=== PATIENT | male | born 1985 | race Caucasian/White ===

== ENCOUNTER 2021-07-14 23:42 | Emergency (ER) | payer SELFPAY ==
[2021-07-14 23:53] VITALS: BP 145/90; PULSE 81; RESP 18; TEMP 36.9; O2SAT 97; BMI 39.3
--- NOTE | 2021-07-15 00:16 | PC.NURSE ---
ultrasound at bedside
--- NOTE | 2021-07-15 00:27 | W.ED.GENADLT ---
HPI - General Adult General: Chief complaint: General Medical Stated complaint: Knot on Testicals Time Seen by Provider: 07/14/21 23:45 Source: patient Mode of arrival: ambulatory Limitations: no limitations History of Present Illness: HPI narrative: 36-year-old male states he been having right testicle pain over the last 2 to 3 days. He states he has a spot that he can feel in his right testicle it feels like a knot. Denies any worsening improving factors. Denies any fevers. States he does have some pain he rates a 4 out of 10. Denies any vomiting or diarrhea. Associated symptoms: Deny chest pain, dyspnea, headache(s), nausea, rash or vomiting Review of Systems Const: Denies: fever(s), chills, body aches or change in appetite Eyes: Denies: blurry vision or eye discomfort ENMT: Denies: throat pain or dental pain Card: Denies: chest pain Resp: Denies: dyspnea GI: Denies: abdominal pain, nausea, vomiting or diarrhea : Reports: testicular pain Musc: Denies: neck pain or back pain Skin/Breast: Denies: rash Neuro: Denies: headache(s) Psych: Denies: depression Maxwell/Lymph: Denies: easy bruising All/Imm: Denies: urticaria Physical Exam Const: COMMON NORMALS: no acute distress, patient oriented x3 and healthy appearing HENMT: COMMON NORMALS: normocephalic and atraumatic HEAD & SCALP: normocephalic and atraumatic Eye: COMMON NORMALS: Equal, round and reactive pupils present and EOMs intact bilaterally PUPIL: Yes Equal, round and reactive pupils present Neck/C-Spine: COMMON NORMALS: full ROM and supple Chest: COMMONS NORMALS: normal inspection of the chest and normal palpation of entire chest wall Resp: COMMON NORMALS: normal respiratory effort, No retractions, No use of accessory muscles and clear to auscultation bilaterally AUSCULTATION: clear to auscultation bilaterally Cardio: COMMON NORMALS: regular rate, regular rhythm and No murmurs present (Cardio) RATE: regular rate RHYTHM: regular rhythm GI: COMMON NORMALS: Normal to inspection, nondistended, normoactive bowel sounds present, Soft to palpation, non-tender and no masses PALPATION: Yes Soft to palpation : OTHER: Slight tenderness to right testicle with some thickened skin no obvious abscess. Extremity: COMMON NORMALS: normal to inspection and full ROM Neuro: COMMON NORMALS: patient oriented x3, moves all extremities and no focal motor deficits Psych: COMMON NORMALS: mental status grossly normal, Normal thought process present and cooperative THOUGHT PROCESS: Normal thought process present Skin: COMMON NORMALS: no rashes or lesions noted and no wounds GENERAL SKIN EXAM: no rashes or lesions noted Course Vital Signs: Vital signs: Vital Signs Temperature 98.5 F 07/14/21 23:53 Pulse Rate 81 07/14/21 23:53 Respiratory Rate 18 07/14/21 23:53 Blood Pressure 145/90 07/14/21 23:53 Pulse Oximetry 97 07/14/21 23:53 MDM - General Adult MDM Narrative: Medical decision making narrative: Patient presents here with likely some erythema cellulitis to his testicle. On exam its mild he has no signs of Junior's gangrene. He is afebrile here and nontoxic-appearing. We'll start him on Bactrim and Keflex and he is to follow-up with his PCP and return if worsening. He understands and agrees to plan. Imaging Data^: US: Radiologist's impression: [address] 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 Real-time duplex ultrasound scan of the arterial or venous flow with marte scale, color Doppler flow and spectral waveform analysis with image documentation. Limited Duplex exam focused of the scrotum. Duplex images required to evaluate for torsion and other vascular conditions. COMPARISON: No relevant prior studies available. FINDINGS: Right testicle: Unremarkable. Normal right testicular blood flow and waveform. Left testicle: Unremarkable. Normal left testicular blood flow and waveform. Epididymides: Normal. Scrotum: Thickened scrotal wall with increased vascularity, suggestive of cellulitis. No fluid collection. Physiologic-range peritesticular fluid bilaterally. / scrotum [id number] IMPRESSION: 1. Thickened scrotal wall with increased vascularity, suggestive of cellulitis. No fluid collection. 2. No testicular torsion. Dictated By: Javier Dahl MD Signed By: Javier Dahl MD Signed Date/Time: 07/15/2137 DD/ Discharge Plan Discharge Patient Disposition: Home Clinical Impression: Pain in right testicle, Cellulitis Condition: Stable Prescriptions: New Bactrim DS 800-160 mg tablet 1 tab PO BID 10 Days Qty: 20 RF: 0 cephalexin 500 mg capsule 500 mg PO TID 7 Days Qty: 21 RF: 0 Discharge Orders: Discharge ED (Routine); Ordered 07/15/21 Ordered By: Wilfrido Orozco Discharge Diet: Advance as tolerated Discharge Activity: Resume usual activity Patient Instructions: Testicle Pain (ED) Coding Level of Care Code ED Marble Machine Tender for Chg Fwd Exam Comprehensive
[2021-07-15] MEDS: sulfamethoxazole-trimeth DS 160-800 mg Tablet 1 TAB PO (00:51)
[2021-07-15 01:07] VITALS: PULSE 91; RESP 18
--- NOTE | 2021-07-15 09:35 | DCPLANNER ---
senior engineering manager had message to schedule a follow up appointment for patient with Dr. Alvarado. senior engineering manager called the office of Dr. Alvarado, spoke with Tanya, gave clinic patients information. senior engineering manager was told that patients information would be printed and reviewed. Clinic will call patient with appointment information.
--- NOTE | 2021-07-15 23:45 | USR_ITS ---
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 Real-time duplex ultrasound scan of the arterial or venous flow with marte scale, color Doppler flow and spectral waveform analysis with image documentation. Limited Duplex exam focused of the scrotum. Duplex images required to evaluate for torsion and other vascular conditions. COMPARISON: No relevant prior studies available. FINDINGS: Right testicle: Unremarkable. Normal right testicular blood flow and waveform. Left testicle: Unremarkable. Normal left testicular blood flow and waveform. Epididymides: Normal. Scrotum: Thickened scrotal wall with increased vascularity, suggestive of cellulitis. No fluid collection. Physiologic-range peritesticular fluid bilaterally. US/US scrotum [id number] IMPRESSION: 1. Thickened scrotal wall with increased vascularity, suggestive of cellulitis. No fluid collection. 2. No testicular torsion.
--- NOTE | 2021-07-16 10:06 | DCPLANNER ---
Patient has a follow up appointment scheduled for , July 16, 2021 at 10:[address] Alvarado. Clinic will call patient with appointment information.
--- NOTE | 2021-07-17 15:05 | DCPLANNER ---
A follow up appointment was scheduled for patient the appointment was cancelled due to clinic not being able to reach patient.
== END 2021-07-15 01:27 | disposition home or self-care (01) ==
PROVIDERS: Emergency Provider Emergency Medicine
DX: N50.811 Right testicular pain (principal); N49.2 Inflammatory disorders of scrotum
CPT/HCPCS: 76870; 99283

== ENCOUNTER 2021-09-24 18:38 | Emergency (ER) | payer SELFPAY ==
[2021-09-24 19:25] VITALS: BP 147/96; PULSE 100; RESP 18; TEMP 36.7; O2SAT 98; BMI 39.3
[2021-09-24 20:55] VITALS: PULSE 88; RESP 18; TEMP 36.2; O2SAT 99
--- NOTE | 2021-09-24 21:02 | ED_ITS ---
HPI - Skin/Abscess/Foreign Bdy General: Chief complaint: Skin/Abscess/Foreign Body Stated complaint: INFLAMMATION/SWELLING OF L LEG WOUND Time Seen by Provider: 09/24/21 20:51 History of Present Illness: HPI narrative: Patient is a 36-year-old male comes to the ED with left lower leg wound and swelling. Patient says yesterday he had a small superficial circular wound around the left lower leg. He says it was only the size of like a pinhead. He was not sure if he got it from a spider bite potentially or from something else. Today the wound got a little larger and has swelling and erythema surrounding it. Some purulent drainage noted. Describes the pain as throbbing and its an 8 out of 10. Associated symptoms: Deny chills, fever(s), nausea or vomiting Review of Systems Const: Denies: fever(s), chills or fatigue Eyes: Denies: change in vision or eye discomfort ENMT: Denies: throat pain, odynophagia, nasal discharge or nasal congestion Card: Denies: chest pain, palpitations, edema, swelling of feet/ankles, dyspnea on exertion or orthopnea Resp: Denies: dyspnea, productive cough or non-productive cough GI: Denies: abdominal pain, nausea, vomiting, diarrhea, constipation or hematochezia : Denies: flank pain, difficulty urinating, dysuria or hematuria Musc: Denies: neck pain, back pain or extremity swelling Skin/Breast: Reports: new lesions (Small wound on left lower leg with erythema and warmth.); Denies: rash Neuro: Denies: headache(s), numbness in extremities or weakness in extremities Physical Exam Const: COMMON NORMALS: no acute distress, patient oriented x3 and alert GENERAL APPEARANCE: cooperative and comfortable HENMT: COMMON NORMALS: normocephalic HEAD & SCALP: normocephalic MOUTH: Normal oral and palatal mucosa present THROAT: posterior oropharynx normal and uvula midline Neck/C-Spine: COMMON NORMALS: supple GENERAL: Yes normal visual inspection Resp: COMMON NORMALS: normal respiratory effort, No retractions, No use of accessory muscles and clear to auscultation bilaterally AUSCULTATION: clear to auscultation bilaterally Cardio: COMMON NORMALS: regular rate, regular rhythm, S1 normal heart sound present, S2 normal heart sound present, No gallops present (Cardio), No clicks present (Cardio), No murmurs present (Cardio) and Peripheral pulses 2+ throughout RATE: regular rate RHYTHM: regular rhythm HEART SOUNDS: S1 normal heart sound present and S2 normal heart sound present PERIPHERAL PULSES: Peripheral pulses 2+ throughout GI: COMMON NORMALS: Normal to inspection, nondistended, normoactive bowel sounds present, Soft to palpation, non-tender and no masses PALPATION: Yes Soft to palpation : COMMON NORMALS: Yes no CVA tenderness BLADDER/KIDNEY EXAM: Yes no CVA tenderness Back/Pelvis: COMMON NORMALS: no CVA tenderness Extremity: NARRATIVE EXTREMITY EXAM: Left lower leg?patient has small ulceration with surrounding erythema, warmth and tenderness. Some small purulent drainage noted. Findings suggestive of cellulitis GENERAL: Yes normal exam except as noted Neuro: COMMON NORMALS: patient oriented x3 and moves all extremities SENSORIUM/ORIENTATION: Yes alert Skin: GENERAL SKIN EXAM: dry skin Course Vital Signs: Vital signs: Vital Signs Temperature 97.1 F L 09/24/21 20:55 Pulse Rate 72 09/24/21 21:42 Respiratory Rate 18 09/24/21 21:42 Blood Pressure 147/96 09/24/21 19:25 Pulse Oximetry 98 09/24/21 21:42 MDM - Skin/Abscess/Foreign Bdy MDM Narrative: Medical decision making narrative: Patient is a 36-year-old male comes to the ED with left lower extremity lesion. Exam shows cellulitis on left lower extremity with some purulent drainage noted. Vitals are stable patient appears nontoxic and in no acute distress. Patient was given an IM dose of Rocephin to help with infection. Patient diagnosed with cellulitis and discharged home with a prescription for Bactrim and ibuprofen 800 mg for pain. Return to ED precautions given. Follow-up with PCP in 7 to 10 days for reevaluation. Patient understood and agreed with plan. Discharge Plan Discharge Patient Disposition: Home Clinical Impression: Cellulitis Qualifiers: Site of cellulitis: extremity Site of cellulitis of extremity: lower extremity Laterality: left Qualified Code(s): L03.116 - Cellulitis of left lower limb Condition: Stable Prescriptions: New Bactrim DS 800-160 mg tablet 1 tab PO BID 10 Days Qty: 20 RF: 0 ibuprofen 800 mg tablet 800 mg PO Q8H PRN (Reason: pain) Qty: 20 RF: 0 Discharge Orders: Discharge ED (Routine); Ordered 09/24/21 Ordered By: Chan Arango Discharge Diet: Regular Discharge Activity: Resume usual activity Patient Instructions: Cellulitis (ED) Activity Restrictions/Additional Instructions: Follow-up with medical provider as directed in 5 to 7 days for reevaluation. Take medications as prescribed. You should start noticing an improvement in symptoms after being on antibiotic for over 48 hours. You can ice and elevate left leg to help with some of the swelling. Return to the ER or your medical provider if condition worsens. Please read and understand discharge instructions. Thank you for choosing [facility] for your healthcare needs today. Please realize this is an emergency room and that we are providing you with a medical screening exam and this may not be complete and all inclusive of all the testing and or work up that you may need to determine your ailment or severity of your illness. It is very important that you follow up as instructed or that you return to the Emergency Department should you have concerns or if your con dition changes or worsens in any way. Coding Level of Care Code ED Customer Service Operator for Fabian Colón
[2021-09-24] MEDS: HYDROcodone-acetaminophen 7.5-325 mg Tablet 1 TAB PO (21:25)
[2021-09-24] MEDS: cefTRIAXone 1,000 MG in lidocaine 1% 2.1 ML 2 MG IM (21:25)
[2021-09-24 21:42] VITALS: PULSE 72; RESP 18; O2SAT 98
== END 2021-09-24 21:43 | disposition home or self-care (01) ==
PROVIDERS: Emergency Provider Physician Assistant
DX: L03.116 Cellulitis of left lower limb (principal)
CPT/HCPCS: 96372; 99283; J0696

== ENCOUNTER 2021-11-29 10:00 | Emergency (ER) | payer OTHER, SELFPAY ==
[2021-11-29 10:09] VITALS: BP 174/100; PULSE 95; RESP 15; TEMP 36.9; O2SAT 95; BMI 38.0
--- NOTE | 2021-11-29 10:19 | W.ED.SKABFB ---
HPI - Skin/Abscess/Foreign Bdy General: Chief complaint: Skin/Abscess/Foreign Body Stated complaint: KNOT ON RIGHT SHOULDER Time Seen by Provider: 11/29/21 10:18 Source: patient Mode of arrival: ambulatory Limitations: no limitations History of Present Illness: HPI narrative: Patient is a 36-year-old male who presents to ED today with a complaint of a possible abscess to his right upper back that he has noticed over the past 2 to 3 days. Patient states he does have a history of previous abscesses. He is not sure if culture had ever been obtained. Denies known history of MRSA. He states he did have a similar lesion to his left lower extremity a while back that was treated successfully with Bactrim. Patient states lesion to his back has not been draining. No fevers, chills, body aches. MD complaint: abscess/boil Onset (ago): day(s) Tetanus up to date: yes Location: back Pain Consistency: constant Relieving factors: none Exacerbating factors: none Context: none Associated symptoms: Reports no associated symptoms; Deny chills, fever(s), nausea or vomiting Treatments prior to arrival: none Review of Systems Const: Denies: fever(s), chills, body aches, fatigue or malaise GI: Denies: nausea, vomiting or diarrhea Skin/Breast: Reports: new lesions Neuro: Denies: numbness in extremities, weakness in extremities or sensory changes Physical Exam Const: COMMON NORMALS: no acute distress, patient oriented x3, no limitations and alert GENERAL APPEARANCE: cooperative NUTRITIONAL APPEARANCE: obese ORIENTATION/CONSCIOUSNESS: Yes awake, Yes oriented to person, Yes oriented to place and Yes oriented to time Back/Pelvis: COMMON NORMALS: thoracic and lumbar spine normal to inspection, no thoracic nor lumbar tenderness and thoraco-lumbar ROM normal BACK IMAGE (MALE): 1. 1.5 in mildly indurated erythematous developing abscess; no cyst; no drainage or fluctuance at this time Extremity: COMMON NORMALS: normal to inspection and full ROM GENERAL: Yes normal exam except as noted Neuro: COMMON NORMALS: patient oriented x3 SENSORIUM/ORIENTATION: Yes alert, Yes oriented to person, Yes oriented to place and Yes oriented to time Course Vital Signs: Vital signs: Vital Signs Temperature 98.5 F 11/29/21 10:09 Pulse Rate 95 11/29/21 10:09 Respiratory Rate 15 11/29/21 10:09 Blood Pressure 174/100 11/29/21 10:09 Pulse Oximetry 95 11/29/21 10:09 MDM - Skin/Abscess/Foreign Bdy MDM Narrative: Medical decision making narrative: Patient is not amendable to I&D at this time. Patient will be placed on Bactrim. Return to ED/follow up with PCP precautions given. Discharge Plan Discharge Patient Disposition: Home Clinical Impression: Abscess of skin or subcutaneous tissue Qualifiers: Site of cutaneous abscess: trunk Site of cutaneous abscess of trunk: back Qualified Code(s): L02.212 - Cutaneous abscess of back [any part, except buttock] Condition: Stable Prescriptions: New Bactrim DS 800-160 mg tablet 1 tab PO BID 7 Days Qty: 14 RF: 0 No Action ibuprofen 800 mg tablet 800 mg PO Q8H PRN (Reason: pain) Qty: 20 RF: 0 Discharge Orders: Discharge ED (Routine); Ordered 11/29/21 Ordered By: Radhika Jose Referrals: Rob Tyler, [facility] PROGRAM COORDINATOR-C [Primary Care Provider] - Patient Instructions: Sulfamethoxazole/Trimethoprim (By mouth) (Bactrim, Bactrim DS,..., Abscess (ED) Activity Restrictions/Additional Instructions: Please monitor your abscess for worsening symptoms such as worsening redness, swelling, increased drainage, red streaking, or fevers. If you have been on antibiotics for over 48 hours and continue to worsen you need to immediately return to the emergency department for re-evaluation. If your abscess was incised and drained and packing was placed, you should have received instructions on when to return to the emergency department for re-packing. Coding Level of Care Code ED Generator Operator for Fabian Colón
== END 2021-11-29 10:51 | disposition home or self-care (01) ==
PROVIDERS: Emergency Provider Physician Assistant; PCP Nurse Practitioner
DX: L02.12 Furuncle of neck (principal)
CPT/HCPCS: 99282

== ENCOUNTER 2021-12-02 10:17 | Emergency (ER) | payer OTHER, SELFPAY ==
[2021-12-02 11:06] VITALS: BP 157/83; PULSE 75; RESP 19; TEMP 37.1; O2SAT 99; BMI 39.3
--- NOTE | 2021-12-02 11:24 | W.ED.SKABFB ---
HPI - Skin/Abscess/Foreign Bdy General: Chief complaint: Extremity Problem,Nontraumatic Stated complaint: RIGHT SHOULDER PAIN Time Seen by Provider: 12/02/21 11:16 Source: patient Mode of arrival: ambulatory Limitations: no limitations History of Present Illness: HPI narrative: Patient is a 36-year-old male who presents to ED today for reevaluation of a right -sided back abscess. Patient was seen by myself 3 days ago and placed on Bactrim. Abscess was not amendable to I&D at that time. Patient states abscess is not seemed to improve much. He is complaining of pain around the abscess (shoulder/neck). Full ROM to these areas. Patient denies fevers, chills, body aches. He has not noticed any drainage from the abscess. MD complaint: abscess/boil Onset (ago): day(s) Tetanus up to date: yes Location: back Relieving factors: none Exacerbating factors: none Associated symptoms: Deny chills, fever(s), nausea or vomiting Treatments prior to arrival: antibiotic Review of Systems Const: Denies: fever(s), chills, body aches, fatigue or malaise Card: Denies: chest pain Resp: Denies: dyspnea GI: Denies: abdominal pain, nausea or vomiting Musc: Reports: neck pain and extremity pain; Denies: back pain, extremity swelling, joint pain, joint swelling, joint stiffness or limited range of motion Skin/Breast: Reports: other (abscess) Neuro: Denies: numbness in extremities, weakness in extremities or sensory changes Physical Exam Const: COMMON NORMALS: no acute distress, patient oriented x3, no limitations and alert GENERAL APPEARANCE: cooperative NUTRITIONAL APPEARANCE: obese ORIENTATION/CONSCIOUSNESS: Yes awake, Yes oriented to person, Yes oriented to place and Yes oriented to time Neck/C-Spine: COMMON NORMALS: full ROM CERVICAL SPINE: Yes cervical ROM normal and No Cervical spine tenderness Resp: COMMON NORMALS: normal respiratory effort and clear to auscultation bilaterally AUSCULTATION: clear to auscultation bilaterally Cardio: COMMON NORMALS: regular rate and regular rhythm RATE: regular rate RHYTHM: regular rhythm Extremity: COMMON NORMALS: normal to inspection and full ROM GENERAL: Yes normal exam except as noted Neuro: COMMON NORMALS: patient oriented x3 SENSORIUM/ORIENTATION: Yes alert, Yes oriented to person, Yes oriented to place and Yes oriented to time Skin: NARRATIVE SKIN EXAM: abscess to R posterior upper back/shoulder; abscess hasn't changed in size much since I last saw it (about 1.5 inches of erythema/induration)-very mild fluctuance noted today that wasn't there on previous visit Procedures Abscess I/D Site: back Side (if applicable): left Local Anesthetic: lidocaine 1% and with epi Amount of anesthesia used (mL): 3.0 Technique: incised with #11 blade Amount of fluid expressed (mL): 7 Irrigation: Yes Packing used?: plain Course Vital Signs: Vital signs: Vital Signs Temperature 98.7 F 12/02/21 11:06 Pulse Rate 75 12/02/21 11:06 Respiratory Rate 19 H 12/02/21 11:06 Blood Pressure 157/83 12/02/21 11:06 Pulse Oximetry 99 12/02/21 11:06 MDM - Skin/Abscess/Foreign Bdy MDM Narrative: Medical decision making narrative: Abscess was evaluated using bedside US and did show a small fluid collection therefore I&D was performed. Quite a bit of purulent drainage expressed-culture obtained. Wound was packed. He has PCP appointment in 2 days for follow up. Will have patient start taking 2 tabs Bactrim BID and plan for re-evaluation/possible re-pack on Tuesday. Return to ED precautions verbally given to patient. Discharge Plan Discharge Patient Disposition: Home Clinical Impression: Abscess of skin or subcutaneous tissue Qualifiers: Site of cutaneous abscess: trunk Site of cutaneous abscess of trunk: back Qualified Code(s): L02.212 - Cutaneous abscess of back [any part, except buttock] Condition: Stable Prescriptions: New acetaminophen-codeine 300-30 mg tablet 1 tab PO Q6H PRN (Reason: pain) Qty: 14 RF: 0 Bactrim DS 800-160 mg tablet 2 tab PO BID 5 Days Qty: 20 RF: 0 No Action ibuprofen 800 mg tablet 800 mg PO Q8H PRN (Reason: pain) Qty: 20 RF: 0 Bactrim DS 800-160 mg tablet 1 tab PO BID 7 Days Qty: 14 RF: 0 Discharge Orders: Discharge ED (Routine); Ordered 12/02/21 Ordered By: Radhika Jose Referrals: Rob Tyler, PUBLIC HOUSING MANAGER-C [Primary Care Provider] - Patient Instructions: Abscess (ED), Abscess Incision and Drainage (DC) Activity Restrictions/Additional Instructions: As we discussed I'm going to increase your Bactrim and I want you to take 2 tablets twice daily (a total of 4 tablets/day). You can use your current prescription until empty and then I have written you a new prescription for the remainder of the course Please monitor your abscess for worsening symptoms such as worsening redness, swelling, increased drainage, red streaking, or fevers. If you have been on antibiotics for over 48 hours and continue to worsen you need to immediately return to the emergency department for re-evaluation. If your abscess was incised and drained and packing was placed, you should have received instructions on when to return to the emergency department for re-packing. YOU HAVE AN APPOINTMENT WITH PRIMARY CARE ON TUESDAY-THEY CAN FOLLOW UP ON ABSCESS AND REPACK IF NEEDED. Coding Level of Care Code ED Loader Helper Sorting Yard for Fabian Fwmiladis Exam Detailed
[2021-12-02 12:24] VITALS: BP 150/80; PULSE 75; RESP 17; TEMP 37.1; O2SAT 99
== END 2021-12-02 12:26 | disposition home or self-care (01) ==
PROVIDERS: Emergency Provider Physician Assistant; PCP Nurse Practitioner
DX: L02.212 Cutaneous abscess of back [any part, except buttock and flank] (principal)
CPT/HCPCS: 10060; 87070; 87075; 87077; 87186; 87205; 99282

== ENCOUNTER → 2022-01-08 10:57 | Outpatient (BNVA) | payer OTHER, SELFPAY | PROVIDERS: PCP Nurse Practitioner; Visit Provider Nurse Practitioner Family | DX: I10 Essential (primary) hypertension (principal); R73.9 Hyperglycemia, unspecified | CPT/HCPCS: 80053; 80061; 83036; 84443; 85025 ==

== ENCOUNTER → 2022-03-26 11:31 | Outpatient (BNVA) | payer OTHER, SELFPAY | PROVIDERS: PCP Nurse Practitioner; Visit Provider Nurse Practitioner Family | DX: L02.11 Cutaneous abscess of neck (principal) | CPT/HCPCS: 87070; 87077; 87184 ==

== ENCOUNTER 2022-06-22 18:52 | Emergency (ER) | payer OTHER, SELFPAY ==
[2022-06-22 19:11] VITALS: BP 156/90; PULSE 71; RESP 18; TEMP 36.7; O2SAT 99; BMI 33.9
--- NOTE | 2022-06-22 19:11 | W.ED.UPPEXIN ---
HPI - Extremity Injury (Upper) General: Chief Complaint: General Medical Stated Complaint: RT finger swollen Time Seen by Provider: 06/22/22 19:10 History of Present Illness: 37-year-old male patient comes in with an infection to his right index finger. Patient reports having a splinter get into his finger in which his boss had dug out about a week ago. He does not think that his boss was able to get the splinter completely removed and since then has had increasing redness and soreness to the finger. 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 Review of Systems General: Reports: 10 or more systems reviewed and unremarkable except in HPI and below Skin/Breast: Reports: new lesions [facility] ED PFS: Medical History (Updated 06/22/22 @ 19:18 by RADHA Segal) Psychiatric care Type 2 diabetes mellitus Social History Smoking and tobacco status: current every day smoker Second hand smoke exposure: No Smoking risk assessment/counseling performed?: Yes Alcohol intake: never Desire information about alcohol rehabilitation?: No Counseling given: No Desire information about substance/drug rehabilitation?: No Counseling given: No Adopted: No Caregiver/support person: No Lives independently: Yes Household members: family Housing: House Marital status: Single Number of children: 1 Highest education level completed: GED or Equivalent service: No Current occupational status: employed History of recent travel: No Physical Exam Const: COMMON NORMALS: alert HENMT: HEAD & SCALP: normal to inspection Neck/C-Spine: COMMON NORMALS: full ROM Resp: COMMON NORMALS: normal respiratory effort Cardio: COMMON NORMALS: regular rate RATE: regular rate Extremity: RIGHT UPPER EXTREMITY: Yes hand & digits (Volar aspect PIP joint redness and swelling) Right hand and digits: Yes inspection, Yes palpation and Yes ROM exam (Decreased range of motion due to swelling and pain) Neuro: SENSORIUM/ORIENTATION: Yes alert Procedures Abscess I/D Site: hand Side (if applicable): right Local Anesthetic: lidocaine 2% Amount of anesthesia used (mL): 2 Technique: incised with #11 blade Amount of fluid expressed (mL): 1 Irrigation: Yes Packing used?: none Complications: bleeding (Mild) Course Vital Signs: Vital signs: Vital Signs Temperature 98.0 F 06/22/22 19:11 Pulse Rate 71 06/22/22 19:11 Respiratory Rate 18 06/22/22 19:11 Blood Pressure 156/90 06/22/22 19:11 Pulse Oximetry 99 06/22/22 19:11 MDM - Extremity Injury (Upper) Medical Decision Making Patient comes in with infected wound to the right index finger. On exam he noted redness and swelling at the PIP joint area. Distal pulses and cap refill is intact. Patient has tenderness to palpation. Differential diagnosis includes retained foreign body, abscess, tenosynovitis. No signs of tenosynovitis is noted. Abscess was lanced with debridement of callused material from the wound site. Patient tolerated well. Patient will be placed on Augmentin and Bactrim for strep and MRSA coverage. Patient reported understanding of care plan and need for follow-up or return to the ER. Discharge Plan Discharge Patient Disposition: Home Clinical Impression: Infected puncture wound of finger Qualifiers: Encounter type: initial encounter Qualified Code(s): S61.239A - Puncture wound without foreign body of unspecified finger without damage to nail, initial encounter Condition: Stable Prescriptions: New amoxicillin-pot clavulanate 875-125 mg tablet 1 tab PO BID Qty: 14 0RF sulfamethoxazole-trimethoprim 800-160 mg tablet 1 tab PO DAILY 7 Days Qty: 14 0RF hydrocodone-acetaminophen 5-325 mg tablet 1 tab PO Q8H PRN (Reason: pain (scale score 7-10)) Qty: 6 0RF Discontinued clindamycin HCl 300 mg capsule 300 mg PO TID Qty: 30 0RF No Action lisinopril 20 mg tablet 20 mg PO DAILY Qty: 30 5RF glipizide 5 mg tablet 5 mg PO DAILY Qty: 30 2RF (DME) blood-glucose meter Misc See Rx Instructions .Route Qty: 1 0RF Rx Instructions: As directed (DME) Blood Glucose Test Strip See Rx Instructions .Route Qty: 100 3RF Rx Instructions: once daily (DME) lancets 31 gauge misc See Rx Instructions .Route Qty: 100 3RF Rx Instructions: once daily ibuprofen 800 mg tablet 800 mg PO Q8H PRN (Reason: pain) Qty: 20 0RF Discharge Orders: Discharge ED (Routine); Ordered 06/22/22 Ordered By: Antonio Noel Referrals: Rob Tyler, [employer] [facility] [Primary Care Provider] - Discharge Diet: Usual diet Discharge Activity: Increase activity as tolerated Patient Instructions: Puncture Wound (ED) Activity Restrictions/Additional Instructions: Keep wound clean and dry. Change dressing when it becomes soiled or wet. Drink plenty of water with antibiotics. Use acetaminophen and ibuprofen for pain. Follow-up with primary care for further instruction. Return to ER for new concerns. Coding Level of Care Code ED Loss Prevention And Safety Manager for Fabian Colón
[2022-06-22] MEDS: sulfamethoxazole-trimeth DS 160-800 mg Tablet 1 TAB PO (19:26)
[2022-06-22] MEDS: amoxicillin-clav 875-125 mg Tablet 1 TAB PO (19:26)
[2022-06-22] MEDS: lidocaine 2% INJ 20 mL INJECTION (19:26)
[2022-06-22] MEDS: HYDROcodone-acetaminophen 5-325 mg Tablet 1 TAB PO (19:40)
== END 2022-06-22 20:08 | disposition home or self-care (01) ==
PROVIDERS: Emergency Provider Nurse Practitioner Family; PCP Nurse Practitioner
DX: S61.230A Puncture wound without foreign body of right index finger without damage to nail, initial encounter (principal); X58.XXXA Exposure to other specified factors, initial encounter; E11.9 Type 2 diabetes mellitus without complications; Z79.84 Long term (current) use of oral hypoglycemic drugs; F17.210 Nicotine dependence, cigarettes, uncomplicated
CPT/HCPCS: 99283

== ENCOUNTER → 2022-11-26 09:26 | Outpatient (BNVA) | payer OTHER, SELFPAY | PROVIDERS: PCP Nurse Practitioner; Visit Provider Nurse Practitioner Family | DX: E11.9 Type 2 diabetes mellitus without complications (principal) | CPT/HCPCS: 80053; 80061; 83036; 84443; 85025 ==

== ENCOUNTER 2022-11-30 09:00 | Emergency (ER) | payer OTHER, SELFPAY ==
[2022-11-30 09:16] VITALS: BP 165/92; PULSE 76; RESP 16; TEMP 36.6; O2SAT 99
[2022-11-30 10:12] LABS: Basophils # 0.1 10^3/uL (0.0-0.1); Basophils % 1.5 %; Eosinophils # 0.4 10^3/uL (0.0-0.8); Eosinophils % 5.2 %; Hematocrit 39.5 % (42.0-52.0); Hemoglobin 13.5 g/dL (11.7-16.6); Lymphocytes # 2.1 10^3/uL (0.8-4.8); Lymphocytes % 31.6 %; Mean Corpuscular HGB Conc 34.2 g/dL (30.0-36.0); Mean Corpuscular Hemoglobin 30.5 pg (28.0-34.0); Mean Corpuscular Volume 89.2 fl (80-94); Mean Platelet Volume 9.3 fL (7.4-10.4); Monocytes # 0.4 10^3/uL (0.2-0.9); Monocytes % 6.1 %; Neutrophils # 3.69 10^3/uL (1.8-7.7); Neutrophils % 55.5 %; Nucleated Red Blood Cells % 0 %; Platelet Count 266 10^3/cmm (130-400); Red Blood Count 4.43 10^6/uL (4.1-5.3); Red Cell Distribution Width 12.1 % (12.1-15.1); White Blood Count 6.7 10^3/uL (4.0-10.0)
--- NOTE | 2022-11-30 10:32 | W.ED.MALEGU ---
HPI - Male Genitourinary General: Chief complaint: Urogenital-Male Stated complaint: urinating blood Time Seen by Provider: 11/30/22 09:05 Source: patient Mode of arrival: ambulatory Limitations: no limitations History of Present Illness: Patient is a 37-year-old male who presents to ED today with a complaint of hematuria that he began noticing today. Patient states he has a history of a right nephrectomy secondary to renal cell cancer. 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 He does complain of some mild left flank pain. He tells me he has no previous history of kidney or ureter stones. Patient is not complaining of any difficulty with urination or dysuria. He has not had any fevers. MD Complaint: other (hematuria) Onset (ago): hour(s) Relieving factors: none Exacerbating factors: none Associated symptoms: Reports no associated symptoms and hematuria; Deny dysuria, nausea or vomiting Review of Systems Const: Denies: fever(s), chills, body aches, fatigue or malaise Card: Denies: chest pain Resp: Denies: dyspnea GI: Denies: abdominal pain, nausea, vomiting or diarrhea : Reports: flank pain and hematuria; Denies: difficulty urinating, dysuria, urinary frequency, urinary urgency, urinary hesitancy, genital pain or testicular pain Musc: Reports: back pain; Denies: neck pain, extremity pain or joint pain Skin/Breast: Denies: rash Neuro: Denies: headache(s), numbness in extremities, weakness in extremities or sensory changes PFS ED PFSH: Medical History Psychiatric care Type 2 diabetes mellitus Social History Smoking and tobacco status: former smoker Quit status (tobacco): has quit using tobacco Year quit tobacco: 2021 Second hand smoke exposure: Yes (At work.) Smoking risk assessment/counseling performed?: No Alcohol intake: former Desire information about alcohol rehabilitation?: No Counseling given: No Desire information about substance/drug rehabilitation?: No Counseling given: No Adopted: No Caregiver/support person: No Lives independently: Yes Household members: family Housing: House Marital status: Single Number of children: 1 Highest education level completed: GED or Equivalent service: No Current occupational status: employed History of recent travel: No Physical Exam Const: COMMON NORMALS: no acute distress, patient oriented x3, no limitations and alert GENERAL APPEARANCE: cooperative NUTRITIONAL APPEARANCE: obese ORIENTATION/CONSCIOUSNESS: Yes awake, Yes oriented to person, Yes oriented to place and Yes oriented to time Resp: COMMON NORMALS: normal respiratory effort and clear to auscultation bilaterally AUSCULTATION: clear to auscultation bilaterally Cardio: COMMON NORMALS: regular rate and regular rhythm RATE: regular rate RHYTHM: regular rhythm GI: COMMON NORMALS: Normal to inspection, nondistended, normoactive bowel sounds present, Soft to palpation, non-tender, No hepatosplenomegaly present and no masses PALPATION: Yes Soft to palpation and Yes No hepatosplenomegaly present : BLADDER/KIDNEY EXAM: Yes CVA tenderness (just below L CVA) Back/Pelvis: COMMON NORMALS: thoracic and lumbar spine normal to inspection, no thoracic nor lumbar tenderness and thoraco-lumbar ROM normal GENERAL BACK: Yes CVA tenderness (just below L CVA) Extremity: GENERAL: Yes normal exam except as noted Neuro: COMMON NORMALS: patient oriented x3 SENSORIUM/ORIENTATION: Yes alert, Yes oriented to person, Yes oriented to place and Yes oriented to time Skin: COMMON NORMALS: no rashes or lesions noted GENERAL SKIN EXAM: no rashes or lesions noted Course Vital Signs: Vital signs: Vital Signs Temperature 97.8 F 11/30/22 09:16 Pulse Rate 69 11/30/22 12:08 Respiratory Rate 17 11/30/22 12:08 Blood Pressure 139/79 11/30/22 12:08 Pulse Oximetry 98 11/30/22 12:08 Oxygen Delivery Ok thod 11/30/22 12:08 MDM - Male Medical Decision Making Patient's vital signs are stable. Blood work is non-concerning. He has a large amount of hematuria noted on his UA. After reviewing his CT scan it is actually opposite of what patient told me on his history. He has had a left nephrectomy. He has a 6 mm right ureteropelvic junction stone is most likely the cause for his hematuria. I am not sure why patient would be having left flank pain at this time. Patient still needs urology follow-up for the stone. He will still be given pain/nausea medications in case he requires them over the next few days once the stone starts moving. Return to ED precautions given. Lab Data 11/30/22 09:53 11/30/22 09:53 Radiology Impressions Abdomen/Pelvis CT 11/30/22 10:48 IMPRESSION: 1. 6 mm calculus right ureteropelvic junction resulting in minimal right-sided hydronephrosis. 2. Prior left nephrectomy. 3. Additional nonemergent findings as above. Laboratory Results WBC 6.7 10^3/uL (4.0-10.0) 11/30/22 09:53 RBC 4.43 10^6/uL (4.1-5.3) 11/30/22 09:53 Hgb 13.5 g/dL (11.7-16.6) 11/30/22 09:53 Hct 39.5 % (42.0-52.0) L 11/30/22 09:53 MCV 89.2 fl (80-94) 11/30/22 09:53 MCH 30.5 pg (28.0-34.0) 11/30/22 09:53 MCHC 34.2 g/dL (30.0-36.0) 11/30/22 09:53 RDW 12.1 % (12.1-15.1) 11/30/22 09:53 Plt Count 266 10^3/cmm (130-400) 11/30/22 09:53 MPV 9.3 fL (7.4-10.4) 11/30/22 09:53 Neut % (Auto) 55.5 % 11/30/22 09:53 Lymph % (Auto) 31.6 % 11/30/22 09:53 [place] % (Auto) 6.1 % 11/30/22 09:53 Eos % (Auto) 5.2 % 11/30/22 09:53 Baso % (Auto) 1.5 % 11/30/22 09:53 Neut # (Auto) 3.69 10^3/uL (1.8-7.7) 11/30/22 09:53 Lymph # (Auto) 2.1 10^3/uL (0.8-4.8) 11/30/22 09:53 [place] # (Auto) 0.4 10^3/uL (0.2-0.9) 11/30/22 09:53 Eos # (Auto) 0.4 10^3/uL (0.0-0.8) 11/30/22 09:53 Baso # (Auto) 0.1 10^3/uL (0.0-0.1) 11/30/22 09:53 Nucleated RBC % (auto) 0 % 11/30/22 09:53 Nucleated RBCs # 0.0 /100WBC 11/30/22 09:53 Sodium 137 mmol/L (136-145) 11/30/22 09:53 Potassium 3.8 mmol/L (3.5-5.1) 11/30/22 09:53 Chloride 102 mmol/L (98-107) 11/30/22 09:53 Carbon Dioxide 25 mmol/L (22-29) 11/30/22 09:53 Anion Gap 13.8 (5-19) 11/30/22 09:53 BUN 12 mg/dL (6-20) 11/30/22 09:53 Creatinine 0.9 mg/dL (0.7-1.2) 11/30/22 09:53 GFR Calculation 95.0 mL/min (90-130) 11/30/22 09:53 Glucose 102 mg/dL (65-115) 11/30/22 09:53 Calculated Osmolality 284 mOsm/kg (285-295) L 11/30/22 09:53 Calcium 9.1 mg/dL (8.5-10.5) 11/30/22 09:53 Total Bilirubin 0.2 mg/dL (0.15-1.2) 11/30/22 09:53 AST 22 U/L (0-40) 11/30/22 09:53 ALT 23 U/L (0-41) 11/30/22 09:53 Alkaline Phosphatase 93 U/L (40-130) 11/30/22 09:53 Total Protein 7.3 g/dL (6.6-8.7) 11/30/22 09:53 Albumin 4.4 g/dL (3.5-5.2) 11/30/22 09:53 Globulin 2.9 g/dL (1.3-4.6) 11/30/22 09:53 Urine Color Red (Yellow) 11/30/22 09:17 Urine Appearance Bloody (CLEAR) A 11/30/22 09:17 Urine pH 7 (5-7) 11/30/22 09:17 Ur Specific [place] 1.010 (1.005-1.030) 11/30/22 09:17 Urine Protein 2+ (Negative) H 11/30/22 09:17 Urine Glucose (UA) Norm (Normal) 11/30/22 09:17 Urine Ketones Negative (Negative) 11/30/22 09:17 Urine Blood 3+ (Negative) H 11/30/22 09:17 Urine Nitrate Negative (Negative) 11/30/22 09:17 Urine Bilirubin Neg (Negative) 11/30/22 09:17 Urine Urobilinogen Norm mg/dL (Negative) 11/30/22 09:17 Ur Leukocyte Esterase Negative (Negative) 11/30/22 09:17 Urine RBC Too numerous to cnt /hpf (0-2) H 11/30/22 09:17 Urine WBC 0-4 /hpf (0-5) H 11/30/22 09:17 Ur Squamous Epith Cells None /hpf (0-5) 11/30/22 09:17 Amorphous Sediment Not Reportable 11/30/22 09:17 Urine Bacteria 3+ /hpf (NONE) H 11/30/22 09:17 Discharge Plan Discharge Patient Disposition: Home Clinical Impression: Calculus of right ureter Condition: Stable Prescriptions: New hydrocodone-acetaminophen 5-325 mg tablet 1 tab PO Q6H PRN (Reason: pain) Qty: 14 0RF Flomax 0.4 mg capsule 0.4 mg PO DAILY Qty: 10 0RF ondansetron 4 mg tablet,disintegrating 4 mg PO Q8H PRN (Reason: nausea and vomiting) Qty: 14 0RF No Action (DME) blood-glucose meter Misc See Rx Instructions .Route Qty: 1 0RF Rx Instructions: As directed (DME) Blood Glucose Test Strip See Rx Instructions .Route Qty: 100 3RF Rx Instructions: once daily (DME) lancets 31 gauge misc See Rx Instructions .Route Qty: 100 3RF Rx Instructions: once daily lisinopril 20 mg tablet 20 mg PO DAILY Qty: 30 2RF glipizide 10 mg tablet 10 mg PO DAILY Qty: 30 2RF risperidone [Risperdal] 1 mg tablet 1 mg PO BID Qty: 60 2RF metformin 500 mg tablet extended release 24 hr 500 mg PO BID Depakote ER 500 mg tablet extended release 24 hr 500 mg PO BEDTIME Depakote ER 250 mg tablet extended release 24 hr 250 mg PO QAM Discharge Orders: Discharge ED (Routine); Ordered 11/30/22 Ordered By: Radhika Jose Referrals: Rob Tyler, [employer] [Primary Care Provider] - Jose Alejandro Alvarado MD [Physician] - Patient Instructions: Opioid Safety, Pain Management Coding Level of Care Code ED [facility] Sawyer for Chg Fwd Exam Comprehensive
[2022-11-30 10:37] LABS: Alanine Aminotransferase 23 U/L (0-41); Albumin Level 4.4 g/dL (3.5-5.2); Alkaline Phosphatase 93 U/L (40-130); Anion Gap 13.8 (5-19); Aspartate Amino Transferase 22 U/L (0-40); Blood Urea Nitrogen 12 mg/dL (6-20); Calcium 9.1 mg/dL (8.5-10.5); Carbon Dioxide 25 mmol/L (22-29); Chloride 102 mmol/L (98-107); Globulin 2.9 g/dL (1.3-4.6); Glucose 102 mg/dL (65-115); Osmolality Calculated 284 mOsm/kg (285-295); Potassium 3.8 mmol/L (3.5-5.1); Sodium 137 mmol/L (136-145); Total Bilirubin 0.2 mg/dL (0.15-1.2); Total Protein 7.3 g/dL (6.6-8.7)
[2022-11-30 10:44] LABS: Urine Appearance Bloody (CLEAR); Urine Color Red (Yellow)
[2022-11-30 10:45] LABS: Add Urine Microscopic? YES; Bilirubin Urine Neg (Negative); Blood Urine 3+ (Negative); Glucose Urine UA Norm (Normal); Ketones Urine Negative (Negative); Leukocyte Esterase Urine Negative (Negative); Nitrate Urine Negative (Negative); Protein Urine 2+ (Negative); RBC Urine TOO NUMEROUS TO CNT /hpf (0-2); Urobilinogen Urine Norm (Negative); WBC Urine 0-4 /hpf (0-5); pH Urine 7 (5-7)
[2022-11-30 10:46] LABS: Add Urine Culture? Yes; Bacteria Urine 3+ /hpf
--- NOTE | 2022-11-30 10:48 | CTR_ITS ---
PROCEDURE INFORMATION: Exam: CT Abdomen And Pelvis Without Contrast Exam date and time: 11/30/2022 10:57 AM Age: 37 years old Clinical indication: Abdominal pain; Flank; Left; Prior surgery; Surgery type: RT nephrectomy; Additional info: Hematuria, L flank pain, HX R nephrectomy for renal CA TECHNIQUE: Imaging protocol: Computed tomography of the abdomen and pelvis without contrast. Radiation optimization: All CT scans at this facility use at least one of these dose optimization techniques: automated exposure control; mA and/or kV adjustment per patient size (includes targeted exams where dose is matched to clinical indication); or iterative reconstruction. COMPARISON: US scrotum [id number] 07/15/2021 12:08 AM RADIATION DOSE METRICS: Total DLP (mGy-cm): 1270.77 FINDINGS: Lungs: Minor atelectatic changes posteriorly right lung base otherwise lung bases are clear. Liver: Normal. No mass. Gallbladder and bile ducts: Gallbladder has been removed. Bile ducts are not appreciably dilated. Pancreas: Unremarkable. Main pancreatic duct is not significantly dilated. Spleen: Normal. No splenomegaly. Adrenal glands: Normal. No mass. Kidneys and ureters: Left kidney is been removed. 6 mm the calculus right ureteral pelvic junction resulting in minimal right-sided hydronephrosis. Stomach and bowel: Scattered diverticula large bowel without evidence of diverticulitis. Appendix: Appendix has been removed. Intraperitoneal space: See Kidneys and ureters finding. Vasculature: Unremarkable. No abdominal aortic aneurysm. Lymph nodes: Unremarkable. No enlarged lymph nodes. Urinary bladder: Unremarkable as visualized. Reproductive: Unremarkable as visualized. Bones/joints: Scattered degenerative changes of the lower thoracic and lumbar spine. No acute bony abnormalities. Soft tissues: Unremarkable. CT/CT kidney stone [id number] IMPRESSION: 1. 6 mm calculus right ureteropelvic junction resulting in minimal right-sided hydronephrosis. 2. Prior left nephrectomy. 3. Additional nonemergent findings as above.
[2022-11-30 12:08] VITALS: BP 139/79; PULSE 69; RESP 17; O2SAT 98
--- NOTE | 2022-11-30 14:39 | DCPLANNER ---
Addendum entered by Tahmina Beatty 12/07/22 14:42: Patient had a follow up appointment scheduled with urology - patient did attend appointment. Addendum entered by Tahmina Beatty 12/01/22 14:14: Patient has a follow up appointment scheduled for Saturday, December 03, 2022 at 8:[address] borden at urology. Clinic will call patient with appointment. Original Note: rfid manager had message to schedule a follow up appointment for patient with urology. rfid manager sent patients information to the front office staff urology. Patients information will be printed and reviewed. Clinic will call patient with appointment information.
== END 2022-11-30 12:10 | disposition home or self-care (01) ==
PROVIDERS: Emergency Provider Physician Assistant; PCP Nurse Practitioner
DX: N13.2 Hydronephrosis with renal and ureteral calculous obstruction (principal); Z90.5 Acquired absence of kidney; Z79.84 Long term (current) use of oral hypoglycemic drugs; E11.9 Type 2 diabetes mellitus without complications; Z87.891 Personal history of nicotine dependence
CPT/HCPCS: 36415; 74176; 80053; 81001; 85025; 87086; 99284

== ENCOUNTER 2022-12-03 07:02 | Outpatient (CLI) | payer OTHER, SELFPAY ==
--- NOTE | 2022-12-03 07:19 | XR_ITS ---
WS: [id number] KUB, AP view, 12/03/2022 Clinical Data: STONES Comparison: Acute abdomen series, 02/09/2012. Findings: No abnormal intraabdominal masses or calcifications are seen. There is no dilatated small bowel or ev idence of obstruction. There is fecal material throughout the colon. There are clips to the left of the L3-L4 disc interspac e from surgery. There are clips from a cholecystectomy in the right upper quadrant. XR/XR KUB [id number] Impression: Moderate fecal material in the colon.
== END 2022-12-03 07:03 | disposition home or self-care (01) ==
LOC: RAD 07:03
PROVIDERS: PCP Nurse Practitioner; Visit Provider Urology
DX: N20.1 Calculus of ureter (principal)
CPT/HCPCS: 74018; 81003

== ENCOUNTER → 2022-12-23 10:04 | Outpatient (BNVA) | payer OTHER, SELFPAY | PROVIDERS: PCP Nurse Practitioner; Visit Provider Nurse Practitioner Family | DX: R07.9 Chest pain, unspecified (principal) | CPT/HCPCS: 80053; 84484; 85025 ==

== ENCOUNTER → 2022-12-30 16:33 | Outpatient (BNVA) | payer OTHER, SELFPAY | PROVIDERS: PCP Nurse Practitioner; Visit Provider Nurse Practitioner Family | DX: L02.212 Cutaneous abscess of back [any part, except buttock and flank] (principal); Z86.14 Personal history of Methicillin resistant Staphylococcus aureus infection | CPT/HCPCS: 87070; 87077; 87184 ==

== ENCOUNTER 2023-01-26 12:19 | Outpatient (CLI) | payer OTHER, SELFPAY ==
--- NOTE | 2023-01-26 12:32 | XR_ITS ---
WS: [id number] XR KUB [id number] REASON FOR EXAM: Renal Stone FINDINGS: Solitary right kidney. Calculus (7 mm) overlying the central right kidney unchanged compared to CT scan 11/30/2022 and KUB 12/03. No other urinary tract calculi. XR/XR KUB [id number] IMPRESSION: Solitary kidney with calculus as above.
== END 2023-01-26 12:20 | disposition home or self-care (01) ==
LOC: RAD 12:23
PROVIDERS: PCP Nurse Practitioner; Visit Provider Urology
DX: N20.0 Calculus of kidney (principal)
CPT/HCPCS: 74018; 81003

== ENCOUNTER 2023-02-22 07:52 | Emergency (ER) | payer OTHER, SELFPAY ==
[2023-02-22 07:59] VITALS: BP 159/96; PULSE 67; RESP 15; O2SAT 94
--- NOTE | 2023-02-22 08:06 | XR_ITS ---
WS: [id number] Exam: XR chest 1V portable [id number] Date/Time of Exam: 02/22/2023 8:08 AM Reason For Exam: chest pain Comparison 12/12/2012. Findings: The lungs are clear and fully expanded. Costophrenic angles are sharp. No infiltrates. Bronchovascula r relief appears normal. Cardiac silhouette is unremarkable. Bony elements are intact. XR/XR chest 1V portable [id number] IMPRESSION: Unremarkable chest radiograph.
[2023-02-22 08:08] VITALS: BP 159/96; PULSE 71; RESP 20; O2SAT 99
--- NOTE | 2023-02-22 08:11 | W.ED.CHESTPA ---
Documented by User: MIA Slater 02/22/23 10:55 HPI - Chest Pain General: Chief Complaint: Chest Pain Stated Complaint: sob, chest pain Time Seen by Provider: 02/22/23 08:01 Source: patient Mode of arrival: ambulatory Limitations: no limitations History of Present Illness: Patient is a 37-year-old male presents to ED today with a complaint of left-sided chest pain. Patient states he began noticing the pain yesterday and feels like pain is worse with inhalation and exhalation. Patient states he had similar discomforts approximately 6 years ago and was diagnosed with a pulmonary embolism. Patient states he was on anticoagulation for several years for it was discontinued. He denies any injury or trauma to his chest. Denies anything that could strain his chest wall. He has no known previous cardiac history. PMH is significant for morbid obesity, diabetes, HTN. He denies shortness of breath to me however he does tell nursing staff that he feels dyspneic. He denies calf pain/swelling. Denies URI symptoms. MD complaint: chest pain Onset (ago): day(s) (yesterday) Timing of current episode: constant Prior episodes: Yes Pain location: left chest Pain radiation: none Quality: sharp Relieving factors: nothing Exacerbating factors: inspiration Context: history of DVT/PE Associated symptoms: Deny abdominal pain, dyspnea, fever(s), nausea, palpitations, syncope or vomiting Treatment prior to arrival: none Risk Factors: Coronary artery disease risk factors: diabetes and hypertension Thoracic aortic dissection risk factors: none Pulmonary embolism risk factors: history of pulmonary embolism and morbid obesity Review of Systems Const: Denies: fever(s), chills, body aches, fatigue or malaise Eyes: Denies: change in vision or blurry vision Card: Reports: chest pain; Denies: palpitations, irregular heart rhythm, edema, swelling of feet/ankles, lightheadedness, syncope, pre-syncope, dyspnea on exertion, orthopnea, leg pain with exertion or acrocyanosis Resp: Denies: dyspnea, productive cough, non-productive cough, wheezing, pain on inspiration, hemoptysis or chest congestion GI: Denies: abdominal pain, nausea, vomiting, heartburn or diarrhea : Denies: difficulty urinating or dysuria Musc: Denies: neck pain, back pain, extremity pain, extremity swelling, joint pain, joint swelling, joint redness or joint warmth Skin/Breast: Denies: rash Neuro: Denies: headache(s), numbness in extremities, weakness in extremities, sensory changes, difficulty walking or dizziness PFSH ED PFSH: Medical History Hx of renal cell cancer Psychiatric care Type 2 diabetes mellitus Surgical History Hx of kidney removal left kidney 2014 Family History Mother , AT AGE 41 Cancer BREAST Father No problems noted. Social History Smoking and tobacco status: former smoker Quit status (tobacco): has quit using tobacco Year quit tobacco: 2021 Second hand smoke exposure: Yes (At work.) Smoking risk assessment/counseling performed?: No Alcohol intake: former Desire information about alcohol rehabilitation?: No Counseling given: No Desire information about substance/drug rehabilitation?: No Counseling given: No Adopted: No Caregiver/support person: No Lives independently: Yes Household members: family Housing: House Marital status: Number of children: 1 Highest education level completed: GED or Equivalent service: No Current occupational status: employed Physical Exam Const: COMMON NORMALS: no acute distress, patient oriented x3, no limitations and alert GENERAL APPEARANCE: cooperative NUTRITIONAL APPEARANCE: obese morbidly obese ORIENTATION/CONSCIOUSNESS: Yes awake, Yes oriented to person, Yes oriented to place and Yes oriented to time HENMT: COMMON NORMALS: normocephalic and atraumatic HEAD & SCALP: normal to inspection, normocephalic and atraumatic Neck/C-Spine: COMMON NORMALS: no meningeal signs and no JVD Chest: COMMONS NORMALS: normal inspection of the chest and normal palpation of entire chest wall Resp: COMMON NORMALS: normal respiratory effort and clear to auscultation bilaterally AUSCULTATION: clear to auscultation bilaterally Cardio: COMMON NORMALS: no JVD, regular rate and regular rhythm RATE: regular rate RHYTHM: regular rhythm GI: COMMON NORMALS: Normal to inspection, nondistended, normoactive bowel sounds present, Soft to palpation and non-tender PALPATION: Yes Soft to palpation Extremity: COMMON NORMALS: normal to inspection, capillary refill normal, no clubbing, cyanosis or edema, no calf tenderness and no pedal edema GENERAL: Yes normal exam except as noted Neuro: ANALIA COMA SCALE: document GCS findings Rowena coma scale eye opening: Spontaneous Rowena coma scale verbal response: Orientated Analia coma scale motor response: Obey commands Rowena coma scale total score: 15 COMMON NORMALS: patient oriented x3 SENSORIUM/ORIENTATION: Yes alert, Yes oriented to person, Yes oriented to place and Yes oriented to time MENINGEAL SIGNS: Yes no meningeal signs Skin: COMMON NORMALS: no rashes or lesions noted GENERAL SKIN EXAM: no rashes or lesions noted Course Vital Signs: Vital signs: Vital Signs Pulse Rate 71 02/22/23 08:08 Respiratory Rate 20 H 02/22/23 08:08 Blood Pressure 159/96 02/22/23 08:41 Pulse Oximetry 99 02/22/23 08:08 Oxygen Delivery Me thod 02/22/23 08:08 MDM - Chest Pain Medical Decision Making Patient is a 37-year-old male who presents to ED today with complaint of left-sided chest pain. He states the pain felt similar to when he was diagnosed with a PE 6 years ago. He states he was on anticoagulation at that time for several years before it was discontinued. He does not complain of shortness of breath to me however did endorse this to nursing staff. On arrival patient's vital signs are stable. He is satting at 99% on room air. Patient's initial lab work evaluation was unremarkable apart from his elevated D-dimer at 1.74. CTA imaging obtained which does show bilateral segmental and subsegmental pulmonary emboli. Patient has no evidence of right heart strain on his EKGs. Patient will be discharged home with a starter pack of Xarelto. He needs to follow-up with his primary care provider as soon as possible. Asked him to speak to them in regards to a possible referral to hematology as this is now patient's second seemingly unprovoked episode of pulmonary emboli. Patient is agreeable and verbalizes understanding of discharge instructions. Strict return ED precautions given. Lab Data 02/22/23 08:10 02/22/23 08:10 Radiology Impressions Chest X-Ray 02/22/23 08:06 IMPRESSION: Unremarkable chest radiograph. Chest CTA 02/22/23 08:59 IMPRESSION: 1. Bilateral acute segmental and subsegmental pulmonary emboli described above. 2. Tiny LEFT and trace RIGHT pleural fluid. 3. No focal pneumonia. Notified MIA Slater at 02/22/2023 10:25 AM. Laboratory Results WBC 8.5 10^3/uL (4.0-10.0) 02/22/23 08:10 RBC 4.58 10^6/uL (4.1-5.3) 02/22/23 08:10 Hgb 13.7 g/dL (11.7-16.6) 02/22/23 08:10 Hct 40.7 % (42.0-52.0) L 02/22/23 08:10 MCV 88.9 fl (80-94) 02/22/23 08:10 MCH 29.9 pg (28.0-34.0) 02/22/23 08:10 MCHC 33.7 g/dL (30.0-36.0) 02/22/23 08:10 RDW 12.0 % (12.1-15.1) L 02/22/23 08:10 Plt Count 258 10^3/cmm (130-400) 02/22/23 08:10 MPV 9.1 fL (7.4-10.4) 02/22/23 08:10 Neut % (Auto) 64.1 % 02/22/23 08:10 Lymph % (Auto) 23.9 % 02/22/23 08:10 [place] % (Auto) 5.9 % 02/22/23 08:10 Eos % (Auto) 4.9 % 02/22/23 08:10 Baso % (Auto) 1.1 % 02/22/23 08:10 Neut # (Auto) 5.42 10^3/uL (1.8-7.7) 02/22/23 08:10 Lymph # (Auto) 2.0 10^3/uL (0.8-4.8) 02/22/23 08:10 [place] # (Auto) 0.5 10^3/uL (0.2-0.9) 02/22/23 08:10 Eos # (Auto) 0.4 10^3/uL (0.0-0.8) 02/22/23 08:10 Baso # (Auto) 0.1 10^3/uL (0.0-0.1) 02/22/23 08:10 Nucleated RBC % (auto) 0 % 02/22/23 08:10 Nucleated RBCs # 0.0 /100WBC 02/22/23 08:10 D-Dimer 1.74 ug/mIFEU (0-0.59) H 02/22/23 08:10 Sodium 141 mmol/L (136-145) 02/22/23 08:10 Potassium 4.1 mmol/L (3.5-5.1) 02/22/23 08:10 Chloride 104 mmol/L (98-107) 02/22/23 08:10 Carbon Dioxide 24 mmol/L (22-29) 02/22/23 08:10 Anion Gap 17.1 (5-19) 02/22/23 08:10 BUN 13 mg/dL (6-20) 02/22/23 08:10 Creatinine 0.9 mg/dL (0.7-1.2) 02/22/23 08:10 GFR Calculation 95.0 mL/min (90-130) 02/22/23 08:10 Glucose 122 mg/dL (65-115) H 02/22/23 08:10 Calculated Osmolality 293 mOsm/kg (285-295) 02/22/23 08:10 Calcium 8.8 mg/dL (8.5-10.5) 02/22/23 08:10 Total Bilirubin 0.4 mg/dL (0.15-1.2) 02/22/23 08:10 AST 16 U/L (0-40) 02/22/23 08:10 ALT 20 U/L (0-41) 02/22/23 08:10 Alkaline Phosphatase 112 U/L (40-130) 02/22/23 08:10 Troponin T Baseline 9 ng/L (0-15) 02/22/23 08:10 Troponin T 120 Minute 6.00 ng/L (0-15) 02/22/23 10:11 Delta Troponin T -3.0 ABS# (0-10) L 02/22/23 10:11 Total Protein 7.0 g/dL (6.6-8.7) 02/22/23 08:10 Albumin 4.4 g/dL (3.5-5.2) 03/28/23 08:10 Globulin 2.6 g/dL (1.3-4.6) 02/22/23 08:10 Discharge Plan Discharge Patient Disposition: Home Clinical Impression: Bilateral pulmonary embolism Condition: Stable Prescriptions: New Xarelto DVT-PE Treat 30d Start 15 mg (42)- 20 mg (9) tablets,dose pack See Rx Instructions .ROUTE .COMPLEX Qty: 51 0RF Protocol: Xarelto Dose Pack Condition: Start Dose/Route: 15 mg twice daily Instruction: after 21 days, Condition: Transition to Dose/Route: 20 mg once daily Instruction: thereafter Rx Instructions: take one-15 mg tablet twice daily for 21 days, then one-20 mg tablet once daily; must take with meal/food orally No Action (DME) blood-glucose meter Misc See Rx Instructions .Route Qty: 1 0RF Rx Instructions: As directed (DME) Blood Glucose Test Strip See Rx Instructions .Route Qty: 100 3RF Rx Instructions: once daily (DME) lancets 31 gauge misc See Rx Instructions .Route Qty: 100 3RF Rx Instructions: once daily risperidone 0.5 mg tablet 0.5 mg PO BID Qty: 60 2RF Depakote ER 500 mg tablet extended release 24 hr 500 mg PO BEDTIME Qty: 30 2RF pantoprazole [Protonix] 40 mg tablet,delayed release (DR/EC) 40 mg PO DAILY Qty: 30 2RF glipizide 10 mg tablet 10 mg PO DAILY Qty: 30 2RF lisinopril 30 mg tablet 30 mg PO DAILY Qty: 30 2RF Discharge Orders: Discharge ED (Routine); Ordered 02/22/23 Ordered By: Radhika Jose Referrals: Yodit Fernandes FNP-C [Primary Care Provider] - Patient Instructions: Rivaroxaban (By mouth) (Xarelto, Xarelto Starter Pack), Rivaroxaban (By mouth), Pulmonary Embolism (ED), Pulmonary Embolism Activity Restrictions/Additional Instructions: As we discussed you need to fill your prescription and start TODAY. You need to follow-up with your primary care provider soon as possible for re-evaluation. I would like you to speak to them in regards to a senior information security architect referral as you now have had two seemingly unprovoked episodes of pulmonary emboli. You need to return to the emergency department for severe chest pain, shortness of breath, difficulty breathing, passing out episodes, or any other concerns you may have. Coding Level of Care Code ED Pneumatic Tool Operator for Chg Fwd Documented by User: Haja Cisneros DO 02/22/23 15:19 HPI - Chest Pain General: Chief Complaint: Chest Pain Stated Complaint: sob, chest pain Time Seen by Provider: 02/22/23 08:01 PFS ED PFSH: Medical History Hx of renal cell cancer Psychiatric care Type 2 diabetes mellitus Surgical History Hx of kidney removal left kidney 2013 Family History Mother , AT AGE 41 Cancer BREAST Father No problems noted. Social History Smoking and tobacco status: former smoker Quit status (tobacco): has quit using tobacco Year quit tobacco: 2021 Second hand smoke exposure: Yes (At work.) Smoking risk assessment/counseling performed?: No Alcohol intake: former Desire information about alcohol rehabilitation?: No Counseling given: No Desire information about substance/drug rehabilitation?: No Counseling given: No Adopted: No Caregiver/support person: No Lives independently: Yes Household members: family Housing: House Marital status: Number of children: 1 Highest education level completed: GED or Equivalent service: No Current occupational status: employed Physical Exam Neuro: ANALIA COMA SCALE: document GCS findings Rowena coma scale total score: 15 Course Vital Signs: Vital signs: Vital Signs Pulse Rate 71 02/22/23 08:08 Respiratory Rate 20 H 02/22/23 08:08 Blood Pressure 159/96 02/22/23 08:41 Pulse Oximetry 99 02/22/23 08:08 Oxygen Delivery Me thod 02/22/23 08:08 MDM - Chest Pain Medical Decision Making Patient is a 37-year-old male who presents to ED today with complaint of left-sided chest pain. He states the pain felt similar to when he was diagnosed with a PE 6 years ago. He states he was on anticoagulation at that time for several years before it was discontinued. He does not complain of shortness of breath to me however did endorse this to nursing staff. On arrival patient's vital signs are stable. He is satting at 99% on room air. Patient's initial lab work evaluation was unremarkable apart from his elevated D-dimer at 1.74. CTA imaging obtained which does show bilateral segmental and subsegmental pulmonary emboli. Patient has no evidence of right heart strain on his EKGs. Patient will be discharged home with a starter pack of Xarelto. He needs to follow-up with his primary care provider as soon as possible. Asked him to speak to them in regards to a possible referral to hematology as this is now patient's second seemingly unprovoked episode of pulmonary emboli. Patient is agreeable and verbalizes understanding of discharge instructions. Strict return ED precautions given. Chart reviewed and patient discussed with midlevel. Agree with assessment and plan. Lab Data 02/22/23 08:10 02/22/23 08:10 Radiology Impressions Chest X-Ray 02/22/23 08:06 IMPRESSION: Unremarkable chest radiograph. Chest CTA 02/22/23 08:59 IMPRESSION: 1. Bilateral acute segmental and subsegmental pulmonary emboli described above. 2. Tiny LEFT and trace RIGHT pleural fluid. 3. No focal pneumonia. Notified MIA Slater at 02/22/2023 10:25 AM. Laboratory Results WBC 8.5 10^3/uL (4.0-10.0) 02/22/23 08:10 RBC 4.58 10^6/uL (4.1-5.3) 02/22/23 08:10 Hgb 13.7 g/dL (11.7-16.6) 02/22/23 08:10 Hct 40.7 % (42.0-52.0) L 02/22/23 08:10 MCV 88.9 fl (80-94) 02/22/23 08:10 MCH 29.9 pg (28.0-34.0) 02/22/23 08:10 MCHC 33.7 g/dL (30.0-36.0) 02/22/23 08:10 RDW 12.0 % (12.1-15.1) L 02/22/23 08:10 Plt Count 258 10^3/cmm (130-400) 02/22/23 08:10 MPV 9.1 fL (7.4-10.4) 02/22/23 08:10 Neut % (Auto) 64.1 % 02/22/23 08:10 Lymph % (Auto) 23.9 % 02/22/23 08:10 [place] % (Auto) 5.9 % 02/22/23 08:10 Eos % (Auto) 4.9 % 02/22/23 08:10 Baso % (Auto) 1.1 % 02/22/23 08:10 Neut # (Auto) 5.42 10^3/uL (1.8-7.7) 02/22/23 08:10 Lymph # (Auto) 2.0 10^3/uL (0.8-4.8) 02/22/23 08:10 [place] # (Auto) 0.5 10^3/uL (0.2-0.9) 02/22/23 08:10 Eos # (Auto) 0.4 10^3/uL (0.0-0.8) 02/22/23 08:10 Baso # (Auto) 0.1 10^3/uL (0.0-0.1) 02/22/23 08:10 Nucleated RBC % (auto) 0 % 02/22/23 08:10 Nucleated RBCs # 0.0 /100WBC 02/22/23 08:10 D-Dimer 1.74 ug/mIFEU (0-0.59) H 02/22/23 08:10 Sodium 141 mmol/L (136-145) 02/22/23 08:10 Potassium 4.1 mmol/L (3.5-5.1) 02/22/23 08:10 Chloride 104 mmol/L (98-107) 02/22/23 08:10 Carbon Dioxide 24 mmol/L (22-29) 02/22/23 08:10 Anion Gap 17.1 (5-19) 02/22/23 08:10 BUN 13 mg/dL (6-20) 02/22/23 08:10 Creatinine 0.9 mg/dL (0.7-1.2) 02/22/23 08:10 GFR Calculation 95.0 mL/min (90-130) 02/22/23 08:10 Glucose 122 mg/dL (65-115) H 02/22/23 08:10 Calculated Osmolality 293 mOsm/kg (285-295) 02/22/23 08:10 Calcium 8.8 mg/dL (8.5-10.5) 02/22/23 08:10 Total Bilirubin 0.4 mg/dL (0.15-1.2) 02/22/23 08:10 AST 16 U/L (0-40) 02/22/23 08:10 ALT 20 U/L (0-41) 02/22/23 08:10 Alkaline Phosphatase 112 U/L (40-130) 02/22/23 08:10 Troponin T Baseline 9 ng/L (0-15) 02/22/23 08:10 Troponin T 120 Minute 6.00 ng/L (0-15) 02/22/23 10:11 Delta Troponin T -3.0 ABS# (0-10) L 02/22/23 10:11 Total Protein 7.0 g/dL (6.6-8.7) 02/22/23 08:10 Albumin 4.4 g/dL (3.5-5.2) 02/22/23 08:10 Globulin 2.6 g/dL (1.3-4.6) 02/22/23 08:10 Discharge Plan Discharge Patient Disposition: Home Clinical Impression: Bilateral pulmonary embolism Condition: Stable Prescriptions: New Xarelto DVT-PE Treat 30d Start 15 mg (42)- 20 mg (9) tablets,dose pack See Rx Instructions .ROUTE .COMPLEX Qty: 51 0RF Protocol: Xarelto Dose Pack Condition: Start Dose/Route: 15 mg twice daily Instruction: after 21 days, Condition: Transition to Dose/Route: 20 mg once daily Instruction: thereafter Rx Instructions: take one-15 mg tablet twice daily for 21 days, then one-20 mg tablet once daily; must take with meal/food orally No Action (DME) blood-glucose meter Misc See Rx Instructions .Route Qty: 1 0RF Rx Instructions: As directed (DME) Blood Glucose Test Strip See Rx Instructions .Route Qty: 100 3RF Rx Instructions: once daily (DME) lancets 31 gauge misc See Rx Instructions .Route Qty: 100 3RF Rx Instructions: once daily risperidone 0.5 mg tablet 0.5 mg PO BID Qty: 60 2RF Depakote ER 500 mg tablet extended release 24 hr 500 mg PO BEDTIME Qty: 30 2RF pantoprazole [Protonix] 40 mg tablet,delayed release (DR/EC) 40 mg PO DAILY Qty: 30 2RF glipizide 10 mg tablet 10 mg PO DAILY Qty: 30 2RF lisinopril 30 mg tablet 30 mg PO DAILY Qty: 30 2RF Discharge Orders: Discharge ED (Routine); Ordered 02/22/23 Ordered By: Radhika Jose Referrals: Yodit Fernandes FNP-C [Primary Care Provider] - Patient Instructions: Rivaroxaban (By mouth) (Xarelto, Xarelto Starter Pack), Rivaroxaban (By mouth), Pulmonary Embolism (ED), Pulmonary Embolism Activity Restrictions/Additional Instructions: As we discussed you need to fill your prescription and start TODAY. You need to follow-up with your primary care provider soon as possible for re-evaluation. I would like you to speak to them in regards to a senior information security architect referral as you now have had two seemingly unprovoked episodes of pulmonary emboli. You need to return to the emergency department for severe chest pain, shortness of breath, difficulty breathing, passing out episodes, or any other concerns you may have. Coding Level of Care Code ED Pneumatic Tool Operator for Fabian Colón
--- NOTE | 2023-02-22 08:15 | ECG_ITS ---
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 Measurements Intervals [place] Rate: 77 P: 35 VA: 210 QRS: 10 QRSD: 103 T: 31 QT: 386 QTc: 437 Interpretive Statements SINUS RHYTHM WITH FIRST DEGREE AV BLOCK POSSIBLE RIGHT VENTRICULAR CONDUCTION DELAY [RSR (QR) IN V1/V2] No previous ECG available for comparison Electronically Signed On 02-23-2023 0:24:20 CDT by Marc Tapia M.D. [id number]
[2023-02-22 08:22] LABS: Basophils # 0.1 10^3/uL (0.0-0.1); Basophils % 1.1 %; Eosinophils # 0.4 10^3/uL (0.0-0.8); Eosinophils % 4.9 %; Hematocrit 40.7 % (42.0-52.0); Hemoglobin 13.7 g/dL (11.7-16.6); Lymphocytes % 23.9 %; Mean Corpuscular HGB Conc 33.7 g/dL (30.0-36.0); Mean Corpuscular Hemoglobin 29.9 pg (28.0-34.0); Mean Corpuscular Volume 88.9 fl (80-94); Mean Platelet Volume 9.1 fL (7.4-10.4); Monocytes # 0.5 10^3/uL (0.2-0.9); Monocytes % 5.9 %; Neutrophils # 5.42 10^3/uL (1.8-7.7); Neutrophils % 64.1 %; Nucleated Red Blood Cells % 0 %; Platelet Count 258 10^3/cmm (130-400); Red Blood Count 4.58 10^6/uL (4.1-5.3); White Blood Count 8.5 10^3/uL (4.0-10.0)
[2023-02-22 08:41] VITALS: BP 159/96
[2023-02-22 08:56] LABS: Troponin(5th) Baseline 9 ng/L (0-15)
[2023-02-22 08:57] LABS: D Dimer 1.74 ug/mIFEU (0-0.59)
[2023-02-22 08:59] LABS: Alanine Aminotransferase 20 U/L (0-41); Albumin Level 4.4 g/dL (3.5-5.2); Alkaline Phosphatase 112 U/L (40-130); Anion Gap 17.1 (5-19); Aspartate Amino Transferase 16 U/L (0-40); Blood Urea Nitrogen 13 mg/dL (6-20); Calcium 8.8 mg/dL (8.5-10.5); Carbon Dioxide 24 mmol/L (22-29); Chloride 104 mmol/L (98-107); Globulin 2.6 g/dL (1.3-4.6); Glucose 122 mg/dL (65-115); Osmolality Calculated 293 mOsm/kg (285-295); Potassium 4.1 mmol/L (3.5-5.1); Sodium 141 mmol/L (136-145); Total Bilirubin 0.4 mg/dL (0.15-1.2)
--- NOTE | 2023-02-22 08:59 | CT_ITS ---
WS: [id number] CTA OF THE CHEST WITH PULMONARY EMBOLISM PROTOCOL TECHNIQUE: High-resolution contrast enhanced CTA of the chest with coronal and sagittal reformatted i mages with pulmonary embolism protocol. MIP images are also reviewed. CLINICAL INFORMATION: L chest pain, previous PE, elevated d dimer COMPARISON: None. DLP: 509.[address] scans at [facility] use at least one of these dose optimization techniques: automated e xposure control; mA and/or kV adjustment per patient size (includes targeted exams where dose is matc hed to clinical indication); or iterative reconstruction. FINDINGS: Proximal main pulmonary arteries are normal. Filling defects in the segmental and subsegmental pulmon kyle arteries bilaterally worse in the RIGHT upper lobe. Additional filling defects are seen in the RI GHT lower lobe LEFT upper lobe and LEFT lower lobe distally. No evidence of RIGHT heart strain. No pericardial effusion. Normal caliber thoracic aorta. Tiny LEFT pleural effusion. Trace RIGHT pleur al fluid. No focal pneumonia. Cholecystectomy clips. Normal GE junction. CT/CT angio chest PE protcl [id number] IMPRESSION: 1. Bilateral acute segmental and subsegmental pulmonary emboli described above . 2. Tiny LEFT and trace RIGHT pleural fluid. 3. No focal pneumonia. Notified MIA Slater at 02/22/2023 10:25 AM.
[2023-02-22] MEDS: iohexol 350 mg/mL 500 mL Btl (per mL) IV (09:57)
[2023-02-22] MEDS: sodium chloride 0.9% 1,000 ML 999 ML IV (10:00)
--- NOTE | 2023-02-22 10:06 | ECG_ITS ---
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 Measurements Intervals [place] Rate: 59 P: 49 [place]: 207 QRS: 14 QRSD: 91 T: 32 QT: 400 QTc: 399 Interpretive Statements SINUS BRADYCARDIA WITH SINUS ARRHYTHMIA Compared to ECG 02/22/2023 08:15:10 Sinus rhythm no longer present First degree AV block no longer present Electronically Signed On 02-23-2023 0:47:56 CDT by Marc Tapia M.D. [id number]
== END 2023-02-22 10:57 | disposition home or self-care (01) ==
PROVIDERS: Emergency Provider Physician Assistant; PCP Nurse Practitioner Family
DX: I26.99 Other pulmonary embolism without acute cor pulmonale (principal); Z79.84 Long term (current) use of oral hypoglycemic drugs; E11.9 Type 2 diabetes mellitus without complications; Z85.528 Personal history of other malignant neoplasm of kidney; Z87.891 Personal history of nicotine dependence
CPT/HCPCS: 36415; 71045; 71275; 80053; 84484; 85025; 85378; 93005; 96360; 99285; J7030; Q9967

== ENCOUNTER 2023-03-07 14:12 | Outpatient (CLI) | payer OTHER, SELFPAY ==
--- NOTE | 2023-03-07 14:22 | XR_ITS ---
WS: [id number] EXAMINATION: XR KUB [id number] REASON FOR EXAM: Stones COMPARISON: 01/26/2023 ORDER DATE: 03/07/2023 2:45 PM FINDINGS: There is a nonspecific colonic gas pattern with scattered fecal content and gas. There is no sign of significant small bowel dilation. Postcholecystectomy change with additional surgical clips in the l eft mid abdomen.Solitary right kidney. Calculus (7 mm) overlying the central right kidney unchanged compared to CT scan 11/30/2022 and previou s KUB. Is also again noted a faint calcification as on the previous study below the lower pole of the left kidney of similar size. There is another similar calcification superimposing the upper pole radha tral calyx above the mid right 12th rib. XR/XR KUB [id number] IMPRESSION: 1 or 2 possible renal calculi or calcifications on the right unchanged from the previous study
== END 2023-03-07 14:13 | disposition home or self-care (01) ==
LOC: RAD 14:14
PROVIDERS: PCP Nurse Practitioner Family; Visit Provider Urology
DX: N12 Tubulo-interstitial nephritis, not specified as acute or chronic (principal); N20.0 Calculus of kidney
CPT/HCPCS: 74018; 81003

== ENCOUNTER 2023-03-10 12:53 | Oncology outpatient (recurring) (ONCR) | payer OTHER, SELFPAY | END 2023-03-27 23:59 | disposition home or self-care (01) | LOC: ONCMED 12:53 | PROVIDERS: PCP Nurse Practitioner Family; Visit Provider Internal Medicine Medical Oncology | DX: I26.99 Other pulmonary embolism without acute cor pulmonale (principal) ==

== ENCOUNTER 2023-03-11 14:05 | Outpatient (CLI) | payer OTHER, SELFPAY ==
--- NOTE | 2023-03-11 14:15 | USCV_ITS ---
Tito Mcgill Age: 37 Gender: M : 1985 Exam Date: 03/11/2023 14:47 Ordering Phys: Yodit Fernandes SURFACE LAY OUT TECHNICIAN-Brian Technologist: Exam Location[place] [facility] [place]ication: lt leg pain and swelling hx of multiple blood clots PROCEDURES: Venous duplex imaging was performed in only the left lower extremity. The following venous structures were evaluated: common femoral vein, profunda vein, proximal portion of the greater saphenous vein, superficial femoral vein, and the popliteal vein. In addition, the posterior tibial and peroneal trunk were evaluated. FINDINGS: Normal 2-D Doppler and augmentation and compressibility throughout the lower extremity venous structures. Additional imaging through the proximal calf veins also reveals no thrombus. Limited evaluation of the greater saphenous vein is patent with no thrombus. CONCLUSIONS No evidence of left lower extremity DVT. Yanick Grimm MD (Electronically Signed) Final Date: 11 March 2023 15:59 S
== END 2023-03-11 14:06 | disposition home or self-care (01) ==
LOC: RAD 14:09
PROVIDERS: PCP Nurse Practitioner Family; Visit Provider Nurse Practitioner Family
DX: M79.662 Pain in left lower leg (principal); M79.89 Other specified soft tissue disorders; Z86.718 Personal history of other venous thrombosis and embolism
CPT/HCPCS: 80053; 80061; 83036; 84443; 85025; 93971

== ENCOUNTER 2023-04-08 09:46 | Outpatient (CLI) | payer OTHER, SELFPAY ==
[2023-04-08] MEDS: iohexol 350 mg/mL 500 mL Btl (per mL) IV (10:11)
--- NOTE | 2023-04-08 10:30 | CT_ITS ---
WS: [id number] CTA CHEST FOLLOWED BY ABDOMEN PELVIS TECHNIQUE: Contrast-enhanced CTA of the chest followed by abdomen and pelvis with coronal and sagitta l reformatted images. CLINICAL INFORMATION: Surveillance COMPARISON: CTA February 22, [address] abdomen pelvis November 30, 2022 DLP: 1916.[address] scans at [facility] use at least one of these dose optimization techniques: automated e xposure control; mA and/or kV adjustment per patient size (includes targeted exams where dose is matc hed to clinical indication); or iterative reconstruction. FINDINGS:Lungs are well aerated. No acute pulmonary infiltrates. No focal pneumonia or pleural fluid. No mediastinal or hilar lymphadenopathy. Proximal main pulmonary arteries are normal. Normal segment al and subsegmental pulmonary arteries. No evidence of pulmonary embolus. Hypertrophic changes thorac ic spine. Prior LEFT nephrectomy. Mild diffuse fatty infiltration liver. Cholecystectomy clips. Normal GE junct ion. Normal caliber abdominal aorta. No evidence of small or large bowel obstruction. Normal appendix in the RIGHT lower quadrant. Normal pancreas. Normal portal vein and splenic vein. Normal caliber ab dominal aorta. Adrenal glands are normal. Small RIGHT renal cyst. Small RIGHT UPJ calculus is unchanged measuring [address]/CT angio chest PE protcl [id number] IMPRESSION: 1. Previously described pulmonary emboli have resolved. 2. Lungs are well aerated. No acute pulmonary infiltrates today. 3. Hepatomegaly with diffuse fatty infiltration liver. Cholecystectomy. 4. Prior LEFT nephrectomy. Normal LEFT renal nephrectomy bed. 5. No abdominal or pelvic lymphadenopathy. 6. Stable RIGHT UPJ calculus measuring 6 mm unchanged. Minimal dilatation of t he RIGHT renal collecting system. No significant hydronephrosis. 7. No other suspicious findings.
--- NOTE | 2023-04-08 10:30 | CT_ITS ---
WS: [id number] CTA CHEST FOLLOWED BY ABDOMEN PELVIS TECHNIQUE: Contrast-enhanced CTA of the chest followed by abdomen and pelvis with coronal and sagitta l reformatted images. CLINICAL INFORMATION: Surveillance COMPARISON: CTA February 22, [address] abdomen pelvis November 30, 2022 DLP: 1916.[address] scans at [facility] use at least one of these dose optimization techniques: automated e xposure control; mA and/or kV adjustment per patient size (includes targeted exams where dose is matc hed to clinical indication); or iterative reconstruction. FINDINGS:Lungs are well aerated. No acute pulmonary infiltrates. No focal pneumonia or pleural fluid. No mediastinal or hilar lymphadenopathy. Proximal main pulmonary arteries are normal. Normal segment al and subsegmental pulmonary arteries. No evidence of pulmonary embolus. Hypertrophic changes thorac ic spine. Prior LEFT nephrectomy. Mild diffuse fatty infiltration liver. Cholecystectomy clips. Normal GE junct ion. Normal caliber abdominal aorta. No evidence of small or large bowel obstruction. Normal appendix in the RIGHT lower quadrant. Normal pancreas. Normal portal vein and splenic vein. Normal caliber ab dominal aorta. Adrenal glands are normal. Small RIGHT renal cyst. Small RIGHT UPJ calculus is unchanged measuring [address]/CT abdomen pelvis w con* [id number] IMPRESSION: 1. Previously described pulmonary emboli have resolved. 2. Lungs are well aerated. No acute pulmonary infiltrates today. 3. Hepatomegaly with diffuse fatty infiltration liver. Cholecystectomy. 4. Prior LEFT nephrectomy. Normal LEFT renal nephrectomy bed. 5. No abdominal or pelvic lymphadenopathy. 6. Stable RIGHT UPJ calculus measuring 6 mm unchanged. Minimal dilatation of t he RIGHT renal collecting system. No significant hydronephrosis. 7. No other suspicious findings.
== END 2023-04-08 09:47 | disposition home or self-care (01) ==
LOC: RAD 09:48
PROVIDERS: PCP Nurse Practitioner Family; Visit Provider Internal Medicine Medical Oncology
DX: C64.9 Malignant neoplasm of unspecified kidney, except renal pelvis (principal); I26.99 Other pulmonary embolism without acute cor pulmonale; R16.0 Hepatomegaly, not elsewhere classified; Z90.49 Acquired absence of other specified parts of digestive tract
CPT/HCPCS: 71275; 74177; Q9967

== ENCOUNTER 2023-04-18 10:09 | Oncology outpatient (recurring) (ONCR) | payer OTHER, SELFPAY | END 2023-04-27 23:59 | disposition home or self-care (01) | LOC: ONCMED 10:10 | PROVIDERS: PCP Nurse Practitioner Family; Visit Provider Internal Medicine Medical Oncology | DX: Z53.9 Procedure and treatment not carried out, unspecified reason (principal) ==

== ENCOUNTER 2023-04-27 13:27 | Outpatient (CLI) | payer OTHER, SELFPAY ==
--- NOTE | 2023-04-27 13:43 | XR_ITS ---
WS: [id number] Exam: XR KUB [id number] Date/Time of Exam: 04/27/2023 1:45 PM Reason For Exam: STONE Comparison 03/07/2023. No bowel obstruction or free air. 6 mm calcification superimposes the right kid lucien and apparently represents a known renal calculi. No sign of organ enlargement. Regional bony [place] ents are intact. Surgical clips in the left abdomen. XR/XR KUB [id number] IMPRESSION: 1. 6 mm calcification superimposing the lower pole the right kidney apparently representing a known stone. 2. No acute abdominal process.
== END 2023-04-27 13:28 | disposition home or self-care (01) ==
PROVIDERS: PCP Nurse Practitioner Family; Visit Provider Urology
DX: N20.0 Calculus of kidney (principal)
CPT/HCPCS: 74018; 81003

== ENCOUNTER 2023-05-02 06:29 | Day surgery (SDC) | payer OTHER, SELFPAY ==
--- NOTE | 2023-04-29 12:30 | P.ANESASSM_ITS ---
Pre-Anesthetic Assessment Height/Weight: Height 1.8 m Operation Date: 05/02/23 13:30 Proposed Procedures p Cystoscopy, Right: ureteral stent, Extracorporeal shock wave lithotripsy, 30212, 43964, N20.0(Right) - Jose Alejandro Alvarado MD s Ureteral Stent Placement(Right) - Jose Alejandro Alvarado MD s []CYSTOSCOPY, RIGHT: URETERAL STENT ,EXTRACORPOREAL SHOCKWAVE LITHOTRIPSY , N20.0(Right) - Jose Alejandro Alvarado MD Familial anesthetic complications: none Was Beta Huy taken within 24 hours: N/A Was Clonidine taken within 24 hours: N/A Last intake: > 8hrs Social No alcohol and No tobacco former smoker Exam alert, oriented x 3, clear to auscultation bilaterally and regular rate & rhythm Airway Mallampati: Class IV Dentition: other (missing) CV/HEM Hx unprovoked PE on anticoagulation, resolved on CT in March. Will be holding anticoagulation for surgery hx RCC s/pt nephrectomy Metabolic Diabetes Mellitus and Morbid Obesity Anesthetic Plan ASA status: 3 Anesthesia: General Risk of > 500 ml blood loss (7ml/kg in children): No Medications/Allergies Home Medications Medication Instructions Recorded Confirmed Last Taken Type blood sugar diagnostic (Blood #100 ea 03/05/22 04/27/23 Unknown Rx Glucose Test strips) blood-glucose meter #1 ea 03/05/22 04/27/23 Unknown Rx lancets 31 gauge #100 ea 03/05/22 04/27/23 Unknown Rx glipizide 10 mg tablet 10 mg PO DAILY #30 tabs 02/14/23 05/02/23 05/01/23 Rx lisinopril 30 mg tablet 30 mg PO DAILY #30 tabs 02/14/23 05/02/23 04/30/23 Rx pantoprazole 40 mg tablet,delayed 40 mg PO DAILY #30 tabs 02/14/23 05/02/23 02/22/23 Rx release (Protonix) rivaroxaban 20 mg tablet (Xarelto) 20 mg PO DAILY #30 tabs 03/10/23 05/02/23 04/25/23 Rx divalproex 500 mg tablet,extended 500 mg PO BEDTIME #30 tabs 03/18/23 05/02/23 04/25/23 Rx release 24 hr (Depakote ER) olanzapine 10 mg disintegrating 10 mg PO DAILY PRN anger #30 tabs 03/18/23 05/02/23 Unknown Rx tablet risperidone 0.5 mg tablet 0.5 mg PO BID #60 tabs 03/18/23 05/02/23 Unknown Rx Allergies Allergy/AdvReac Type Severity Reaction Status Date / Time No Known Allergies Allergy Verified 04/27/23 14:02 [facility] Anesthesia Medical History Bilateral pulmonary embolism GERD (gastroesophageal reflux disease) History of nephrolithiasis Hx of renal cell cancer Hypertension Intermittent explosive disorder Psychiatric care Type 2 diabetes mellitus Surgical History History of left radical nephrectomy (2013) Hx of cholecystectomy (2011) Family History Mother , AT AGE 41 Cancer BREAST Father No problems noted. Social History Smoking and tobacco status: former smoker Quit status (tobacco): has quit using tobacco Year quit tobacco: 2021 Former quit date comment: smoked x15 years Second hand smoke exposure: Yes (At work.) Smoking risk assessment/counseling performed?: No Alcohol intake: former Desire information about alcohol rehabilitation?: No Counseling given: No Substance/Drug Use: former Desire information about substance/drug rehabilitation?: No Counseling given: No Adopted: No Caregiver/support person: No Lives independently: Yes Household members: family Housing: House Marital status: Number of children: 1 Highest education level completed: GED or Equivalent service: No Current occupational status: employed Data Anesthesia Cardiac Studies: No Data to Display
[2023-04-29 13:37] VITALS: BMI 40.3
[2023-05-02] VITALS (10 sets, daily range): BP systolic 105–154; BP diastolic 50–83; PULSE 46–70; RESP 15–18; TEMP 36.1–36.7; O2SAT 94–99
--- NOTE | 2023-05-02 05:09 | W.PM.OPSUD ---
Surgery/Procedure H&P Update DATE OF PROCEDURE: May 02, 2023 DATE H&P PERFORMED: 04/27/23 H&P UPDATE INFORMATION: I have reviewed H&P completed within last 30 days, I have examined patient prior to procedure, No changes to prior documentation and H&P is in [facility] EMR on date indicated PLANNED PROCEDURE: Operation Date: 05/02/23 08:20 Proposed Procedures p Cystoscopy, Right: ureteral stent, Extracorporeal shock wave lithotripsy, 04473, 09985, N20.0(Right) - Jose Alejandro Alvarado MD s Ureteral Stent Placement(Right) - Jose Alejandro Alvarado MD s []CYSTOSCOPY, RIGHT: URETERAL STENT ,EXTRACORPOREAL SHOCKWAVE LITHOTRIPSY , N20.0(Right) - Jose Alejandro Alvarado MD
--- NOTE | 2023-05-02 06:27 | XRR_ITS ---
PROCEDURE INFORMATION: Exam: XR Abdomen Exam date and time: 05/02/2023 6:48 AM Age: 37 years old Clinical indication: Screening exam; Other: Preop eswl; Additional info: Right proximal ureteral stone, preop eswl TECHNIQUE: Imaging protocol: Radiologic exam of the abdomen. Views: Frontal supine view of the abdomen. 1 View. COMPARISON: CR XR KUB [id number] 04/27/2023 1:45 PM FINDINGS: Tubes, catheters and devices: Left-sided surgical clips. Gastrointestinal tract: Mild bowel dilatation and prominent stool. Intraperitoneal space: Incomplete visualization of the superior and lateral abdomen. Organs: Right-sided urolithiasis including 8 mm calculus overlying the lower pole the right kidney. Bones/joints: Unremarkable. Soft tissues: Panniculus and skin fold. XR/XR KUB [id number] IMPRESSION: 1. Right-sided urolithiasis including 8 mm calculus overlying the lower pole the right kidney. 2. Additional findings as described above.
[2023-05-02] MEDS: sodium chloride 0.9% 1,000 ML 30 ML IV (07:22)
[2023-05-02 07:26] LABS: Glucose Point of Care 112 mg/dL (70-110)
[2023-05-02 07:37] LABS: Basophils # 0.1 10^3/uL (0.0-0.1); Basophils % 1.2 %; Eosinophils # 0.3 10^3/uL (0.0-0.8); Eosinophils % 4.1 %; Hematocrit 42.2 % (42.0-52.0); Hemoglobin 14.3 g/dL (11.7-16.6); Lymphocytes # 2.4 10^3/uL (0.8-4.8); Lymphocytes % 33.2 %; Mean Corpuscular HGB Conc 33.9 g/dL (30.0-36.0); Mean Corpuscular Hemoglobin 30.2 pg (28.0-34.0); Mean Corpuscular Volume 89.2 fl (80-94); Mean Platelet Volume 9.4 fL (7.4-10.4); Monocytes # 0.6 10^3/uL (0.2-0.9); Monocytes % 7.7 %; Neutrophils # 3.89 10^3/uL (1.8-7.7); Neutrophils % 53.7 %; Nucleated Red Blood Cells % 0 %; Platelet Count 275 10^3/cmm (130-400); Red Blood Count 4.73 10^6/uL (4.1-5.3); Red Cell Distribution Width 12.3 % (12.1-15.1); White Blood Count 7.3 10^3/uL (4.0-10.0)
[2023-05-02 07:52] LABS: Alanine Aminotransferase 23 U/L (0-41); Albumin Level 4.4 g/dL (3.5-5.2); Alkaline Phosphatase 96 U/L (40-130); Anion Gap 14.4 (5-19); Aspartate Amino Transferase 19 U/L (0-40); Blood Urea Nitrogen 13 mg/dL (6-20); Calcium 9.3 mg/dL (8.5-10.5); Carbon Dioxide 23 mmol/L (22-29); Chloride 102 mmol/L (98-107); Glomerular Filtration Rate 108.8 mL/min (90-130); Glucose 110 mg/dL (65-115); Osmolality Calculated 281 mOsm/kg (285-295); Potassium 4.4 mmol/L (3.5-5.1); Sodium 135 mmol/L (136-145); Total Bilirubin 0.3 mg/dL (0.15-1.2); Total Protein 7.4 g/dL (6.6-8.7)
--- NOTE | 2023-05-02 08:07 | P.OP_ITS ---
Operative Report Date of procedure: May 02, 2023 Pre-op diagnosis: Right renal calculus, solitary kidney Post-op diagnosis: Same Procedure done: 1. Cystoscopy, RIGHT ureteral stent placement 2. Right renal extracorporeal shockwave lithotripsy Implants: 1. RIGHT ureteral stent (6 [place] by 30 cm) Specimens removed/disposition: None Pathology: None Estimated blood loss: None Urine output: Not measured Complications: None Findings: Anesthesia: General Condition: Stable Disposition: PACU Intraoperative findings: * Excellent change to right renal calculus with 2000 shocks Brief History: Tito is a very pleasant 37-year-old white male with a history of left nephrectomy previously unrelated to stones. Presented with a right UPJ stone with mild obstructive changes. There was a delay in treatment of the stone due to recent PE and required anticoagulation. He has done well from that perspective and has been holding his anticoagulation is back now for cystoscopy, stent placement, right extracorporeal shockwave lithotripsy to renal stone. Procedure: After routine preoperative evaluation examination and obtaining of informed consent he was taken to the operating suite on 05/02/2023 where general anesthesia was administered without difficulty after appropriate timeout was performed, SCDs confirmed to be functioning, preoperative antibiotics administered, beta- missy protocol confirmed. Prepped and draped in usual sterile fashion in dorsolithotomy position paying careful attention to avoiding pressure points. 21 [place] cystoscope with 30 degree lens was introduced into urethra meatus and advanced into the bladder without difficulty. The bladder was systematically examined and found to be within normal limits. No stone. A flexible tip guidewire was then advanced up the right ureter without difficulty curling in the area of the renal pelvis/upper pole calyx. A 6 [place] by 30 cm double-pigtail stent was advanced over the guidewire through the cystoscope into appropriate position as confirmed via fluoroscopy and cystoscopy. Stent was confirmed to be working. The bladder was drained. The cystoscopic portion of the procedure was completed. He was then repositioned in supine position on the Dornier unit such that the stone was located at the focal point utilizing biplanar fluoroscopy. Stone was easily identified. Shock head was positioned posteriorly. Treatment was initiated with an intensity of 1 and slowly advanced and intensity of 4. Rate was initially at 60. After about 300 shocks a several minute pause was conducted. Excellent change noted 2000 shocks administered with no problems. Did very well. Awakened in the operating room and returned recovery in stable condition We will follow-up in about a week for KUB and likely stent removal
[2023-05-02] MEDS: levofloxacin-dextrose 5 % 500 MG/100 ML PREMIX 100 MG IV (08:13)
--- NOTE | 2023-05-02 13:27 | ANE.PACU2 ---
Inpatient post-anesthesia follow up: Airway intact: Yes Vital signs: Temperature 98.0 F Pulse Rate 46 Respiratory Rate 18 Blood Pressure 115/62 Pulse Oximetry 97 Oxygen Delivery Me thod Room Air Oxygen Flow Rate 6 Fraction of Inspir ed Oxygen Hydration adequate: Yes Nausea and vomiting: Yes Pain level: 1 Mental status: Baseline
== END 2023-05-02 11:00 | disposition home or self-care (01) ==
PROVIDERS: PCP Nurse Practitioner Family; Visit Provider Urology
PROC: 0TJB8ZZ Inspection of Bladder, Via Natural or Artificial Opening Endoscopic (ICD-10-PCS; CPT 52000; principal; 2023-05-02 08:10)
PROC: (CPT 50605; 2023-05-02 08:10)
PROC: (CPT 50590; 2023-05-02 08:10)
DX: N20.0 Calculus of kidney (principal); Z86.711 Personal history of pulmonary embolism; Z79.01 Long term (current) use of anticoagulants; E11.9 Type 2 diabetes mellitus without complications; E66.01 Morbid (severe) obesity due to excess calories; Z68.41 Body mass index [BMI] 40.0-44.9, adult; Z79.84 Long term (current) use of oral hypoglycemic drugs; Z85.528 Personal history of other malignant neoplasm of kidney; Z90.5 Acquired absence of kidney; Z87.891 Personal history of nicotine dependence
CPT/HCPCS: 50590; 52332; 36415; 36416; 74018; 80053; 82962; 85025; C2625; J0131; J1100; J1170; J1956; J2250; J2370; J2405; J2704; J2710; J3010; J3490; J7030

== ENCOUNTER 2023-05-10 08:49 | Outpatient (CLI) | payer OTHER, SELFPAY | END 2023-05-10 08:50 | disposition home or self-care (01) | PROVIDERS: PCP Nurse Practitioner Family; Visit Provider Urology | DX: N20.0 Calculus of kidney (principal); Z96.0 Presence of urogenital implants | CPT/HCPCS: 74018; 81003 ==

== ENCOUNTER 2023-06-23 18:05 | Emergency (ER) | payer OTHER, SELFPAY ==
[2023-06-23 18:10] VITALS: BP 157/93; PULSE 81; RESP 18; TEMP 36.7; O2SAT 97
--- NOTE | 2023-06-23 18:31 | XRR_ITS ---
PROCEDURE INFORMATION: Exam: XR Chest Exam date and time: 06/23/2023 6:34 PM Age: 38 years old Clinical indication: Pain; Chest pressure; Additional info: Chest pain TECHNIQUE: Imaging protocol: Radiologic exam of the chest. Views: 2 views. COMPARISON: CR XR chest 1V portable [id number] 02/22/2023 8:11 AM FINDINGS: Lungs: Slight increased reticular markings right middle lobe with today's exam and consider minimal infiltrate. No consolidation. Pleural spaces: Unremarkable. No pleural effusion. No pneumothorax. Heart/Mediastinum: Unremarkable. No cardiomegaly. Bones/joints: Visualized osseous structures show no acute abnormality. XR/XR chest 2V* [id number] IMPRESSION: 1. Slight increased reticular markings right middle lobe and consider minimal infiltrate. 2. No acute findings, otherwise.
--- NOTE | 2023-06-23 18:32 | ECG_ITS ---
[facility] Test Date: 2023-06-23 Pat Name: Tito Mcgill Department: Room: Gender: Male Nurse Care Manager: CYNDI: 1985 Requested By: Patricia Alston Order Number: [id number] Diaz MD: Celso Murphy M.D. Measurements Intervals [place] Rate: 74 P: 53 IN: 209 QRS: 14 QRSD: 92 T: 32 QT: 363 QTc: 403 Interpretive Statements SINUS RHYTHM MINIMAL VOLTAGE CRITERIA FOR LVH, CONSIDER NORMAL VARIANT [MEETS CRITERIA IN ONE OF: R(aVL), S(V1), R(V5), R(V5/V6)+S(V1)] Compared to ECG 02/22/2023 10:06:33 Sinus bradycardia no longer present Sinus arrhythmia no longer present Electronically Signed On 06-23-2023 23:37:50 CDT by Celso Murphy M.D. [id number]
[2023-06-23 19:18] LABS: Basophils # 0.1 10^3/uL (0.0-0.1); Basophils % 1.3 %; Eosinophils # 0.4 10^3/uL (0.0-0.8); Eosinophils % 4.2 %; Hematocrit 40.9 % (42.0-52.0); Hemoglobin 14.1 g/dL (11.7-16.6); Lymphocytes # 2.7 10^3/uL (0.8-4.8); Lymphocytes % 33.1 %; Mean Corpuscular HGB Conc 34.5 g/dL (30.0-36.0); Mean Corpuscular Hemoglobin 30.8 pg (28.0-34.0); Mean Corpuscular Volume 89.3 fl (80-94); Mean Platelet Volume 9.3 fL (7.4-10.4); Monocytes # 0.5 10^3/uL (0.2-0.9); Monocytes % 6.5 %; Neutrophils # 4.52 10^3/uL (1.8-7.7); Neutrophils % 54.8 %; Nucleated Red Blood Cells % 0 %; Platelet Count 337 10^3/cmm (130-400); Red Blood Count 4.58 10^6/uL (4.1-5.3); Red Cell Distribution Width 12.6 % (12.1-15.1); White Blood Count 8.3 10^3/uL (4.0-10.0)
[2023-06-23 19:31] LABS: INR 1.31 (0.8-1.2)
[2023-06-23 19:32] LABS: Partial Thromboplastin Time 29.8 SECONDS (23.9-36.7)
--- NOTE | 2023-06-23 19:41 | W.ED.CHESTPA ---
HPI - Chest Pain General: Chief Complaint: Chest Pain Stated Complaint: Pain in Rt Ling Time Seen by Provider: 06/23/23 19:26 History of Present Illness: Patient presents ER with complaints of intermittent sharp stabbing chest pain on the right side when he takes a big deep breath. If patient not taking big deep breath there is no pain. Patient states he just recently had a PE on the left side which felt similar. Patient sees Dr. Pisano. Patient is currently on Xarelto and has not missed any doses. Patient says Dr. Pisano told him to come here to get it checked out. Review of Systems General: Reports: 10 or more systems reviewed and unremarkable except in HPI and below PFSH ED PFSH: Medical History Bilateral pulmonary embolism GERD (gastroesophageal reflux disease) History of nephrolithiasis Hx of renal cell cancer Hypertension Intermittent explosive disorder Psychiatric care Type 2 diabetes mellitus Surgical History History of left radical nephrectomy (2013) History of lithotripsy Hx of cholecystectomy (2011) Family History Mother , AT AGE 41 Cancer BREAST Father No problems noted. Social History Smoking and tobacco status: former smoker Quit status (tobacco): has quit using tobacco Year quit tobacco: 2021 Former quit date comment: smoked x15 years Second hand smoke exposure: Yes (At work.) Smoking risk assessment/counseling performed?: No Alcohol intake: former Desire information about alcohol rehabilitation?: No Counseling given: No Substance/Drug Use: former Desire information about substance/drug rehabilitation?: No Counseling given: No Adopted: No Caregiver/support person: No Lives independently: Yes Household members: family Housing: House Marital status: Number of children: 1 Highest education level completed: GED or Equivalent service: No Current occupational status: employed Physical Exam Const: COMMON NORMALS: no acute distress, average body habitus, patient oriented x3, no limitations, healthy appearing, alert and well nourished HENMT: COMMON NORMALS: normocephalic, hearing grossly normal bilaterally, external ears normal, Normal external nose present and moist oral mucous membranes HEAD & SCALP: normocephalic NOSE: Normal external nose present EXTERNAL EAR: Yes external ears normal Neck/C-Spine: COMMON NORMALS: full ROM, no lymphadenopathy, supple, no meningeal signs, no JVD and Thyroid normal THYROID: Thyroid normal Chest: COMMONS NORMALS: normal inspection of the chest and normal palpation of entire chest wall Resp: COMMON NORMALS: normal respiratory effort, No retractions, No use of accessory muscles and clear to auscultation bilaterally AUSCULTATION: clear to auscultation bilaterally Cardio: COMMON NORMALS: no JVD, regular rate, regular rhythm, S1 normal heart sound present, S2 normal heart sound present, No gallops present (Cardio), No clicks present (Cardio), No murmurs present (Cardio) and No rub (Cardio) RATE: regular rate RHYTHM: regular rhythm HEART SOUNDS: S1 normal heart sound present and S2 normal heart sound present GI: COMMON NORMALS: Normal to inspection, nondistended, normoactive bowel sounds present, Soft to palpation, non-tender, No hepatosplenomegaly present and no masses PALPATION: Yes Soft to palpation and Yes No hepatosplenomegaly present : COMMON NORMALS: Yes no CVA tenderness BLADDER/KIDNEY EXAM: Yes no CVA tenderness Back/Pelvis: COMMON NORMALS: no CVA tenderness Neuro: COMMON NORMALS: patient oriented x3 SENSORIUM/ORIENTATION: Yes alert MENINGEAL SIGNS: Yes no meningeal signs Course Vital Signs: Vital signs: Vital Signs Temperature 98.1 F 06/23/23 18:10 Pulse Rate 81 06/23/23 18:10 Respiratory Rate 18 06/23/23 18:10 Blood Pressure 157/93 06/23/23 18:10 Pulse Oximetry 97 06/23/23 18:10 Oxygen Delivery Me thod Room Air 06/23/23 18:10 MDM - Chest Pain Medical Decision Making Presented to the ER with right-sided pleuritic type chest pain. Patient does have a history of a DVT but is on Xarelto. Dr. Pisano told him to come here to be checked out. Serial EKGs along with chest x-ray and lab work was essentially negative. Patient's D-dimer is negative. Patient is currently on Eliquis so a new clot would be unlikely. Patient will be discharged with diagnosis of pleuritic type chest pain and will be instructed to follow-up with his PCP within the next week. Differential Diagnosis Unlikely acute massive pulmonary embolism, acute respiratory failure, acute myocardial infarction, cardiac arrest or sudden cardiac Medical Records I reviewed the patient's medical records. Lab Data I reviewed the patient's lab results. 06/23/23 18:49 06/23/23 18:49 Radiology Impressions Chest X-Ray 06/23/23 18:31 IMPRESSION: 1. Slight increased reticular markings right middle lobe and consider minimal infiltrate. 2. No acute findings, otherwise. Laboratory Results WBC 8.3 10^3/uL (4.0-10.0) 06/23/23 18:49 RBC 4.58 10^6/uL (4.1-5.3) 06/23/23 18:49 Hgb 14.1 g/dL (11.7-16.6) 06/23/23 18:49 Hct 40.9 % (42.0-52.0) L 06/23/23 18:49 MCV 89.3 fl (80-94) 06/23/23 18:49 MCH 30.8 pg (28.0-34.0) 06/23/23 18:49 MCHC 34.5 g/dL (30.0-36.0) 06/23/23 18:49 RDW 12.6 % (12.1-15.1) 06/23/23 18:49 Plt Count 337 10^3/cmm (130-400) 06/23/23 18:49 MPV 9.3 fL (7.4-10.4) 06/23/23 18:49 Neut % (Auto) 54.8 % 06/23/23 18:49 Lymph % (Auto) 33.1 % 06/23/23 18:49 [place] % (Auto) 6.5 % 06/23/23 18:49 Eos % (Auto) 4.2 % 06/23/23 18:49 Baso % (Auto) 1.3 % 06/23/23 18:49 Neut # (Auto) 4.52 10^3/uL (1.8-7.7) 06/23/23 18:49 Lymph # (Auto) 2.7 10^3/uL (0.8-4.8) 06/23/23 18:49 [place] # (Auto) 0.5 10^3/uL (0.2-0.9) 06/23/23 18:49 Eos # (Auto) 0.4 10^3/uL (0.0-0.8) 06/23/23 18:49 Baso # (Auto) 0.1 10^3/uL (0.0-0.1) 06/23/23 18:49 Nucleated RBC % (auto) 0 % 06/23/23 18:49 Nucleated RBCs # 0.0 /100WBC 06/23/23 18:49 PT 16.70 SECONDS (12.1-14.9) H 06/23/23 18:49 INR 1.31 (0.8-1.2) H 06/23/23 18:49 APTT 29.8 SECONDS (23.9-36.7) 06/23/23 18:49 D-Dimer 0.28 ug/mIFEU (0-0.59) 06/23/23 18:49 Sodium 138 mmol/L (136-145) 06/23/23 18:49 Potassium 4.0 mmol/L (3.5-5.1) 06/23/23 18:49 Chloride 101 mmol/L (98-107) 06/23/23 18:49 Carbon Dioxide 24 mmol/L (22-29) 06/23/23 18:49 Anion Gap 17.0 (5-19) 06/23/23 18:49 BUN 16 mg/dL (6-20) 06/23/23 18:49 Creatinine 1.1 mg/dL (0.7-1.2) 06/23/23 18:49 GFR Calculation 74.9 mL/min (90-130) L 06/23/23 18:49 Glucose 106 mg/dL (65-115) 06/23/23 18:49 Calculated Osmolality 288 mOsm/kg (285-295) 06/23/23 18:49 Calcium 9.8 mg/dL (8.5-10.5) 06/23/23 18:49 Total Bilirubin 0.2 mg/dL (0.15-1.2) 06/23/23 18:49 AST 21 U/L (0-40) 06/23/23 18:49 ALT 25 U/L (0-41) 06/23/23 18:49 Alkaline Phosphatase 113 U/L (40-130) 06/23/23 18:49 Troponin T Baseline 12 ng/L (0-15) 06/23/23 18:49 Total Protein 7.3 g/dL (6.6-8.7) 06/23/23 18:49 Albumin 4.5 g/dL (3.5-5.2) 06/23/23 18:49 Globulin 2.8 g/dL (1.3-4.6) 06/23/23 18:49 EKG Data EKG 1: I personally reviewed and interpreted this EKG as follows: EKG interpretation date: 06/23/23 EKG interpretation time: 19:27 Prior EKG tracings: not available for review Interpretation: EKG shows normal sinus rhythm with a ventricular rate of 74 bpm, AR interval 209, QRS duration 92, QTc of 390, ST-T wave changes Discharge Plan Discharge Patient Disposition: Home Clinical Impression: Atypical chest pain Condition: Stable Prescriptions: No Action (DME) blood-glucose meter Misc See Rx Instructions .Route Qty: 1 0RF Rx Instructions: As directed (DME) Blood Glucose Test Strip See Rx Instructions .Route Qty: 100 3RF Rx Instructions: once daily (DME) lancets 31 gauge misc See Rx Instructions .Route Qty: 100 3RF Rx Instructions: once daily pantoprazole [Protonix] 40 mg tablet,delayed release (DR/EC) 40 mg PO DAILY Qty: 30 2RF glipizide 10 mg tablet 10 mg PO DAILY Qty: 30 2RF lisinopril 30 mg tablet 30 mg PO DAILY Qty: 30 2RF Depakote ER 500 mg tablet extended release 24 hr 500 mg PO BEDTIME Qty: 30 2RF risperidone 0.5 mg tablet 0.5 mg PO BID Qty: 60 2RF olanzapine 10 mg tablet,disintegrating 10 mg PO DAILY PRN (Reason: anger) Qty: 30 0RF azithromycin [Zithromax] 250 mg tablet See Rx Instructions PO .COMPLEX Qty: 6 0RF Rx Instructions: For 250 mg dose pack: take 500 mg today (day 1), then 250 mg for 4 days (days 2-5) PO benzonatate 200 mg capsule 200 mg PO BID PRN (Reason: cough) Qty: 20 0RF Xarelto 20 mg tablet 20 mg PO DAILY Qty: 30 3RF Hold Instructions: Resume on 05/04/23. Rx Instructions: must administer with evening meal Discharge Orders: Discharge ED (Routine); Ordered 06/23/23 Ordered By: Tayo Powell Referrals: Thaddeus Pisano MD [Primary Care Provider] - Patient Instructions: Chest Pain - Noncardiac Activity Restrictions/Additional Instructions: Please follow-up with your primary care practitioner in the next week or sooner as needed Please return to the ER if this pain or shortness of breath worsens. Coding Level of Care Code ED Wrapper Layer And Examiner Soft Work for Fabian Colón
[2023-06-23 19:44] LABS: Troponin(5th) Baseline 12 ng/L (0-15)
[2023-06-23 19:59] LABS: Alanine Aminotransferase 25 U/L (0-41); Albumin Level 4.5 g/dL (3.5-5.2); Alkaline Phosphatase 113 U/L (40-130); Aspartate Amino Transferase 21 U/L (0-40); Blood Urea Nitrogen 16 mg/dL (6-20); Calcium 9.8 mg/dL (8.5-10.5); Carbon Dioxide 24 mmol/L (22-29); Chloride 101 mmol/L (98-107); Globulin 2.8 g/dL (1.3-4.6); Glomerular Filtration Rate 74.9 mL/min (90-130); Glucose 106 mg/dL (65-115); Osmolality Calculated 288 mOsm/kg (285-295); Sodium 138 mmol/L (136-145); Total Bilirubin 0.2 mg/dL (0.15-1.2); Total Protein 7.3 g/dL (6.6-8.7)
[2023-06-23 20:00] LABS: D Dimer 0.28 ug/mIFEU (0-0.59)
== END 2023-06-23 20:28 | disposition home or self-care (01) ==
PROVIDERS: Nurse Practitioner Family; Emergency Provider Emergency Medicine; PCP Internal Medicine Medical Oncology
DX: R07.89 Other chest pain (principal); Z79.84 Long term (current) use of oral hypoglycemic drugs; Z87.891 Personal history of nicotine dependence; Z85.528 Personal history of other malignant neoplasm of kidney; I10 Essential (primary) hypertension; E11.9 Type 2 diabetes mellitus without complications
CPT/HCPCS: 36415; 71046; 80053; 84484; 85025; 85378; 85610; 85730; 93005; 99285

== ENCOUNTER 2023-08-17 05:42 | Emergency (ER) | payer OTHER, SELFPAY ==
[2023-08-17 05:46] VITALS: BP 181/100; PULSE 77; RESP 20; TEMP 36.6; O2SAT 98; BMI 39.9
--- NOTE | 2023-08-17 05:54 | XRR_ITS ---
PROCEDURE INFORMATION: Exam: XR Chest Exam date and time: 08/17/2023 6:26 AM Age: 38 years old Clinical indication: Pain; Chest pressure; Patient HX: Prev h/o of pe; Additional info: SOB TECHNIQUE: Imaging protocol: Radiologic exam of the chest. Views: 1 view. COMPARISON: CT angio chest PE protcl [id number] 08/17/2023 6:22 AM FINDINGS: Lungs: Unremarkable. No consolidation. Pleural spaces: Unremarkable. No pleural effusion. No pneumothorax. Heart/Mediastinum: Unremarkable. No cardiomegaly. Bones/joints: Unremarkable. XR/XR chest 1V portable [id number] IMPRESSION: No acute findings.
--- NOTE | 2023-08-17 05:54 | CTR_ITS ---
PROCEDURE INFORMATION: Exam: CTA Chest With Contrast Exam date and time: 08/17/2023 6:22 AM Age: 38 years old Clinical indication: Cough and dyspnea; Additional info: SOB TECHNIQUE: Imaging protocol: Computed tomographic angiography of the chest with contrast. Exam focused on the arteries. 3D rendering (Not supervised by radiologist): MIP and/or 3D reconstructed images were created by the technologist. Radiation optimization: All CT scans at this facility use at least one of these dose optimization techniques: automated exposure control; mA and/or kV adjustment per patient size (includes targeted exams where dose is matched to clinical indication); or iterative reconstruction. Contrast material: OMNI 350; Contrast volume: 100 ml; Contrast route: INTRAVENOUS (IV); REPORTING DATA: Count of CT and Cardiac NM exams in prior 12 months: This patient has received 4 known CTs and 0 known cardiac nuclear medicine studies in the 12 months prior to the current study. COMPARISON: CT angio chest PE protcl [id number] 04/08/2023 9:57 AM RADIATION DOSE METRICS: Total DLP (mGy-cm): 676.81 FINDINGS: Pulmonary arteries: Normal. No pulmonary emboli. Aorta: Unremarkable. No aortic aneurysm. No aortic dissection. Thyroid: Symmetric, unremarkable thyroid lobes. Lungs: Unremarkable. No consolidation. No masses. Pleural spaces: Unremarkable. No pneumothorax. No pleural effusion. Heart: Unremarkable. No cardiomegaly. No pericardial effusion. Mediastinal space: Unremarkable thoracic esophagus. Lymph nodes: Unremarkable. No enlarged lymph nodes. Gallbladder and bile ducts: Cholecystectomy. Nondilated biliary system. Kidneys and ureters: Left nephrectomy. Bones/joints: Unremarkable. No acute fracture. Soft tissues: Unremarkable. CT/CT angio chest PE protcl [id number] IMPRESSION: Negative CTA chest. No acute pathology identified.
--- NOTE | 2023-08-17 06:06 | ECG_ITS ---
[facility] Test Date: 2023-08-17 Pat Name: Tito Mcgill Department: Room: Gender: Male Director Service: : 1985 Requested By: Wilfrido Orozco Order Number: [id number] Emily MD: Marc Tapia M.D. Measurements Intervals [place] Rate: 73 P: 53 MN: 201 QRS: 14 QRSD: 81 T: 35 QT: 378 QTc: 418 Interpretive Statements SINUS RHYTHM Compared to ECG 06/23/2023 19:27:13 No significant changes Electronically Signed On 08-18-2023 7:58:46 CDT by Marc Tapia M.D. [id number] f
--- NOTE | 2023-08-17 06:07 | W.ED.SOB ---
HPI - SOB/Dyspnea General: Chief Complaint: Shortness of Breath/Dyspnea Stated Complaint: sharp pains in right side Time Seen by Provider: 08/17/23 05:51 Source: patient Mode of arrival: ambulatory Limitations: no limitations History of Present Illness: HPI Narrative: 30-year-old male had a history of a pulmonary embolism 6 months ago he states that overnight he started having a sharp pain in his right lung some mild dyspnea states it felt like his PE before he is on Xarelto he denies any fevers denies any cough his pulse ox here is normal. Associated symptoms: Reports chest pain; Deny abdominal pain, fever(s), nausea or vomiting Review of Systems Const: Denies: fever(s), chills, body aches or change in appetite Eyes: Denies: blurry vision or eye discomfort ENMT: Denies: throat pain or dental pain Card: Reports: chest pain Resp: Denies: dyspnea GI: Denies: abdominal pain, nausea, vomiting or diarrhea Musc: Denies: neck pain or back pain Skin/Breast: Denies: rash Neuro: Denies: headache(s) PFSH ED PFSH: Medical History Bilateral pulmonary embolism GERD (gastroesophageal reflux disease) History of nephrolithiasis Hx of renal cell cancer Hypertension Intermittent explosive disorder Psychiatric care Type 2 diabetes mellitus Surgical History History of left radical nephrectomy (2013) History of lithotripsy Hx of cholecystectomy (2011) Family History Mother , AT AGE 41 Cancer BREAST Father No problems noted. Social History Smoking and tobacco status: former smoker Quit status (tobacco): has quit using tobacco Year quit tobacco: 2021 Former quit date comment: smoked x15 years Second hand smoke exposure: Yes (At work.) Smoking risk assessment/counseling performed?: No Alcohol intake: former Desire information about alcohol rehabilitation?: No Counseling given: No Substance/Drug Use: former Desire information about substance/drug rehabilitation?: No Counseling given: No Adopted: No Caregiver/support person: No Lives independently: Yes Household members: family Housing: House Marital status: Number of children: 1 Highest education level completed: GED or Equivalent service: No Current occupational status: employed Physical Exam Const: COMMON NORMALS: no acute distress, patient oriented x3 and healthy appearing HENMT: COMMON NORMALS: normocephalic and atraumatic HEAD & SCALP: normocephalic and atraumatic Eye: COMMON NORMALS: Equal, round and reactive pupils present and EOMs intact bilaterally PUPIL: Yes Equal, round and reactive pupils present Neck/C-Spine: COMMON NORMALS: full ROM and supple Chest: COMMONS NORMALS: normal inspection of the chest and normal palpation of entire chest wall Resp: COMMON NORMALS: normal respiratory effort, No retractions, No use of accessory muscles and clear to auscultation bilaterally AUSCULTATION: clear to auscultation bilaterally Cardio: COMMON NORMALS: regular rate, regular rhythm and No murmurs present (Cardio) RATE: regular rate RHYTHM: regular rhythm GI: COMMON NORMALS: Normal to inspection, nondistended, normoactive bowel sounds present, Soft to palpation, non-tender and no masses PALPATION: Yes Soft to palpation Extremity: COMMON NORMALS: normal to inspection and full ROM Neuro: COMMON NORMALS: patient oriented x3, moves all extremities and no focal motor deficits Psych: COMMON NORMALS: mental status grossly normal, Normal thought process present and cooperative THOUGHT PROCESS: Normal thought process present Skin: COMMON NORMALS: no rashes or lesions noted and no wounds GENERAL SKIN EXAM: no rashes or lesions noted Course Vital Signs: Vital signs: Vital Signs Temperature 97.8 F 08/17/23 05:46 Pulse Rate 77 08/17/23 05:46 Respiratory Rate 20 H 08/17/23 05:46 Blood Pressure 181/100 08/17/23 05:46 Pulse Oximetry 98 08/17/23 05:46 Oxygen Delivery Me thod Room Air 08/17/23 05:46 MDM - SOB/Dyspnea Medical Decision Making pt presents here with right sided chest pain. Ct is normal labs show no acute abnormalities. He has no signs of acs. he is stable for discharge and is to follow up with his pcp and return if worsening. Medical Records I reviewed the patient's medical records. Lab Data I reviewed the patient's lab results. 08/17/23 05:56 08/17/23 05:56 Labs/Radiology: Radiology Impressions Chest CTA 08/17/23 05:54 IMPRESSION: Negative CTA chest. No acute pathology identified. Chest X-Ray 08/17/23 05:54 IMPRESSION: No acute findings. Laboratory Results WBC 8.85 10^3/uL (3.29-11.43) 08/17/23 05:56 RBC 4.68 10^6/uL (3.85-5.65) 08/17/23 05:56 Hgb 14.10 g/dL (11.27-16.99) 08/17/23 05:56 Hct 41.5 % (37-53) 08/17/23 05:56 MCV 88.7 fl (82-101) 08/17/23 05:56 MCH 30.1 pg (27-33) 08/17/23 05:56 MCHC 34.0 g/dL (30-55) 08/17/23 05:56 RDW 12.6 % (12.1-15.1) 08/17/23 05:56 Plt Count 345 10^3/cmm (157-399) 08/17/23 05:56 MPV 9.0 fL (7.4-10.4) 08/17/23 05:56 Neut % (Auto) 49.8 % 08/17/23 05:56 Lymph % (Auto) 34.7 % 08/17/23 05:56 [place] % (Auto) 8.0 % 08/17/23 05:56 Eos % (Auto) 6.2 % 08/17/23 05:56 Baso % (Auto) 1.1 % 08/17/23 05:56 Neut # (Auto) 4.40 10^3/uL (1.8-7.7) 08/17/23 05:56 Lymph # (Auto) 3.1 10^3/uL (0.8-4.8) 08/17/23 05:56 [place] # (Auto) 0.7 10^3/uL (0.2-0.9) 08/17/23 05:56 Eos # (Auto) 0.6 10^3/uL (0.0-0.8) 08/17/23 05:56 Baso # (Auto) 0.1 10^3/uL (0.0-0.1) 08/17/23 05:56 Nucleated RBC % (auto) 0 % 08/17/23 05:56 Nucleated RBCs # 0.0 /100WBC 08/17/23 05:56 PT 22.70 SECONDS (12.1-14.9) H 08/17/23 05:56 INR 1.92 (0.8-1.2) H 08/17/23 05:56 Sodium 137 mmol/L (136-145) 08/17/23 05:56 Potassium 3.9 mmol/L (3.5-5.1) 08/17/23 05:56 Chloride 102 mmol/L (98-107) 08/17/23 05:56 Carbon Dioxide 25 mmol/L (22-29) 08/17/23 05:56 Anion Gap 13.9 (5-19) 08/17/23 05:56 BUN 14 mg/dL (6-20) 08/17/23 05:56 Creatinine 1.1 mg/dL (0.7-1.2) 08/17/23 05:56 GFR Calculation 74.9 mL/min (90-130) L 08/17/23 05:56 Glucose 151 mg/dL (65-115) H 08/17/23 05:56 Calculated Osmolality 287 mOsm/kg (285-295) 08/17/23 05:56 Calcium 8.9 mg/dL (8.5-10.5) 08/17/23 05:56 Total Bilirubin 0.3 mg/dL (0.15-1.2) 08/17/23 05:56 AST 14 U/L (0-40) 08/17/23 05:56 ALT 21 U/L (0-41) 08/17/23 05:56 Alkaline Phosphatase 112 U/L (40-130) 08/17/23 05:56 Troponin T Baseline 7 ng/L (0-15) 08/17/23 05:56 NT-Pro-B Natriuret Pep 36 pg/mL (0-125) 08/17/23 05:56 Total Protein 7.3 g/dL (6.6-8.7) 08/17/23 05:56 Albumin 4.3 g/dL (3.5-5.2) 08/17/23 05:56 Globulin 3.0 g/dL (1.3-4.6) 08/17/23 05:56 All radiology interpretation(s) finalized by discharge EKG Data EKG 1: I personally reviewed and interpreted this EKG as follows: EKG Interpretation Date: 08/17/23 EKG interpretation time: 05:49 Interpretation: nsr hr [address] or t wave abnormalities qrs 81 qtc 404 Discharge Plan Discharge Patient Disposition: Home Clinical Impression: Chest pain Condition: Stable Prescriptions: No Action (DME) blood-glucose meter Misc See Rx Instructions .Route Qty: 1 0RF Rx Instructions: As directed (DME) Blood Glucose Test Strip See Rx Instructions .Route Qty: 100 3RF Rx Instructions: once daily (DME) lancets 31 gauge misc See Rx Instructions .Route Qty: 100 3RF Rx Instructions: once daily pantoprazole [Protonix] 40 mg tablet,delayed release (DR/EC) 40 mg PO DAILY Qty: 30 2RF glipizide 10 mg tablet 10 mg PO DAILY Qty: 30 2RF lisinopril 30 mg tablet 30 mg PO DAILY Qty: 30 2RF Depakote ER 500 mg tablet extended release 24 hr 500 mg PO BEDTIME Qty: 30 2RF risperidone 0.5 mg tablet 0.5 mg PO BID Qty: 60 2RF olanzapine 10 mg tablet,disintegrating 10 mg PO DAILY PRN (Reason: anger) Qty: 30 0RF azithromycin [Zithromax] 250 mg tablet See Rx Instructions PO .COMPLEX Qty: 6 0RF Rx Instructions: For 250 mg dose pack: take 500 mg today (day 1), then 250 mg for 4 days (days 2-5) PO benzonatate 200 mg capsule 200 mg PO BID PRN (Reason: cough) Qty: 20 0RF Xarelto 20 mg tablet 20 mg PO DAILY Qty: 30 3RF Hold Instructions: Resume on 05/04/23. 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
[2023-08-17 06:13] LABS: Basophils # 0.1 10^3/uL (0.0-0.1); Basophils % 1.1 %; Eosinophils # 0.6 10^3/uL (0.0-0.8); Eosinophils % 6.2 %; Hematocrit 41.5 % (37-53); Lymphocytes # 3.1 10^3/uL (0.8-4.8); Lymphocytes % 34.7 %; Mean Corpuscular Hemoglobin 30.1 pg (27-33); Mean Corpuscular Volume 88.7 fl (82-101); Monocytes # 0.7 10^3/uL (0.2-0.9); Neutrophils % 49.8 %; Nucleated Red Blood Cells % 0 %; Platelet Count 345 10^3/cmm (157-399); Red Blood Count 4.68 10^6/uL (3.85-5.65); Red Cell Distribution Width 12.6 % (12.1-15.1); White Blood Count 8.85 10^3/uL (3.29-11.43)
[2023-08-17] MEDS: iohexol 350 mg/mL 500 mL Btl (per mL) IV (06:25)
[2023-08-17 06:30] LABS: INR 1.92 (0.8-1.2)
[2023-08-17 06:31] LABS: Alanine Aminotransferase 21 U/L (0-41); Albumin Level 4.3 g/dL (3.5-5.2); Alkaline Phosphatase 112 U/L (40-130); Anion Gap 13.9 (5-19); Aspartate Amino Transferase 14 U/L (0-40); Blood Urea Nitrogen 14 mg/dL (6-20); Calcium 8.9 mg/dL (8.5-10.5); Carbon Dioxide 25 mmol/L (22-29); Chloride 102 mmol/L (98-107); Glomerular Filtration Rate 74.9 mL/min (90-130); Glucose 151 mg/dL (65-115); NT Pro B Type Natriuretic Pept 36 pg/mL (0-125); Osmolality Calculated 287 mOsm/kg (285-295); Potassium 3.9 mmol/L (3.5-5.1); Sodium 137 mmol/L (136-145); Total Bilirubin 0.3 mg/dL (0.15-1.2); Total Protein 7.3 g/dL (6.6-8.7)
[2023-08-17 06:43] LABS: Troponin(5th) Baseline 7 ng/L (0-15)
[2023-08-17 07:18] VITALS: BP 147/115; PULSE 67; O2SAT 99
== END 2023-08-17 07:22 | disposition home or self-care (01) ==
PROVIDERS: Emergency Provider Emergency Medicine; PCP Internal Medicine Medical Oncology
DX: R07.9 Chest pain, unspecified (principal); Z79.84 Long term (current) use of oral hypoglycemic drugs; Z87.891 Personal history of nicotine dependence; I10 Essential (primary) hypertension; Z85.528 Personal history of other malignant neoplasm of kidney; E11.9 Type 2 diabetes mellitus without complications
CPT/HCPCS: 71045; 71275; 80053; 83880; 84484; 85025; 85610; 93005; 99285; Q9967

== ENCOUNTER 2023-10-05 14:17 | Outpatient (CLI) | payer OTHER, SELFPAY ==
[2023-10-05 15:57] LABS: Estmated Average Glucose 120; Hemoglobin A1C 5.8 % (4.0-6.0)
== END 2023-10-05 14:18 | disposition home or self-care (01) ==
PROVIDERS: PCP Family Medicine Adult Medicine; Visit Provider Family Medicine Adult Medicine
DX: E11.9 Type 2 diabetes mellitus without complications (principal)
CPT/HCPCS: 36415; 83036

== ENCOUNTER 2023-12-18 20:51 | Emergency (ER) | payer OTHER, SELFPAY ==
[2023-12-18 20:56] VITALS: BP 214/115; PULSE 93; RESP 18; TEMP 36.6; O2SAT 98; BMI 43.4
--- NOTE | 2023-12-18 21:11 | W.ED.URI ---
HPI - URI/Sore Throat General: Chief Complaint: Upper Respiratory Infection Stated Complaint: Cough Time Seen by Provider: 12/18/23 20:53 History of Present Illness: Patient presents with cough x 2 days. Patient reports feeling some congestion in his chest. Patient appears nontoxic. Patient does have some elevation in blood pressure in the ER tonight and reports he has not been taking his blood pressure medication due to his loss of prescription. Review of Systems General: Reports: 10 or more systems reviewed and unremarkable except in HPI and below Resp: Reports: non-productive cough [facility] ED PFSH: Medical History (Updated 12/18/23 @ 21:12 by RADHA Segal) Morbid obesity with BMI of 45.0-49.9, adult GERD (gastroesophageal reflux disease) History of nephrolithiasis Hypertension Bilateral pulmonary embolism Hx of renal cell cancer Intermittent explosive disorder Psychiatric care Type 2 diabetes mellitus Surgical History History of lithotripsy History of left radical nephrectomy (2013) Hx of cholecystectomy (2011) Family History Mother , AT AGE 41 Cancer BREAST Father No problems noted. Social History Smoking and tobacco/nicotine status: former use of tobacco/nicotine Quit status (tobacco/nicotine): has quit using Year quit tobacco: 2021 Former quit date comment: smoked x15 years Second hand smoke exposure: Yes (At work.) Alcohol intake: former Substance/Drug Use: former Adopted: No Caregiver/support person: No Lives independently: Yes Household members: family Housing: House Marital status: Number of children: 1 Highest education level completed: GED or Equivalent service: No Current occupational status: employed Physical Exam Const: COMMON NORMALS: alert HENMT: COMMON NORMALS: normocephalic HEAD & SCALP: normocephalic Neck/C-Spine: COMMON NORMALS: no meningeal signs Resp: COMMON NORMALS: normal respiratory effort and clear to auscultation bilaterally AUSCULTATION: clear to auscultation bilaterally Cardio: COMMON NORMALS: regular rate and regular rhythm RATE: regular rate RHYTHM: regular rhythm Extremity: COMMON NORMALS: no pedal edema Neuro: SENSORIUM/ORIENTATION: Yes alert MENINGEAL SIGNS: Yes no meningeal signs Skin: COMMON NORMALS: turgor normal GENERAL SKIN EXAM: turgor normal Course Vital Signs: Vital signs: Vital Signs Temperature 97.8 F 12/18/23 20:56 Pulse Rate 93 12/18/23 20:56 Respiratory Rate 18 12/18/23 20:56 Blood Pressure 214/115 12/18/23 20:56 Pulse Oximetry 98 12/18/23 20:56 Oxygen Delivery Me thod Room Air 12/18/23 20:56 MDM - URI/Sore Throat Medical Decision Making 38-year-old male patient comes in today for complaints of cough with congestion. On exam patient appears nontoxic. Lungs are clear to auscultation. Abdomen soft nontender. Bowel sounds are present. Vital signs are normal except for some elevated blood pressure. Patient does endorse that he has not been taking his blood pressure medication. Differential diagnosis includes not limited to upper respiratory infection, bronchitis, pneumonia. No signs of severe illness is noted. Reviewed exam with patient recommended treatment for upper respiratory infection and bronchitis. Patient was given 1 dose of dexamethasone 10 mg due to complaints of sore throat and chest congestion. Courage patient to drink plenty of fluids. Patient was recommended to take his blood pressure medicine and was given 1 dose of it in the ER and should continue his medications at home. Patient reported understanding of care plan and need for follow-up or return to ER for symptoms. No radiology studies performed this visit Discharge Plan Discharge Patient Disposition: Home Clinical Impression: Bronchitis Condition: Stable Prescriptions: No Action (DME) blood-glucose meter Misc See Rx Instructions .Route Qty: 1 0RF Rx Instructions: As directed (DME) Blood Glucose Test Strip See Rx Instructions .Route Qty: 100 3RF Rx Instructions: once daily (DME) lancets 31 gauge misc See Rx Instructions .Route Qty: 100 3RF Rx Instructions: once daily pantoprazole [Protonix] 40 mg tablet,delayed release (DR/EC) 40 mg PO DAILY Qty: 90 1RF Xarelto 20 mg tablet 20 mg PO DAILY Qty: 30 3RF Hold Instructions: Resume on 05/04/23. Rx Instructions: must administer with evening meal lisinopril 30 mg tablet 30 mg PO DAILY Qty: 90 1RF azithromycin 250 mg tablet See Rx Instructions PO .COMPLEX Qty: 6 0RF Rx Instructions: For 250 mg dose pack: take 500 mg today (day 1), then 250 mg for 4 days (days 2-5) PO Discharge Orders: Discharge ED (Routine); Ordered 12/18/23 Ordered By: Antonio Noel Referrals: Rex Renee MD [Primary Care Provider] - Discharge Diet: Usual diet Discharge Activity: Increase activity as tolerated Patient Instructions: Bronchitis (Acute) - Adult Activity Restrictions/Additional Instructions: Home and rest. Drink plenty water and fluids. Use uvli-oci-mxikqou antihistamine as needed for runny nose. Use rjxo-nlf-wryzric dextromethorphan as needed for cough. Use acetaminophen and/or ibuprofen as needed for pain, discomfort, or fever. Follow-up with primary care as needed. No antibiotics are needed at this time. If symptoms last longer than 10 to 14 days you should be reevaluated and at that time antibiotics may be necessary. Most viral illnesses such as bronchitis or upper respiratory infections usually run the course within 7 to 10 days. A cough may persist up to 4 to 6 weeks. Return to ER for worsening symptoms such as uncontrolled fever, inability to hold fluids down, severe chest pain, or severe shortness of breath. 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
[2023-12-18] MEDS: lisinopril 20 mg Tablet PO (21:25)
[2023-12-18] MEDS: dexamethasone 10 mg/mL INJ IM (21:25)
[2023-12-18 21:45] VITALS: BP 147/118; PULSE 18; RESP 100; O2SAT 96
== END 2023-12-18 21:46 | disposition home or self-care (01) ==
PROVIDERS: Emergency Provider Nurse Practitioner Family; PCP Family Medicine Adult Medicine
DX: J40 Bronchitis, not specified as acute or chronic (principal); Z87.891 Personal history of nicotine dependence; I10 Essential (primary) hypertension; E11.9 Type 2 diabetes mellitus without complications; Z85.528 Personal history of other malignant neoplasm of kidney
CPT/HCPCS: 96372; 99284; J1100

== ENCOUNTER 2023-12-22 21:13 | Emergency (ER) | payer OTHER, SELFPAY ==
[2023-12-22 21:16] VITALS: BP 158/89; PULSE 97; RESP 16; TEMP 36.7; O2SAT 97
--- NOTE | 2023-12-22 21:32 | XRR_ITS ---
PROCEDURE INFORMATION: Exam: XR Chest Exam date and time: 12/22/2023 9:55 PM Age: 38 years old Clinical indication: Cough with hemorrhage; Patient HX: Cough with bood, SOB with laying, patient to er Tuesday and dx with bronchitis TECHNIQUE: Imaging protocol: Radiologic exam of the chest. Views: 1 view. COMPARISON: CR XR chest 1V portable [id number] 08/17/2023 6:26 AM FINDINGS: Lungs: Unremarkable. No consolidation. Pleural spaces: Unremarkable. No pleural effusion. No pneumothorax. Heart/Mediastinum: Unremarkable. No cardiomegaly. Bones/joints: Unremarkable. XR/XR chest 1V portable [id number] IMPRESSION: No acute findings.
[2023-12-22 21:39] VITALS: BP 155/101; PULSE 94; O2SAT 95
--- NOTE | 2023-12-22 21:40 | W.ED.URI ---
HPI - URI/Sore Throat General: Chief Complaint: Upper Respiratory Infection Stated Complaint: cough blood and swollen throat Time Seen by Provider: 12/22/23 21:32 History of Present Illness: Patient comes in today for complaints of cough, congestion, and sore throat. Patient been ill about 3 to 4 days now. Patient was seen 2 days ago and given a dose of dexamethasone for his complaints. Patient continues to have discomfort. And does not feel any better. Patient appears nontoxic. Patient appears in mild pain. Review of Systems General: Reports: 10 or more systems reviewed and unremarkable except in HPI and below ENMT: Reports: throat pain Resp: Reports: non-productive cough PFSH ED PFSH: Medical History (Updated 12/22/23 @ 22:27 by RADHA Segal) Morbid obesity with BMI of 45.0-49.9, adult GERD (gastroesophageal reflux disease) History of nephrolithiasis Hypertension Bilateral pulmonary embolism Hx of renal cell cancer Intermittent explosive disorder Psychiatric care Type 2 diabetes mellitus Surgical History History of lithotripsy History of left radical nephrectomy (2013) Hx of cholecystectomy (2011) Family History Mother , AT AGE 41 Cancer BREAST Father No problems noted. Social History Smoking and tobacco/nicotine status: former use of tobacco/nicotine Quit status (tobacco/nicotine): has quit using Year quit tobacco: 2021 Former quit date comment: smoked x15 years Second hand smoke exposure: Yes (At work.) Alcohol intake: former Substance/Drug Use: former Adopted: No Caregiver/support person: No Lives independently: Yes Household members: family Housing: House Marital status: Number of children: 1 Highest education level completed: GED or Equivalent service: No Current occupational status: employed Physical Exam Const: COMMON NORMALS: alert HENMT: COMMON NORMALS: normocephalic HEAD & SCALP: normocephalic THROAT: posterior oropharynx normal Resp: COMMON NORMALS: normal respiratory effort and clear to auscultation bilaterally AUSCULTATION: clear to auscultation bilaterally Cardio: COMMON NORMALS: regular rate and regular rhythm RATE: regular rate RHYTHM: regular rhythm Extremity: COMMON NORMALS: no pedal edema Neuro: SENSORIUM/ORIENTATION: Yes alert Skin: COMMON NORMALS: turgor normal GENERAL SKIN EXAM: turgor normal Course Vital Signs: Vital signs: Vital Signs Temperature 98.0 F 12/22/23 21:16 Pulse Rate 92 12/22/23 22:10 Respiratory Rate 16 12/22/23 21:16 Blood Pressure 157/97 12/22/23 22:10 Pulse Oximetry 94 12/22/23 22:10 Oxygen Delivery Me thod Room Air 12/22/23 22:10 MDM - URI/Sore Throat Medical Decision Making 38-year-old male patient comes in today for persistent symptoms of upper respiratory infection. On exam posterior pharynx is normal in appearance. Lungs are clear to auscultation. Abdomen soft nontender. Patient was diagnosed with bronchitis 2 days ago I had seen the patient at that time at that time. Had some rhonchi in his lung [place] and was given a dose of dexamethasone. Tonight his lung sounds are improved but patient complains of cough and congestion with some hemoptysis. Vital signs are normal. Differential diagnosis includes not limited to pneumonia, bronchitis, viral syndrome, malingering. Chest x-ray was normal. Patient was negative for flu, COVID, and group A strep. Patient will be covered with doxycycline for persistent symptoms for secondary bacterial infection. No worsening of exam was noted. Recommended patient follow-up with primary care or return to the ER for worsening symptoms. Lab Data Radiology Impressions Chest X-Ray 12/22/23 21:32 IMPRESSION: No acute findings. Laboratory Results Influenza Type A Ag negative (Negative) 12/22/23 21:46 Influenza Type B Ag negative (Negative) 12/22/23 21:46 SARS-CoV-2 Ag (Rapid) Negative (Negative) 12/22/23 21:46 Group A Strep Rapid Negative (Negative) 12/22/23 21:46 All radiology interpretation(s) finalized by discharge Discharge Plan Discharge Patient Disposition: Home Clinical Impression: Bronchitis Cough Qualifiers: Cough type: acute Qualified Code(s): R05.1 - Acute cough Condition: Stable Prescriptions: New doxycycline hyclate 100 mg capsule 100 mg PO BID 7 Days Qty: 14 0RF promethazine-DM 6.25-15 mg/5 mL syrup 5 ml PO Q6H PRN (Reason: cough) Qty: 118 0RF No Action (DME) blood-glucose meter Misc See Rx Instructions .Route Qty: 1 0RF Rx Instructions: As directed (DME) Blood Glucose Test Strip See Rx Instructions .Route Qty: 100 3RF Rx Instructions: once daily (DME) lancets 31 gauge misc See Rx Instructions .Route Qty: 100 3RF Rx Instructions: once daily pantoprazole [Protonix] 40 mg tablet,delayed release (DR/EC) 40 mg PO DAILY Qty: 90 1RF Xarelto 20 mg tablet 20 mg PO DAILY Qty: 30 3RF Hold Instructions: Resume on 05/04/23. Rx Instructions: must administer with evening meal lisinopril 30 mg tablet 30 mg PO DAILY Qty: 90 1RF azithromycin 250 mg tablet See Rx Instructions PO .COMPLEX Qty: 6 0RF Rx Instructions: For 250 mg dose pack: take 500 mg today (day 1), then 250 mg for 4 days (days 2-5) PO Discharge Orders: Discharge ED (Routine); Ordered 12/22/23 Ordered By: Antonio Noel Referrals: Rex Renee MD [Primary Care Provider] - Patient Instructions: Acute Cough (ED) Activity Restrictions/Additional Instructions: Drink plenty of fluids. Medications as directed. Follow-up with primary care. Coding Level of Care Code ED Health Education Assistant for Fabian Colón
[2023-12-22 22:10] VITALS: BP 157/97; PULSE 92; O2SAT 94
[2023-12-22 22:13] LABS: Influenza A by IFA negative (Negative); Influenza B by IFA negative (Negative)
[2023-12-22 22:19] LABS: Rapid Strep A Test Negative (Negative); SARS Covid-2 Antigen Negative (Negative)
[2023-12-22] MEDS: doxycycline 100 mg Tablet PO (22:42)
[2023-12-22] MEDS: dexamethasone 10 mg/mL INJ IM (22:42)
[2023-12-22] MEDS: benzonatate 100 mg Capsule PO (22:42)
--- NOTE | 2023-12-22 22:54 | PC.NURSE ---
Pain medication unable to be returned to [facility] due to partially torn label. Medication wasted, witnessed by Rehan Johnson RN.
--- NOTE | 2023-12-23 10:59 | PC.NURSE ---
prescriptions called into [facility] pharmacy, provider did not escribe prior to dc
== END 2023-12-22 23:18 | disposition home or self-care (01) ==
PROVIDERS: Emergency Provider Nurse Practitioner Family; PCP Family Medicine Adult Medicine
DX: J40 Bronchitis, not specified as acute or chronic (principal); Z11.52 Encounter for screening for COVID-19; Z87.891 Personal history of nicotine dependence; I10 Essential (primary) hypertension; E11.9 Type 2 diabetes mellitus without complications; Z85.528 Personal history of other malignant neoplasm of kidney
CPT/HCPCS: 71045; 87081; 87426; 87804; 87880; 96372; 99284; J1100

== ENCOUNTER 2024-01-20 09:02 | Oncology outpatient (recurring) (ONCR) | payer OTHER, SELFPAY ==
[2024-01-20 09:49] LABS: Basophils # 0.1 10^3/uL (0.0-0.1); Basophils % 1.7 %; Eosinophils # 0.3 10^3/uL (0.0-0.8); Eosinophils % 4.2 %; Hematocrit 42.1 % (37-53); Lymphocytes # 2.4 10^3/uL (0.8-4.8); Lymphocytes % 33.6 %; Mean Corpuscular HGB Conc 33.7 g/dL (30-55); Mean Corpuscular Hemoglobin 30.3 pg (27-33); Mean Platelet Volume 8.8 fL (7.4-10.4); Monocytes # 0.7 10^3/uL (0.2-0.9); Monocytes % 9.6 %; Neutrophils # 3.63 10^3/uL (1.8-7.7); Neutrophils % 50.6 %; Nucleated Red Blood Cells % 0 %; Platelet Count 327 10^3/cmm (157-399); Red Blood Count 4.68 10^6/uL (3.85-5.65); Red Cell Distribution Width 12.7 % (12.1-15.1); White Blood Count 7.17 10^3/uL (3.29-11.43)
[2024-01-20 10:06] LABS: Alanine Aminotransferase 27 U/L (0-41); Albumin Level 4.2 g/dL (3.5-5.2); Alkaline Phosphatase 112 U/L (40-130); Anion Gap 16.3 (5-19); Aspartate Amino Transferase 18 U/L (0-40); Blood Urea Nitrogen 12 mg/dL (6-20); Carbon Dioxide 25 mmol/L (22-29); Chloride 101 mmol/L (98-107); Globulin 3.5 g/dL (1.3-4.6); Glomerular Filtration Rate 94.4 mL/min (90-130); Glucose 102 mg/dL (65-115); Osmolality Calculated 286 mOsm/kg (285-295); Potassium 4.3 mmol/L (3.5-5.1); Sodium 138 mmol/L (136-145); Total Bilirubin 0.3 mg/dL (0.15-1.2); Total Protein 7.7 g/dL (6.6-8.7)
[2024-01-23 03:41] LABS: Beta 2 Glycoprotein IGA <2.0 U/mL (<20.0); Beta 2 Glycoprotein IGG <2.0 U/mL (<20.0); Beta 2 Glycoprotein IGM <2.0 U/mL (<20.0)
[2024-01-23 11:16] LABS: Protein S Antigen, Total 146 % normal (70-140)
[2024-01-24 04:00] LABS: PROTEIN C, ACTIVITY 176 % normal (70-180)
[2024-01-24 04:24] LABS: Antithrombin III Activity 118 % normal (80-135)
[2024-01-25 01:35] LABS: CARDIOLIPIN AB (IGA) <2.0 APL-U/mL; CARDIOLIPIN AB (IGG) <2.0 GPL-U/mL; CARDIOLIPIN AB (IGM) <2.0 MPL-U/mL
[2024-01-26 15:54] LABS: Factor 5 Leiden Mutation NEGATIVE
[2024-01-26 16:09] LABS: PROTHROMBIN (FACTOR II) 20210G NEGATIVE
== END 2024-01-26 23:59 | disposition home or self-care (01) ==
PROVIDERS: PCP Family Medicine Adult Medicine; Visit Provider Internal Medicine Medical Oncology
DX: I26.99 Other pulmonary embolism without acute cor pulmonale (principal)
CPT/HCPCS: 36415; 80053; 81241; 85025; 85210; 85300; 85303; 85305; 86146; 86147

== ENCOUNTER 2024-03-14 21:44 | Emergency (ER) | payer OTHER, SELFPAY ==
[2024-03-14 21:51] VITALS: BP 188/105; PULSE 106; RESP 16; TEMP 38.4; O2SAT 97
--- NOTE | 2024-03-14 23:13 | XRR_ITS ---
PROCEDURE INFORMATION: Exam: XR Chest Exam date and time: 03/14/2024 11:47 PM Age: 38 years old Clinical indication: Cough; Additional info: Dyspnea TECHNIQUE: Imaging protocol: Radiologic exam of the chest. Views: 1 view. COMPARISON: CR XR chest 1V portable [id number] 12/22/2023 9:55 PM FINDINGS: Lungs: Unremarkable. No consolidation. Pleural spaces: Unremarkable. No pleural effusion. No pneumothorax. Heart/Mediastinum: Unremarkable. No cardiomegaly. Bones/joints: Unremarkable. XR/XR chest 1V portable [id number] IMPRESSION: No acute findings.
[2024-03-14 23:44] LABS: Basophils % 0.4 %; Eosinophils # 0.1 10^3/uL (0.0-0.8); Eosinophils % 1.1 %; Hematocrit 41.8 % (37-53); Lymphocytes # 0.7 10^3/uL (0.8-4.8); Lymphocytes % 8.1 %; Mean Corpuscular HGB Conc 34.7 g/dL (30-55); Mean Corpuscular Hemoglobin 30.3 pg (27-33); Mean Corpuscular Volume 87.3 fl (82-101); Mean Platelet Volume 9.1 fL (7.4-10.4); Monocytes # 0.3 10^3/uL (0.2-0.9); Monocytes % 3.4 %; Neutrophils # 7.08 10^3/uL (1.8-7.7); Neutrophils % 86.9 %; Nucleated Red Blood Cells % 0 %; Platelet Count 283 10^3/cmm (157-399); Red Blood Count 4.79 10^6/uL (3.85-5.65); Red Cell Distribution Width 12.8 % (12.1-15.1); White Blood Count 8.15 10^3/uL (3.29-11.43)
[2024-03-14 23:46] LABS: Rapid Strep A Test Negative (Negative)
[2024-03-15] LABS: Alanine Aminotransferase 31 U/L (0-41); Albumin Level 4.5 g/dL (3.5-5.2); Alkaline Phosphatase 116 U/L (40-130); Chloride 99 mmol/L (98-107); Potassium 3.8 mmol/L (3.5-5.1)
[2024-03-15 00:01] LABS: Add Urine Microscopic? YES; Bilirubin Urine 1+ (Negative); Blood Urine 3+ (Negative); Glucose Urine UA Norm (Normal); Ketones Urine 1+ (Negative); Leukocyte Esterase Urine Negative (Negative); Nitrate Urine Negative (Negative); Protein Urine 1+ (Negative); RBC Urine 0-4 /hpf (0-2); Specific Gravity, Urine 1.025 (1.005-1.030); Urine Appearance Clear (CLEAR); Urine Color Yellow (Yellow); Urobilinogen Urine 1 mg/dL (Negative); pH Urine 5 (5-7)
[2024-03-15 00:02] LABS: Add Urine Culture? No; Bacteria Urine TRACE /hpf; Mucus Urine 2+ /hpf; Squamous Epithelial Cell Urine 0-4 /hpf (0-5)
[2024-03-15 00:06] LABS: Amphetamines Screen Urine Negative (Negative); Barbiturates Screen Urine Negative (Negative); Benzodiazepines Screen Urine Negative (Negative); Cocaine Screen Urine Negative (Negative); Opiate Screen Urine Negative (Negative); PCP Screen Urine Negative (Negative); THC Screen Urine Negative (Negative)
[2024-03-15 00:06] LABS: SARS Covid-2 Antigen Negative (Negative)
[2024-03-15 00:07] LABS: Anion Gap 18.8 (5-19); Aspartate Amino Transferase 23 U/L (0-40); Blood Urea Nitrogen 15 mg/dL (6-20); Calcium 8.8 mg/dL (8.5-10.5); Carbon Dioxide 21 mmol/L (22-29); Creatinine Clr Calc Pharmacy 133.5605; Globulin 3.6 g/dL (1.3-4.6); Glomerular Filtration Rate 83.6 mL/min (90-130); Glucose 127 mg/dL (65-115); Osmolality Calculated 282 mOsm/kg (285-295); Sodium 135 mmol/L (136-145); Total Bilirubin 0.6 mg/dL (0.15-1.2); Total Protein 7.9 g/dL (6.6-8.7)
--- NOTE | 2024-03-15 01:08 | ED_ITS ---
HPI - URI/Sore Throat 2 General: Chief Complaint: Upper Respiratory Infection Stated Complaint: fever n/v/d headache bp high Time Seen by Provider: 03/14/24 23:04 History of Present Illness: 38-year-old male presents emergency depa rtment complaints of fever, nausea, vomiting, and diarrhea as well as a generalized throbbing headache. He states he also feels like he has elevated blood pressure. He states he has been exposed to sick contacts with similar illnesses. He states he has generalized fatigue and malaise. He states he has had more than 6 episodes of diarrhea and 8-10 episodes of nausea and vomiting. He states his headache is a 8 out of 10 headache. He denies chest pain or shortness of breath. He denies neck stiffness. Associated symptoms: Reports diarrhea, fever(s), nausea and vomiting Review of Systems 2 General: Reports: 10 or more systems reviewed and unremarkable except in HPI and below Const: Reports: fever(s), body aches, fatigue and malaise GI: Reports: nausea, vomiting and diarrhea PFSH ED 2 PFSH: Medical History Bilateral pulmonary embolism GERD (gastroesophageal reflux disease) History of nephrolithiasis Hx of renal cell cancer Hypertension Intermittent explosive disorder Morbid obesity with BMI of 45.0-49.9, adult Psychiatric care Type 2 diabetes mellitus Surgical History History of left radical nephrectomy (2013) for Renal Cell CA History of lithotripsy Hx of cholecystectomy (2011) Family History Mother , AT AGE 41 Cancer BREAST Father No problems noted. Social History Smoking and tobacco/nicotine status: former use of tobacco/nicotine Quit status (tobacco/nicotine): has quit using Year quit tobacco: 2021 Former quit date comment: smoked x15 years Second hand smoke exposure: Yes (At work.) Alcohol intake: former Substance/Drug Use: former Adopted: No Caregiver/support person: No Lives independently: Yes Household members: family Housing: House Marital status: Number of children: 1 Highest education level completed: GED or Equivalent service: No Current occupational status: employed Physical Exam 2 Narrative: EXAM NARRATIVE: Constitutional: the patient appears well nourished and of normal development. Vital signs as documented. No acute distress at present. Alert and oriented-to person, place, time and situation. Head, eyes, ears, nose, mouth, throat: Normocephalic, atraumatic. Pupils-equal, round, reactive to light. No scleral icterus. Normal-appearing external ears. Normal appearing nasal turbinates, no drainage. No obvious oral lesions, posterior oropharynx with mild erythema, no tonsillar exudates Neck: Supple, trachea is midline, no lymphadenopathy, no jugular venous distension, thyromegaly, or carotid bruits. Carotid upstrokes are brisk bilaterally. Lungs: clear to auscultation to all lung [place]. Symmetrical rise and fall of chest, no obvious signs of increased work of breathing at present. Cardiac: Sinus tachycardia noted on the site monitor., positive S1, S2. No murmurs, rubs or gallops that I can appreciate Abdomen: Soft, non-tender to palpation, normal active bowel sounds to all quadrants. No palpable masses, no organomegaly and abdominal bruits. Extremities: 2+ pulses in the upper extremities that are equal bilaterally, 2+ pulses in the lower extremities that are equal bilaterally. Non-edematous. Moves all extremities well, sensation to all extremities are noted. Skin: Warm, dry, intact. Course 2 Vital Signs: Vital signs: Vital Signs Temperature 101.1 F H 03/14/24 21:51 Pulse Rate 106 H 03/14/24 21:51 Respiratory Rate 16 03/14/24 21:51 Blood Pressure 188/105 03/14/24 21:51 Pulse Oximetry 97 03/14/24 21:51 Oxygen Delivery Me thod Room Air 03/14/24 21:51 MDM - URI/Sore Throat Medical Decision Making Physical exam completed and documented. CBC and CMP were essentially unremarkable. Rapid strep test is negative, COVID screen is negative, chest x- ray without acute findings. Urinalysis and urine drug screen were both negative. Given the patient's viral symptoms and fever I did provide him IV fluid rehydration as well as Toradol and Tylenol. Educated the patient regarding supportive care and treatment and recommended follow-up with his primary care provider. Medical Records I reviewed the patient's medical records. Lab Data I reviewed the patient's lab results. 03/14/24 23:29 03/14/24 23: Radiology Impressions Chest X-Ray 03/14/24 23:13 IMPRESSION: No acute findings. Laboratory Results WBC 8.15 10^3/uL (3.29-11.43) 03/14/24 23: RBC 4.79 10^6/uL (3.85-5.65) 03/14/24 23: Hgb 14.50 g/dL (11.27-16.99) 03/14/24 23: Hct 41.8 % (37-53) 03/14/24 23: MCV 87.3 fl (82-101) 03/14/24 23: MCH 30.3 pg (27-33) 03/14/24 23: MCHC 34.7 g/dL (30-55) 03/14/24: RDW 12.8 % (12.1-15.1) 03/14/24: Plt Count 283 10^3/cmm (157-399) 03/14/24 23: MPV 9.1 fL (7.4-10.4) 03/14/24 23: Neut % (Auto) 86.9 % 03/14/24: Lymph % (Auto) 8.1 % 03/14/24: [place] % (Auto) 3.4 % 03/14/24 23: Eos % (Auto) 1.1 % 03/14/24: Baso % (Auto) 0.4 % 03/14/24: Neut # (Auto) 7.08 10^3/uL (1.8-7.7) 03/14/24: Lymph # (Auto) 0.7 10^3/uL (0.8-4.8) L 03/14/24: [place] # (Auto) 0.3 10^3/uL (0.2-0.9) 03/14/24 23: Eos # (Auto) 0.1 10^3/uL (0.0-0.8) 03/14/24: Baso # (Auto) 0.0 10^3/uL (0.0-0.1) 03/14/24 23:29 Nucleated RBC % (auto) 0 % 03/14/24 23: Nucleated RBCs # 0.0 /100WBC 03/14/24 23:29 PT 13.50 SECONDS (12.1-14.9) 03/14/24 23:29 INR 1.00 (0.8-1.2) 03/14/24 23:29 Sodium 135 mmol/L (136-145) L 03/14/24 23:29 Potassium 3.8 mmol/L (3.5-5.1) 03/14/24 23:29 Chloride 99 mmol/L (98-107) 03/14/24 23:29 Carbon Dioxide 21 mmol/L (22-29) L 03/14/24 23:29 Anion Gap 18.8 (5-19) 03/14/24 23:29 BUN 15 mg/dL (6-20) 03/14/24 23:29 Creatinine 1.0 mg/dL (0.7-1.2) 03/14/24 23:29 GFR Calculation 83.6 mL/min (90-130) L 03/14/24 23:29 Glucose 127 mg/dL (65-115) H 03/14/24 23:29 Calculated Osmolality 282 mOsm/kg (285-295) L 03/14/24 23:29 Calcium 8.8 mg/dL (8.5-10.5) 03/14/24 23:29 Total Bilirubin 0.6 mg/dL (0.15-1.2) 03/14/24 23:29 AST 23 U/L (0-40) 03/14/24 23: ALT 31 U/L (0-41) 03/14/24 23:29 Alkaline Phosphatase 116 U/L (40-130) 03/14/24 23:29 Total Protein 7.9 g/dL (6.6-8.7) 03/14/24 23: Albumin 4.5 g/dL (3.5-5.2) 03/14/24 23:29 Globulin 3.6 g/dL (1.3-4.6) 03/14/24 23:29 Urine Color Yellow (Yellow) 03/14/24 23:48 Urine Appearance Clear (CLEAR) 03/14/24 23:48 Urine pH 5 (5-7) 03/14/24 23:48 Ur Specific [place] 1.025 (1.005-1.030) 03/14/24 23:48 Urine Protein 1+ (Negative) H 03/14/24 23:48 Urine Glucose (UA) Norm (Normal) 03/14/24 23:48 Urine Ketones 1+ (Negative) H 03/14/24 23:48 Urine Blood 3+ (Negative) H 03/14/24 23:48 Urine Nitrate Negative (Negative) 03/14/24 23:48 Urine Bilirubin 1+ (Negative) H 03/14/24 23:48 Urine Urobilinogen 1 mg/dL (Negative) H 03/14/24 23:48 Ur Leukocyte Esterase Negative (Negative) 03/14/24 23:48 Urine RBC 0-4 /hpf (0-2) H 03/14/24 23:48 Urine WBC None /hpf (0-5) 03/14/24 23:48 Ur Squamous Epith Cells 0-4 /hpf (0-5) H 03/14/24 23:48 Amorphous Sediment Not Reportable 03/14/24 23:48 Urine Bacteria Trace /hpf (NONE) 03/14/24 23:48 Urine Mucus 2+ /hpf 03/14/24 23:48 Urine Opiates Screen Negative ng/mL (Negative) 03/14/24 23:48 Ur Barbiturates Screen Negative ng/mL (Negative) 03/14/24 23:48 Ur Phencyclidine Scrn Negative ng/mL (Negative) 03/14/24 23:48 Ur Amphetamines Screen Negative ng/mL (Negative) 03/14/24 23:48 U Benzodiazepines Scrn Negative ng/mL (Negative) 03/14/24 23:48 Urine Cocaine Screen Negative ng/mL (Negative) 03/14/24 23:48 U Marijuana (THC) Screen Negative ng/mL (Negative) 03/14/24 23:48 SARS-CoV-2 Ag (Rapid) Negative (Negative) 03/14/24 23:24 Group A Strep Rapid Negative (Negative) 03/14/24 23:24 All radiology interpretation(s) finalized by discharge Discharge Plan Discharge Patient Disposition: Home Clinical Impression: Fever, Viral illness, Nausea & vomiting, Diarrhea, Headache, Viral upper respiratory illness Condition: Stable Prescriptions: New ondansetron HCl 4 mg tablet 4 mg PO Q6H PRN (Reason: nausea and vomiting) Qty: 14 0RF No Action (DME) blood-glucose meter Misc See Rx Instructions .Route Qty: 1 0RF Rx Instructions: As directed (DME) Blood Glucose Test Strip See Rx Instructions .Route Qty: 100 3RF Rx Instructions: once daily (DME) lancets 31 gauge misc See Rx Instructions .Route Qty: 100 3RF Rx Instructions: once daily pantoprazole [Protonix] 40 mg tablet,delayed release (DR/EC) 40 mg PO DAILY Qty: 90 1RF Xarelto 20 mg tablet 20 mg PO DAILY Qty: 30 3RF Hold Instructions: Resume on 05/04/23. Rx Instructions: must administer with evening meal lisinopril 30 mg tablet 30 mg PO DAILY Qty: 90 1RF Discharge Orders: Discharge ED (Routine); Ordered 03/15/24 Ordered By: Adan Anand Discharge Diet: Usual diet Discharge Activity: Resume usual activity Patient Instructions: Opioid Safety, Pain Management Activity Restrictions/Additional Instructions: Activity Restrictions/Additional Instructions: Thank you for choosing [facility] for your healthcare needs today. Please realize that you were seen in the Emergency Department and that we are providing you with an emergency medical screening exam and this may not be a complete and all inclusive of all the testing and or medical work-up that you may need to determine your ailment or severity of your illness. It is very important that you follow-up as instructed with your Primary care provider or Specialist for additional evaluation and to discuss your medical treatment plan. Coding Level of Care Code ED Cafeteria Clerk for Fabian Colón
[2024-03-15] MEDS: sodium chloride 0.9% 1,000 ML 999 ML IV (01:25)
[2024-03-15] MEDS: acetaminophen 500 mg Tablet 1000 MG PO (01:26)
[2024-03-15] MEDS: ketorolac 30 mg/mL INJ IVP (01:28)
[2024-03-15 02:45] VITALS: BP 143/85; PULSE 82; RESP 19; O2SAT 93
[2024-03-15 02:48] VITALS: BP 143/85; PULSE 82; RESP 19; TEMP 36.6; O2SAT 93
== END 2024-03-15 02:48 | disposition home or self-care (01) ==
PROVIDERS: Emergency Provider Internal Medicine
DX: J06.9 Acute upper respiratory infection, unspecified (principal); R50.9 Fever, unspecified; R11.2 Nausea with vomiting, unspecified; R19.7 Diarrhea, unspecified; R51.9 Headache, unspecified; Z11.52 Encounter for screening for COVID-19; Z87.891 Personal history of nicotine dependence; Z85.528 Personal history of other malignant neoplasm of kidney; I10 Essential (primary) hypertension; E11.9 Type 2 diabetes mellitus without complications; Z90.5 Acquired absence of kidney
CPT/HCPCS: 71045; 80053; 80306; 81001; 81003; 85025; 85610; 87081; 87426; 87880; 96361; 96374; 99284; J1885; J7030

== ENCOUNTER 2024-04-05 21:46 | Emergency (ER) | payer MEDICARE, SELFPAY ==
[2024-04-05 22:13] VITALS: BP 146/87; PULSE 83; RESP 20; TEMP 36.8; O2SAT 94; BMI 43.4
--- NOTE | 2024-04-05 23:19 | USR_ITS ---
PROCEDURE INFORMATION: Exam: US Duplex Left Lower Extremity Veins, Limited Exam date and time: 04/05/2024 11:35 PM Age: 38 years old Clinical indication: Pain; Leg, lower; Left; Patient HX: History of pulmonary emboli 2021. Patient was seen here 03/11/2023 for similar symptoms and lle venous duplex was normal at that time. ; Additional info: Left calf pain swelling, HX of dvt TECHNIQUE: Imaging protocol: Real-time duplex ultrasound of the left extremity with 2-D marte scale, color Doppler flow and spectral waveform analysis including responses to compression and other maneuvers (when performed) with image documentation. Limited exam focused on the left lower extremity veins. COMPARISON: US scrotum [id number] 07/15/2021 12:08 AM FINDINGS: Left deep veins: Unremarkable. The common femoral, femoral, proximal profunda femoral and popliteal veins are patent without thrombus. Normal Doppler waveforms. Normal compressibility and/or augmentation response. Superficial veins: Greater saphenous vein at the saphenofemoral junction is patent without thrombus. Soft tissues: Unremarkable. US/CV venous duplex [facility] [id number] IMPRESSION: 1. No evidence of deep vein thrombosis. 2. No mass, fluid collection or abscess at the area of discomfort.
--- NOTE | 2024-04-06 01:39 | ED_ITS ---
HPI - Extremity Problem General: Chief complaint: Extremity Problem,Nontraumatic Stated complaint: Pain in Calves Time Seen by Provider: 04/06/24 01:36 History of Present Illness: Patient presents to the ER complaining of pain in his left calf. Patient spoke with Dr. Pisano they told him to come here to be checked out because patient does have a history of blood clots. Patient is currently on Xarelto. Patient does not remember any trauma to his left calf region. There is no redness swelling. It is worse when he flexes the muscle. Patient denies any nausea vomiting fever chills Review of Systems General: Reports: 10 or more systems reviewed and unremarkable except in HPI and below PFSH ED PFSH: Medical History Morbid obesity with BMI of 45.0-49.9, adult GERD (gastroesophageal reflux disease) History of nephrolithiasis Hypertension Bilateral pulmonary embolism Hx of renal cell cancer Intermittent explosive disorder Type 2 diabetes mellitus Surgical History History of lithotripsy History of left radical nephrectomy (2013) for Renal Cell CA Hx of cholecystectomy (2011) Family History Mother , AT AGE 41 Cancer BREAST Father No problems noted. Social History Smoking and tobacco/nicotine status: former use of tobacco/nicotine Quit status (tobacco/nicotine): has quit using Year quit tobacco: 2021 Former quit date comment: smoked x15 years Second hand smoke exposure: Yes (At work.) Alcohol intake: former Substance/Drug Use: former Adopted: No Caregiver/support person: No Lives independently: Yes Household members: family Housing: House Marital status: Number of children: 1 Highest education level completed: GED or Equivalent service: No Current occupational status: employed Physical Exam HENMT: COMMON NORMALS: normocephalic, atraumatic, hearing grossly normal bilaterally, external ears normal, Normal external nose present, moist oral mucous membranes and oropharynx normal HEAD & SCALP: normocephalic and atraumatic NOSE: Normal external nose present EXTERNAL EAR: Yes external ears normal Neck/C-Spine: COMMON NORMALS: no JVD Chest: COMMONS NORMALS: normal inspection of the chest and normal palpation of entire chest wall Resp: COMMON NORMALS: normal respiratory effort, No retractions, No use of accessory muscles and clear to auscultation bilaterally AUSCULTATION: clear to auscultation bilaterally Cardio: COMMON NORMALS: no JVD, regular rate, regular rhythm, S1 normal heart sound present, S2 normal heart sound present, No gallops present (Cardio), No clicks present (Cardio), No murmurs present (Cardio) and No rub (Cardio) RATE: regular rate RHYTHM: regular rhythm HEART SOUNDS: S1 normal heart sound present and S2 normal heart sound present GI: COMMON NORMALS: Normal to inspection, nondistended, normoactive bowel sounds present, Soft to palpation, non-tender, No hepatosplenomegaly present and no masses PALPATION: Yes Soft to palpation and Yes No hepatosplenomegaly present Extremity: NARRATIVE EXTREMITY EXAM: Minimal bilateral lower extremity edema, tenderness with palpation and squeezing over left calf muscle. No tenderness with right calf muscle. There is mild tenderness to palpation over the left anterior jasmine muscles also. There is no redness, erythema, streaking, Course Vital Signs: Vital signs: Vital Signs Temperature 98.2 F 04/05/24 22:13 Pulse Rate 83 04/05/24 22:13 Respiratory Rate 20 H 04/05/24 22:13 Blood Pressure 146/87 04/05/24 22:13 Pulse Oximetry 94 04/05/24 22:13 Oxygen Delivery Me thod Room Air 04/05/24 22:13 MDM - Extremity (Nontraumatic) Medical Decision Making Ultrasound of the left lower extremity was negative for DVT mass fluid collection or abscess, patient is on Xarelto currently. Patient be discharged back to follow-up with his family practice physician for further evaluation testing. Lab Data Radiology Impressions Venous Duplex 04/05/24 23:19 IMPRESSION: 1. No evidence of deep vein thrombosis. 2. No mass, fluid collection or abscess at the area of discomfort. All radiology interpretation(s) finalized by discharge Discharge Plan Discharge Patient Disposition: Home Clinical Impression: Acute pain of left lower extremity Condition: Stable Prescriptions: No Action (DME) blood-glucose meter Misc See Rx Instructions .Route Qty: 1 0RF Rx Instructions: As directed (DME) Blood Glucose Test Strip See Rx Instructions .Route Qty: 100 3RF Rx Instructions: once daily (DME) lancets 31 gauge misc See Rx Instructions .Route Qty: 100 3RF Rx Instructions: once daily pantoprazole [Protonix] 40 mg tablet,delayed release (DR/EC) 40 mg PO DAILY Qty: 90 1RF Xarelto 20 mg tablet 20 mg PO DAILY Qty: 30 3RF Hold Instructions: Resume on 05/04/23. Rx Instructions: must administer with evening meal lisinopril 30 mg tablet 30 mg PO DAILY Qty: 90 1RF ondansetron HCl 4 mg tablet 4 mg PO Q6H PRN (Reason: nausea and vomiting) Qty: 14 0RF Discharge Orders: Discharge ED (Routine); Ordered 04/06/24 Ordered By: Tayo Powell Patient Instructions: Leg Pain (ED) Activity Restrictions/Additional Instructions: The ultrasound of your left lower leg was negative for blood clots. Please consider taking [id number] Tylenol as needed for pain and following up with your family practice physician within next 7 days for further evaluation and treatment. Coding Level of Care Code ED Dialysis Chief Equipment Technician for [facility] Colón
[2024-04-06 01:54] VITALS: BP 154/83; PULSE 73; O2SAT 97
== END 2024-04-06 01:54 | disposition home or self-care (01) ==
PROVIDERS: Emergency Provider Emergency Medicine
DX: M79.605 Pain in left leg (principal); Z87.891 Personal history of nicotine dependence; I10 Essential (primary) hypertension; E11.9 Type 2 diabetes mellitus without complications; Z85.528 Personal history of other malignant neoplasm of kidney
CPT/HCPCS: 93971; 99284

== ENCOUNTER 2024-06-28 20:01 | Emergency (ER) | payer MEDICARE, SELFPAY ==
[2024-06-28 20:12] VITALS: BP 172/106; PULSE 77; RESP 18; TEMP 36.8; O2SAT 97; BMI 45.1
--- NOTE | 2024-06-28 20:23 | ED_ITS ---
HPI - Skin/Abscess/Foreign Bdy General: Chief complaint: Skin/Abscess/Foreign Body Stated complaint: Allergic reaction Time Seen by Provider: 06/28/24 20:20 Source: patient Mode of arrival: ambulatory Limitations: no limitations History of Present Illness: 39-year-old male states he was stung by wasp on his left lower abdomen 2 days ago he states he had some increasing erythema and warmth to touch with pain. He denies any shortness of breath denies any throat swelling states he is taken some Benadryl with no improvement. Associated symptoms: Deny chills, fever(s), nausea or vomiting Review of Systems Const: Denies: fever(s), chills, body aches or change in appetite ENMT: Denies: throat pain or dental pain Card: Denies: chest pain Resp: Denies: dyspnea GI: Denies: abdominal pain, nausea, vomiting or diarrhea Musc: Denies: neck pain or back pain Skin/Breast: Reports: rash and erythema Neuro: Denies: headache(s) PFSH ED PFSH: Medical History Morbid obesity with BMI of 45.0-49.9, adult GERD (gastroesophageal reflux disease) History of nephrolithiasis Hypertension Bilateral pulmonary embolism Hx of renal cell cancer Intermittent explosive disorder Type 2 diabetes mellitus Surgical History History of lithotripsy History of left radical nephrectomy (2013) for Renal Cell CA Hx of cholecystectomy (2011) Family History Mother , AT AGE 41 Cancer BREAST Father No problems noted. Social History Smoking and tobacco/nicotine status: unknown if used tobacco/nicotine Quit status (tobacco/nicotine): has quit using Year quit tobacco: 2021 Former quit date comment: smoked x15 years Second hand smoke exposure: Yes (At work.) Alcohol intake: former Substance/Drug Use: former Adopted: No Caregiver/support person: No Lives independently: Yes Household members: family Housing: House Marital status: Number of children: 1 Highest education level completed: GED or Equivalent service: No Current occupational status: employed Physical Exam Const: COMMON NORMALS: no acute distress, patient oriented x3 and healthy appearing HENMT: COMMON NORMALS: normocephalic and atraumatic HEAD & SCALP: normocephalic and atraumatic Eye: COMMON NORMALS: conjunctivae normal CONJUNCTIVA: Yes conjunctivae normal Neck/C-Spine: COMMON NORMALS: full ROM and supple Chest: COMMONS NORMALS: normal inspection of the chest Resp: COMMON NORMALS: normal respiratory effort Cardio: COMMON NORMALS: regular rate, regular rhythm and No murmurs present (Cardio) RATE: regular rate RHYTHM: regular rhythm GI: COMMON NORMALS: Soft to palpation, non-tender and no masses PALPATION: Yes Soft to palpation OTHER: Erythema noted to left lower abdomen is warm to touch Extremity: COMMON NORMALS: normal to inspection and full ROM Neuro: COMMON NORMALS: patient oriented x3, moves all extremities and no focal motor deficits Psych: COMMON NORMALS: mental status grossly normal, Normal thought process present and cooperative THOUGHT PROCESS: Normal thought process present Skin: COMMON NORMALS: no rashes or lesions noted and no wounds GENERAL SKIN EXAM: no rashes or lesions noted Course Vital Signs: Vital signs: Vital Signs Temperature 98.2 F 06/28/24 20:12 Pulse Rate 77 06/28/24 20:12 Respiratory Rate 18 06/28/24 20:12 Blood Pressure 172/106 06/28/24 20:12 Pulse Oximetry 97 06/28/24 20:12 MDM - Skin/Abscess/Foreign Bdy Medicial Decision Making Patient presents here with a wasp being likely localized allergic reaction with possible cellulitis we will start him on steroids along with antibiotics he is to take Benadryl at home as well return if worsening he understands agrees to plan No radiology studies performed this visit Discharge Plan Discharge Patient Disposition: Home Clinical Impression: Cellulitis, Sting, wasp Condition: Stable Prescriptions: New cephalexin 500 mg capsule 500 mg PO TID 7 Days Qty: 21 0RF prednisone 50 mg tablet 50 mg PO DAILY Qty: 5 0RF No Action Xarelto 20 mg tablet 20 mg PO DAILY Qty: 30 3RF Hold Instructions: Resume on 05/04/23. Rx Instructions: must administer with evening meal lisinopril 30 mg tablet 30 mg PO DAILY Qty: 90 1RF ondansetron 8 mg tablet,disintegrating 8 mg PO Q8H PRN (Reason: nausea and vomiting) 5 Days Qty: 15 0RF Discharge Orders: Discharge ED (Routine); Ordered 06/28/24 Ordered By: Wilfrido Orozco Discharge Diet: Advance as tolerated Discharge Activity: Resume usual activity Patient Instructions: Cellulitis (ED), Insect Bite or Sting (ED) Coding Level of Care Code ED Interactive Project Manager for Fabian Colón
[2024-06-28] MEDS: diphenhydrAMINE 50 mg Capsule PO (20:41)
[2024-06-28] MEDS: cephALEXin 500 mg Capsule PO (20:41)
[2024-06-28] MEDS: predniSONE 20 mg Tablet 60 MG PO (20:42)
[2024-06-28 20:47] VITALS: BP 156/101; PULSE 75; RESP 16; TEMP 36.8; O2SAT 98
== END 2024-06-28 20:48 | disposition home or self-care (01) ==
PROVIDERS: Emergency Provider Emergency Medicine
DX: T63.461A Toxic effect of venom of wasps, accidental (unintentional), initial encounter (principal); L03.311 Cellulitis of abdominal wall; Z87.891 Personal history of nicotine dependence
CPT/HCPCS: 99283; J7512; Q0163

== ENCOUNTER 2024-08-03 21:42 | Emergency (ER) | payer MEDICARE, SELFPAY ==
[2024-08-03 22:00] VITALS: BP 127/98; PULSE 78; RESP 18; TEMP 36.9; O2SAT 95; BMI 38.6
--- NOTE | 2024-08-03 22:18 | W.ED.DENTAL ---
HPI - Dental/Oral General: Chief complaint: Dental/Oral Stated complaint: tooth pain Time Seen by Provider: 08/03/24 22:10 Source: patient Mode of arrival: ambulatory Limitations: no limitations History of Present Illness: Patient is a 39-year-old male presenting to the emergency department complaining of left upper dental pain onset today. Patient states he was eating around 1400 when he broke part of his tooth, and is unable to see his dentist until early next week. He also states he is worried that it will get infected now. Has not taken anything for pain. No fever, nausea or vomiting, or other symptoms reported at this time. MD Complaint: tooth pain and tooth injury Onset (ago): hour(s) Duration: constant Severity: moderate Associated symptoms: Denies ear or mastoid pain or fever(s) Related Data Previous Rx's Medication Instructions Recorded lisinopril 30 mg tablet 30 mg PO DAILY blood pressure #90 09/30/23 tabs rivaroxaban 20 mg tablet (Xarelto) 20 mg PO DAILY pulmonary emboli 09/30/23 #30 tabs ondansetron 8 mg disintegrating 8 mg PO Q8H PRN nausea and 07/18/24 tablet vomiting #10 tabs lidocaine HCl 2 % mucosal solution 10 ml mucous membrane DAILY PRN 08/03/24 (Lidocaine Viscous) pain #100 mL Allergies Allergy/AdvReac Type Severity Reaction Status Date / Time No Known Allergies Allergy Verified 07/18/24 16:59 Review of Systems General: Reports: 10 or more systems reviewed and unremarkable except in HPI and below Const: Denies: fever(s), chills or fatigue Eyes: Denies: change in vision ENMT: Reports: dental pain; Denies: throat pain, ear or mastoid pain or nasal discharge Card: Denies: chest pain, palpitations, swelling of feet/ankles or lightheadedness Resp: Denies: dyspnea, productive cough or wheezing GI: Denies: abdominal pain, nausea, vomiting, diarrhea or constipation : Denies: flank pain, difficulty urinating, dysuria or urinary frequency Musc: Denies: neck pain, back pain or joint pain Skin/Breast: Denies: rash Neuro: Denies: headache(s), numbness in extremities or weakness in extremities PFS ED PFSH: Medical History Morbid obesity with BMI of 45.0-49.9, adult GERD (gastroesophageal reflux disease) History of nephrolithiasis Hypertension Bilateral pulmonary embolism Hx of renal cell cancer Intermittent explosive disorder Type 2 diabetes mellitus Surgical History History of lithotripsy History of left radical nephrectomy (2013) for Renal Cell CA Hx of cholecystectomy (2011) Family History Mother , AT AGE 41 Cancer BREAST Father No problems noted. Social History Smoking and tobacco/nicotine status: unknown if used tobacco/nicotine Quit status (tobacco/nicotine): has quit using Year quit tobacco: 2021 Former quit date comment: smoked x15 years Second hand smoke exposure: Yes (At work.) Alcohol intake: former Substance/Drug Use: former Adopted: No Caregiver/support person: No Lives independently: Yes Household members: family Housing: House Marital status: Number of children: 1 Highest education level completed: GED or Equivalent service: No Current occupational status: employed Physical Exam Const: COMMON NORMALS: no acute distress and no limitations GENERAL APPEARANCE: cooperative, comfortable and well developed ORIENTATION/CONSCIOUSNESS: Yes awake HENMT: COMMON NORMALS: normocephalic, atraumatic and hearing grossly normal bilaterally HEAD & SCALP: normocephalic and atraumatic TEETH & GINGIVA: Yes abnormal tooth and associated gingiva upper left tender and enamel fractured and Yes fair dentition Eye: COMMON NORMALS: Equal, round and reactive pupils present, EOMs intact bilaterally and conjunctivae normal CONJUNCTIVA: Yes conjunctivae normal PUPIL: Yes Equal, round and reactive pupils present Neck/C-Spine: COMMON NORMALS: full ROM, supple and no JVD Resp: COMMON NORMALS: normal respiratory effort, No retractions, No use of accessory muscles and clear to auscultation bilaterally AUSCULTATION: clear to auscultation bilaterally Cardio: COMMON NORMALS: no JVD, regular rate, regular rhythm, No clicks present (Cardio), No murmurs present (Cardio) and No rub (Cardio) RATE: regular rate RHYTHM: regular rhythm Extremity: COMMON NORMALS: normal to inspection, full ROM and capillary refill normal Skin: COMMON NORMALS: no rashes or lesions noted GENERAL SKIN EXAM: no rashes or lesions noted Course Vital Signs: Vital signs: Vital Signs Temperature 98.4 F 08/03/24 22:00 Pulse Rate 78 08/03/24 22:00 Respiratory Rate 18 08/03/24 22:00 Blood Pressure 127/98 08/03/24 22:00 Pulse Oximetry 95 08/03/24 22:00 Oxygen Delivery Me thod Room Air 08/03/24 22:00 MDM - Dental/Oral Medical Decision Making Patient presented after fracturing tooth earlier today. Has a dentist, but cannot see until next week. Examination did reveal small fracture of the left upper molar, will treat with topical lidocaine as there does not appear to be any signs of infection or pulp exposure. He is however instructed to return with any new or concerning symptoms, will be given some topical lidocaine prior to discharge. No radiology studies performed this visit Discharge Plan Discharge Patient Disposition: Home Clinical Impression: Fracture of tooth Condition: Stable Prescriptions: New Lidocaine Viscous 2 % solution 10 ml mucous membrane DAILY PRN (Reason: pain) Qty: 100 0RF No Action Xarelto 20 mg tablet 20 mg PO DAILY Qty: 30 3RF Hold Instructions: Resume on 05/04/23. Rx Instructions: must administer with evening meal lisinopril 30 mg tablet 30 mg PO DAILY Qty: 90 1RF ondansetron 8 mg tablet,disintegrating 8 mg PO Q8H PRN (Reason: nausea and vomiting) Qty: 10 0RF Discharge Orders: Discharge ED (Routine); Ordered 08/03/24 Ordered By: Mirza Fong Referrals: Shannan Gutierrez PA [Primary Care Provider] - Discharge Diet: Usual diet Discharge Activity: Increase activity as tolerated Patient Instructions: Chipped or Broken Tooth Activity Restrictions/Additional Instructions: Follow-up with dentist early next week as discussed. Apply topical lidocaine for relief. Take Tylenol or ibuprofen. Avoid any exposure to cold foods or liquids. Return with any new or worsening. Coding Level of Care Code ED Radiation Oncology Nurse for Fabian Colón
[2024-08-03] MEDS: lidocaine 2% viscous 15 mL UDC 10 ML MUCOUS MEM (22:26)
[2024-08-03 22:30] VITALS: BP 155/92; PULSE 82; RESP 14; O2SAT 96
== END 2024-08-03 22:31 | disposition home or self-care (01) ==
PROVIDERS: Emergency Provider Physician Assistant; PCP Physician Assistant
DX: S02.5XXA Fracture of tooth (traumatic), initial encounter for closed fracture (principal); Z87.891 Personal history of nicotine dependence; I10 Essential (primary) hypertension; E11.9 Type 2 diabetes mellitus without complications; Z85.528 Personal history of other malignant neoplasm of kidney; X58.XXXA Exposure to other specified factors, initial encounter
CPT/HCPCS: 99283

== ENCOUNTER 2024-08-28 20:59 | Emergency (ER) | payer SELFPAY ==
--- NOTE | 2024-08-28 21:00 | XRR_ITS ---
PROCEDURE INFORMATION: Exam: XR Right Knee Exam date and time: 08/28/2024 9:14 PM Age: 39 years old Clinical indication: Injury or trauma; Fall; Blunt trauma; Knee; Right; Additional info: Fall/pain TECHNIQUE: Imaging protocol: Radiologic exam of the right knee. Views: 3 views. COMPARISON: No relevant prior studies available. FINDINGS: Bones/joints: No acute fracture or dislocation. Mild knee effusion. Soft tissues: Mild suprapatellar soft tissue swelling. XR/XR knee RT 3V* [id number] IMPRESSION: 1. No acute fracture or dislocation. 2. Suprapatellar soft tissue swelling with limited assessment of the quadriceps tendon.
[2024-08-28 21:06] VITALS: BP 167/96; PULSE 81; RESP 16; TEMP 36.7; O2SAT 96
--- NOTE | 2024-08-28 21:17 | W.ED.EXTPRO ---
HPI - Extremity Problem General: Chief complaint: Extremity Injury, Lower Stated complaint: Fall, Right Knee pain Time Seen by Provider: 08/28/24 21:03 Source: patient Mode of arrival: ambulatory Limitations: no limitations History of Present Illness: 39-year-old male states he is moving with a antonella states it slipped and he had 80 pounds loaded and it came back and struck him on the right knee he has a contusion to his knee he states he has pain as well states pain sharp in nature rates it a 5 out of 10 it is worse with walking states he feels like his knee pops 2. Denies any other injuries Associated symptoms: Deny chest pain, fever(s) or rash Related Data Previous Rx's Medication Instructions Recorded lisinopril 30 mg tablet 30 mg PO DAILY blood pressure #90 09/30/23 tabs rivaroxaban 20 mg tablet (Xarelto) 20 mg PO DAILY pulmonary emboli 09/30/23 #30 tabs ondansetron 8 mg disintegrating 8 mg PO Q8H PRN nausea and 07/18/24 tablet vomiting #10 tabs lidocaine HCl 2 % mucosal solution 10 ml mucous membrane DAILY PRN 08/03/24 (Lidocaine Viscous) pain #100 mL Allergies Allergy/AdvReac Type Severity Reaction Status Date / Time No Known Allergies Allergy Verified 08/28/24 21:10 Review of Systems Const: Denies: fever(s), chills, body aches or change in appetite ENMT: Denies: throat pain or dental pain Card: Denies: chest pain Resp: Denies: dyspnea GI: Denies: abdominal pain, nausea, vomiting or diarrhea Musc: Reports: extremity pain; Denies: neck pain or back pain Skin/Breast: Denies: rash Neuro: Denies: headache(s) PFS ED PFSH: Medical History Morbid obesity with BMI of 45.0-49.9, adult GERD (gastroesophageal reflux disease) History of nephrolithiasis Hypertension Bilateral pulmonary embolism Hx of renal cell cancer Intermittent explosive disorder Type 2 diabetes mellitus Surgical History History of lithotripsy History of left radical nephrectomy (2013) for Renal Cell CA Hx of cholecystectomy (2011) Family History Mother , AT AGE 41 Cancer BREAST Father No problems noted. Social History Smoking and tobacco/nicotine status: unknown if used tobacco/nicotine Quit status (tobacco/nicotine): has quit using Year quit tobacco: 2021 Former quit date comment: smoked x15 years Second hand smoke exposure: Yes (At work.) Alcohol intake: former Substance/Drug Use: former Adopted: No Caregiver/support person: No Lives independently: Yes Household members: family Housing: House Marital status: Number of children: 1 Highest education level completed: GED or Equivalent service: No Current occupational status: employed Physical Exam Const: COMMON NORMALS: no acute distress, patient oriented x3 and healthy appearing HENMT: COMMON NORMALS: normocephalic and atraumatic HEAD & SCALP: normocephalic and atraumatic Neck/C-Spine: COMMON NORMALS: full ROM and supple Chest: COMMONS NORMALS: normal inspection of the chest Resp: COMMON NORMALS: normal respiratory effort Cardio: COMMON NORMALS: regular rate RATE: regular rate Extremity: COMMON NORMALS: full ROM NARRATIVE EXTREMITY EXAM: Contusion noted to anterior right knee no obvious deformity. Neuro: COMMON NORMALS: patient oriented x3, moves all extremities and no focal motor deficits Psych: COMMON NORMALS: mental status grossly normal, Normal thought process present and cooperative THOUGHT PROCESS: Normal thought process present Skin: COMMON NORMALS: no rashes or lesions noted and no wounds GENERAL SKIN EXAM: no rashes or lesions noted Course Vital Signs: Vital signs: Vital Signs Temperature 98.1 F 08/28/24 21:06 Pulse Rate 81 08/28/24 21:06 Respiratory Rate 16 08/28/24 21:06 Blood Pressure 167/96 08/28/24 21:06 Pulse Oximetry 96 08/28/24 21:06 MDM - Extremity (Nontraumatic) Medical Decision Making Patient presents here with a knee contusion x-ray is negative he is stable for discharge is to follow-up return if worsening he understands agrees to plan Medical Records I reviewed the patient's medical records. XR interpretation done by ED provider, pending radiology final review ED provider radiology interpretation(s): xr r knee: no acute fx Discharge Plan Discharge Patient Disposition: Home Clinical Impression: Contusion of right knee Condition: Stable Prescriptions: No Action Xarelto 20 mg tablet 20 mg PO DAILY Qty: 30 3RF Hold Instructions: Resume on 05/04/23. Rx Instructions: must administer with evening meal lisinopril 30 mg tablet 30 mg PO DAILY Qty: 90 1RF ondansetron 8 mg tablet,disintegrating 8 mg PO Q8H PRN (Reason: nausea and vomiting) Qty: 10 0RF Lidocaine Viscous 2 % solution 10 ml mucous membrane DAILY PRN (Reason: pain) Qty: 100 0RF Discharge Orders: Discharge ED (Routine); Ordered 08/28/24 Ordered By: Wilfrido Orozco Referrals: Shannan Gutierrez PA [Primary Care Provider] - 4-7 days Discharge Diet: Advance as tolerated Discharge Activity: Increase activity as tolerated Patient Instructions: Contusion in Adults (ED), Knee Pain (ED) Coding Level of Care Code ED Cs Associate for Fabian Colón
[2024-08-28 21:31] VITALS: BP 141/92; PULSE 89; O2SAT 97
== END 2024-08-28 21:33 | disposition home or self-care (01) ==
PROVIDERS: Emergency Provider Emergency Medicine; PCP Physician Assistant
DX: S80.01XA Contusion of right knee, initial encounter (principal); Z87.891 Personal history of nicotine dependence; I10 Essential (primary) hypertension; E11.9 Type 2 diabetes mellitus without complications; Z85.528 Personal history of other malignant neoplasm of kidney; W20.8XXA Other cause of strike by thrown, projected or falling object, initial encounter
CPT/HCPCS: 73562; 99283

== ENCOUNTER → 2024-11-28 14:48 | Outpatient (BNVA) | payer MEDICARE, SELFPAY | PROVIDERS: PCP Physician Assistant; Visit Provider Family Medicine | DX: R51.9 Headache, unspecified (principal) | CPT/HCPCS: 87426 ==

== ENCOUNTER 2024-12-13 19:49 | Emergency (ER) | payer OTHER, SELFPAY ==
[2024-12-13 20:28] VITALS: BP 164/100; PULSE 90; RESP 18; TEMP 36.6; O2SAT 96; BMI 44.7
--- NOTE | 2024-12-13 20:47 | XRR_ITS ---
PROCEDURE INFORMATION: Exam: XR Left Foot Exam date and time: 12/13/2024 9:37 PM Age: 39 years old Clinical indication: Pain; Foot; Left; Additional info: Foot pain, run over by forklift TECHNIQUE: Imaging protocol: Radiologic exam of the left foot. Views: 3 or more views. COMPARISON: CR XR knee RT 3V* [id number] 08/28/2024 9:14 PM FINDINGS: Bones/joints: Mildly displaced fracture of the 1st proximal phalanx with intra-articular extension into the metatarsophalangeal joint. No dislocation. Small plantar calcaneal enthesophyte. Soft tissues: Moderate soft tissue swelling along the forefoot. XR/XR foot LT min 3V* [id number] IMPRESSION: 1. Mildly displaced fracture of the 1st proximal phalanx with extension into the MTP joint. 2. Moderate soft tissue swelling in the forefoot.
--- NOTE | 2024-12-13 21:44 | W.ED.LOWEXIN ---
HPI - Extremity Injury (Lower) General: Chief Complaint: Extremity Injury, Lower Stated Complaint: Left foot injury Time Seen by Provider: 12/13/24 21:41 Source: patient Mode of arrival: ambulatory Limitations: no limitations History of Present Illness: Patient is a 39-year-old male who presents to ED today for evaluation of a right foot injury that he sustained earlier today at work. He states he was struck by a forklift from behind and his feet then hyperflexed when he was pushed forward. Noticing bruising and swelling near his great toe. MD complaint: foot injury Onset (ago): hour(s) Injury: Right: foot Type of Injury: hyperflexion Place: work Severity: moderate Relieving factors: immobilization Exacerbating factors: weight bearing, movement and palpation Associated symptoms: Reports no associated symptoms Other symptoms: none Related Data Previous Rx's Medication Instructions Recorded hydrocodone 5 mg-acetaminophen 325 1 tab PO Q6H PRN pain #14 tabs 12/13/24 mg tablet Allergies Allergy/AdvReac Type Severity Reaction Status Date / Time No Known Allergies Allergy Verified 12/13/24 20:32 Review of Systems Musc: Reports: extremity pain (R foot) and extremity swelling (R foot) Neuro: Denies: numbness in extremities or sensory changes PFSH ED PFSH: Medical History Morbid obesity with BMI of 45.0-49.9, adult GERD (gastroesophageal reflux disease) History of nephrolithiasis Hypertension Bilateral pulmonary embolism Hx of renal cell cancer Intermittent explosive disorder Type 2 diabetes mellitus Surgical History History of lithotripsy History of left radical nephrectomy (2013) for Renal Cell CA Hx of cholecystectomy (2011) Family History Mother , AT AGE 41 Cancer BREAST Father No problems noted. Social History Smoking and tobacco/nicotine status: never used tobacco/nicotine Quit status (tobacco/nicotine): has quit using Year quit tobacco: 2021 Former quit date comment: smoked x15 years Second hand smoke exposure: Yes (At work.) Alcohol intake: former Substance/Drug Use: former Adopted: No Caregiver/support person: No Lives independently: Yes Household members: family Housing: House Marital status: Number of children: 1 Highest education level completed: GED or Equivalent service: No Current occupational status: employed Physical Exam Const: COMMON NORMALS: no acute distress, no limitations, alert and well nourished Extremity: COMMON NORMALS: capillary refill normal and no calf tenderness GENERAL: Yes normal exam except as noted RIGHT LOWER EXTREMITY: Yes foot & digits (significant edema/ecchymosis to base of R great toe) Right foot and digits: Yes neurovascular exam (normal) Neuro: COMMON NORMALS: moves all extremities, no focal motor deficits and no sensory deficits noted SENSORIUM/ORIENTATION: Yes alert Course Vital Signs: Vital signs: Vital Signs Temperature 97.9 F 12/13/24 20:28 Pulse Rate 90 12/13/24 20:28 Respiratory Rate 18 12/13/24 20:28 Blood Pressure 164/100 12/13/24 20:28 Pulse Oximetry 96 12/13/24 20:28 MDM - Extremity Injury (Lower) Medical Decision Making XR showing a fracture involving the proximal phalanx of his right great toe. Patient will be splinted, crutches with instructions for nonweightbearing, and will get him prompt follow up with podiatry. XR interpretation done by ED provider, pending radiology final review Discharge Plan Discharge Patient Disposition: Home Clinical Impression: Closed fracture of proximal phalanx of right great toe Condition: Stable Prescriptions: New hydrocodone-acetaminophen 5-325 mg tablet 1 tab PO Q6H PRN (Reason: pain) Qty: 14 0RF Discharge Orders: Discharge ED (Routine); Ordered 12/13/24 Ordered By: Radhika Jose Referrals: Shannan Gutierrez PA [Primary Care Provider] - Patient Instructions: Toe Fracture (ED), Opioid Safety, Pain Management Activity Restrictions/Additional Instructions: As we discussed, you need to stay in your splint at all times until your follow-up appointment with podiatry. Ice and elevate your extremity is much as possible to help with swelling. You may take your pain medication sparingly to help with discomfort. Utilize your crutches for nonweightbearing until told otherwise by podiatry. You should hear from case management tomorrow or on Tuesday to help set you up with this follow-up appointment. Coding Level of Care Code ED Grounds Keeper for Fabian Colón
[2024-12-13] MEDS: HYDROcodone-acetaminophen 5-325 mg Tablet 2 TAB PO (22:20)
[2024-12-13 22:36] VITALS: BP 170/94; PULSE 88; O2SAT 95
--- NOTE | 2024-12-17 07:55 | DCPLANNER ---
Message sent to Podiatry for urgent follow up
== END 2024-12-13 22:38 | disposition home or self-care (01) ==
PROVIDERS: Emergency Provider Physician Assistant; PCP Physician Assistant
DX: S92.412A Displaced fracture of proximal phalanx of left great toe, initial encounter for closed fracture (principal); Z87.891 Personal history of nicotine dependence; E11.9 Type 2 diabetes mellitus without complications; I10 Essential (primary) hypertension; Z85.53 Personal history of malignant neoplasm of renal pelvis; X58.XXXA Exposure to other specified factors, initial encounter
CPT/HCPCS: 29515; 73630; 99283; E0114

== ENCOUNTER 2024-12-17 06:00 | Outpatient (CLI) | payer OTHER, SELFPAY | END 2024-12-17 06:01 | disposition home or self-care (01) | LOC: SPT 12-18 09:08 | PROVIDERS: Visit Provider Orthopaedic Surgery | DX: Z46.89 Encounter for fitting and adjustment of other specified devices (principal); S92.411S Displaced fracture of proximal phalanx of right great toe, sequela; X58.XXXS Exposure to other specified factors, sequela | CPT/HCPCS: L4361 ==

== ENCOUNTER → 2024-12-27 13:57 | Outpatient (BNVA) | payer OTHER, SELFPAY | PROVIDERS: Visit Provider Podiatrist Foot & Ankle Surgery | DX: S92.412A Displaced fracture of proximal phalanx of left great toe, initial encounter for closed fracture (principal); V83.9XXA Unspecified occupant of special industrial vehicle injured in nontraffic accident, initial encounter | CPT/HCPCS: 73630 ==

== ENCOUNTER 2025-01-18 07:42 | Day surgery (SDC) | payer OTHER, SELFPAY ==
--- NOTE | 2025-01-18 | XR_ITS ---
WS: [id number] C-arm fluoroscopy views of the toes of the left foot, 01/18/2025 Clinical Data: JARRETT PICS Comparison: Left foot, 12/27/2024 Findings: Dr. Weaver reduce the fracture of the base of left toe first proximal phalanx with a transverse pin. XR/XR toe LT min 2V [id number] Impression: Internal fixation of fracture of base of left toe first proximal phalanx.
[2025-01-18 08:06] VITALS: BMI 43.4
--- NOTE | 2025-01-18 08:36 | ANES.PREANE2 ---
Pre-Anesthetic Assessment Height/Weight: Height 1.83 m Weight 145.15 kg O2 Del Method Room Air 01/18/25 08:06 Preop Diagnosis: Left great toe fracture Operation Date: 01/18/25 09:15 Proposed Procedures p ORIF Toe ORIF Zacdeucejacinda(Left) - MIN MitchellM Was Beta Huy taken within 24 hours: N/A Was Clonidine taken within 24 hours: N/A Last intake: Intake Last Liquid Date 01/17/25 Last Liquid Time 18:00 Last Solid Date 01/17/25 Last Solid Time 18:00 Last Intake: 18:00 Social No alcohol and No tobacco Pt. denies ETOH, vaping, smoking, marijuana. Exam alert, oriented x 3, clear to auscultation bilaterally and regular rate & rhythm Airway Mallampati: Class III Dentition: other (Missing upper incisor, denies loose teeth) Pulmonary None reported Recent URI, treated now asymptomatic. CV/HEM Hypertension Renal cell cancer s/p nephrectomy. GI Gastroesophageal Reflux Disease well controlled with PPI, asymptomatic Metabolic Diabetes Mellitus and Morbid Obesity Denies taking medication. BMI 43 Musc/skel None reported Neuropsych None reported Anesthetic Plan ASA status: 3 Anesthesia: MAC Medications/Allergies Home Medications ?Medication ?Instructions ?Recorded ?Confirmed ?Last Taken ?Type CAM boot #1 ea 12/17/24 01/11/25 Unknown Rx lisinopril 30 mg tablet 30 mg PO DAILY 01/10/25 01/18/25 01/17/25 History omeprazole 40 mg capsule,delayed 40 mg PO DAILY 01/10/25 01/18/25 01/17/25 History release rivaroxaban 20 mg tablet (Xarelto) 20 mg PO DAILY 01/10/25 01/18/25 01/09/25 History Allergies Allergy/AdvReac Type Severity Reaction Status Date / Time No Known Allergies Allergy Verified 01/11/25 11:53 [facility] Anesthesia Medical History Morbid obesity with BMI of 45.0-49.9, adult GERD (gastroesophageal reflux disease) History of nephrolithiasis Hypertension Bilateral pulmonary embolism Hx of renal cell cancer Intermittent explosive disorder Type 2 diabetes mellitus Surgical History History of lithotripsy History of left radical nephrectomy (2013) for Renal Cell CA Hx of cholecystectomy (2011) Family History Mother , AT AGE 41 Cancer BREAST Father No problems noted. Social History Smoking and tobacco/nicotine status: never used tobacco/nicotine Quit status (tobacco/nicotine): has quit using Year quit tobacco: 2021 Former quit date comment: smoked x15 years Second hand smoke exposure: Yes (At work.) Alcohol intake: former Substance/Drug Use: former Adopted: No Caregiver/support person: No Lives independently: Yes Household members: family Housing: House Marital status: Number of children: 1 Highest education level completed: GED or Equivalent service: No Current occupational status: employed Data Anesthesia Cardiac Studies: No Data to Display
--- NOTE | 2025-01-18 08:52 | W.PM.OPSUD ---
Surgery/Procedure H&P Update DATE OF PROCEDURE: January 18, 2025 DATE H&P PERFORMED: 12/27/24 H&P UPDATE INFORMATION: I have reviewed H&P completed within last 30 days, I have examined patient prior to procedure, No changes to prior documentation and H&P is in [facility] EMR on date indicated PREOP DIAGNOSIS: Left great toe fracture PLANNED PROCEDURE: Operation Date: 01/18/25 09:15 Proposed Procedures p ORIF Toe ORIF Av(Left) - Emerson Weaver DPM
[2025-01-18] MEDS: sodium chloride 0.9% 1,000 ML 30 ML IV (09:08)
[2025-01-18] MEDS: ceFAZolin 3,000 MG in sodium chloride 0.9% (100 ml) 100 ML 200 MG IV (09:10)
[2025-01-18] MEDS: BUPivacaine liposome 13.3 mg/mL SDV 20 mL 266 MG INFILTRATI (09:26)
[2025-01-18] MEDS: BUPivacaine 0.5% INJ 30 mL XX (09:27)
[2025-01-18 09:54] VITALS: BP 125/76; PULSE 77; RESP 17; TEMP 36.3; O2SAT 97
[2025-01-18 09:59] VITALS: BP 116/74; PULSE 79; RESP 18; O2SAT 97
[2025-01-18 10:04] VITALS: BP 136/86; PULSE 77; RESP 18; O2SAT 98
--- NOTE | 2025-01-18 10:04 | P.OP_ITS ---
Operative Report Date of procedure: January 18, 2025 Pre-op diagnosis: Accident caused by forklift, initial encounter V83.9XXA and Closed displaced fracture of proximal phalanx of left great toe, initial encounter S92.412A Post-op diagnosis: Accident caused by forklift, initial encounter V83.9XXA and Closed displaced fracture of proximal phalanx of left great toe, initial encounter S92.412A Procedure done: Open reduction internal fixation right hallux. CPT code 50310 Implants: 4-0 Vicryl, 4-0 nylon, 2.0 mm headless partially-threaded cannulated screw x 2 [place] 28 Surgeon: Emerson Weaver DPM Tow Motor Operator: Radhika Mcclendon Estimated blood loss: 1 29 IV fluids: See intraoperative documentation Urine output: No urine output Complications: No complications Brief History: X-ray left foot shows a displaced fracture is intra-articular of the lateral condyle at the base of the proximal phalanx left great toe given the amount of displacement greater than 3 mm in an articular nature with step-off on the articular surface patient wished to undergo ORIF to reduce the fracture to its anatomic alignment he prefers this over conservative management, I informed the patient that even with ORIF and anatomic reduction he may still experience posttraumatic arthritis down the road his in agreements. I reviewed at length with the patient, the risks, potential complications, benefits, alternatives, expectations, and typical outcomes associated with the surgery. The risks and potential complications were explained in detail, including but not limited to infection, wound dehiscence or soft tissue complications, bleeding and hematoma, chronic edema, neuritis or nerve damage producing numbness or chronic pain, CRPS, failure to relieve pain or worsening pain, thick / painful / unsightly scar, limited motion / stiffness, malposition, delayed union, malunion, or nonunion, fracture, reaction to implants, anesthetic complications, venous thromboembolism, and deformity recurrence. I discussed the notion of no regrets with the patient as it pertains to complications and outcomes. The patient seemed to understand the nature of the proposed care and required conval escence. They asked appropriate questions, answered to their satisfaction. They are aware no guarantees can be made as to a satisfactory outcome and they understand there may be other possible unforeseen complications or outcomes not listed here that will be treated accordingly if they arise. There were no written or implied guarantees given to the patient. They gave informed consent to proceed. Procedure: Under mild sedation the patient was brought to the operating room and remained on the gurney in supine position. A timeout was performed. Anesthesia was then administered by the anesthesia service. Local anesthesia was injected by myself consisting of 20 cc of 0.5% Marcaine plain in a left West block fashion. An additional 20 cc of Exparel subcutaneously in a grid like fashion per manufacture recommendation on technique was infiltrated proximal to the operative site of the left foot. Well-padded pneumatic tourniquet was applied t o the left ankle. The left lower extremity was scrubbed, prepped and draped utilizing normal aseptic technique. Left foot was exanguinated with an Esmarch bandage and tourniquet inflated to 250 mmHg. Attention was directed to the dorsal lateral aspect of the left hallux proximal phalanx base where a linear longitudinal incision was made lateral and parallel to the extensor hallucis longus tendon through skin with #15 blade with dissection carried down to the layer of periosteum utilizing sharp and blunt technique, care was taken to retract neurovascular and tendinous structures. All bleeders were ligated and cauterized as necessary. Fracture was identified, curettage of hematoma, reduced and fixated utilizing standard AO technique with 2 interfrag screws these were [place] 2 mm partially-threaded cannulated screws with excellent bony apposition and compression noted. Smooth range of motion of the left first metatarsal phalangeal joint was appreciated intraoperatively. C arm was utilized in AP oblique and lateral views to confirm hardware not violating the metatarsal phalangeal joint and were noted to be of appropriate length. No crepitus appreciated at the first metatarsal phalangeal joint and articular surface was congruent post reduction. The incision was irrigated with saline solution and closed in a layered fashion. Periosteum and subcutaneous tissue reapproximated with 4-0 Vicryl and skin with 4-0 nylon. The incision was then dressed with Xeroform, sterile gauze, Kerlix and Rickey wrap followed by application of a postop shoe. Tourniquet was deflated and a prompt hyperemic response is noted to the distal digits of the left foot. Patient tolerated the procedure and anesthesia well and was transferred to the PACU with vital signs stable and vascular status intact. Following a period of postoperative monitoring he will be discharged home without home care instructions and scheduled follow-up.
--- NOTE | 2025-01-18 10:04 | W.PM.BPON ---
Date of Procedure: 02/10/24 Surgeon: Emerson Weaver DPM [employer] Examiner(s): Radhika Mcclendon Procedure(s) performed: Open reduction internal fixation left great toe fracture Findings of the procedure(s): Proximal phalanx fracture left great toe Estimated blood loss: 1 mL Specimen(s) removed: No specimens Post-operative diagnosis: Proximal phalanx fracture left great toe
[2025-01-18] MEDS: albuterol 2.5 mg/3 mL Neb INHALATION (10:05)
[2025-01-18 10:09] VITALS: BP 125/81; PULSE 74; RESP 18; TEMP 36.2; O2SAT 99
[2025-01-18 10:17] VITALS: BP 119/64; PULSE 79; RESP 17; O2SAT 100
[2025-01-18 10:45] VITALS: BP 146/77; PULSE 68; RESP 18; O2SAT 100
--- NOTE | 2025-01-18 11:00 | ANE.PACU2 ---
Inpatient post-anesthesia follow up: Airway intact: Yes Vital signs: Temperature 97.2 F Pulse Rate 68 Respiratory Rate 18 Blood Pressure 146/77 Pulse Oximetry 100 Oxygen Delivery Me thod Room Air Oxygen Flow Rate Fraction of Inspir ed Oxygen Hydration adequate: Yes Nausea and vomiting: No Pain level: 1 Mental status: Baseline
== END 2025-01-18 11:00 | disposition home or self-care (01) ==
PROVIDERS: PCP Physician Assistant; Visit Provider Podiatrist Foot & Ankle Surgery
PROC: (CPT 28505; principal; 2025-01-18 09:05)
DX: S92.412A Displaced fracture of proximal phalanx of left great toe, initial encounter for closed fracture (principal); V83.9XXA Unspecified occupant of special industrial vehicle injured in nontraffic accident, initial encounter; E66.01 Morbid (severe) obesity due to excess calories; Z68.41 Body mass index [BMI] 40.0-44.9, adult; K21.9 Gastro-esophageal reflux disease without esophagitis; I10 Essential (primary) hypertension; Z86.711 Personal history of pulmonary embolism; Z85.53 Personal history of malignant neoplasm of renal pelvis; Z90.5 Acquired absence of kidney; E11.9 Type 2 diabetes mellitus without complications; Z90.49 Acquired absence of other specified parts of digestive tract; Z87.891 Personal history of nicotine dependence; Z79.899 Other long term (current) drug therapy
CPT/HCPCS: 28505; 73660; 76000; A7003; C1713; C9290; J0690; J2250; J2704; J3010; J3490; J7030; J7613

== ENCOUNTER 2025-01-26 04:09 | Emergency (ER) | payer OTHER, SELFPAY ==
[2025-01-26 04:12] VITALS: BP 188/97; PULSE 79; RESP 16; TEMP 36.6; O2SAT 96; BMI 48.8
--- NOTE | 2025-01-26 04:45 | W.ED.EAR ---
HPI - Ear Problem General: Chief complaint: Ear Stated complaint: Headache for 3 weeks Time Seen by Provider: 01/26/25 04:24 History of Present Illness: 39-year-old male presents emergency department with right ear pain. He was diagnosed with an ear infection about 2 weeks ago after having influenza. He took a round of Augmentin. He also took some steroids. It did not get better. He is not having any discharge from the ear. He has decreased hearing in that ear. He feels like there is fluid in the ear. Denies any sinus pain, headache, fever, altered mental status, neck swelling, confusion. Associated symptoms: Reports ear or mastoid pain; Denies tinnitus Related Data Home Medications ?Medication ?Instructions ?Recorded ?Confirmed lisinopril 30 mg tablet 30 mg PO DAILY 01/10/25 01/21/25 omeprazole 40 mg capsule,delayed 40 mg PO DAILY 01/10/25 01/21/25 release rivaroxaban 20 mg tablet (Xarelto) 20 mg PO DAILY 01/10/25 01/21/25 Previous Rx's ?Medication ?Instructions ?Recorded CAM boot #1 ea 12/17/24 cetirizine 10 mg capsule (Zyrtec) 10 mg PO DAILY 30 days #30 caps 01/26/25 fluticasone propionate 50 1 spray intranasal BID 10 days #16 01/26/25 mcg/actuation nasal grams spray,suspension (Flonase Allergy Relief) sodium bicarbonate-sodium 1 ea .Route BID 14 days #50 ea 01/26/25 chloride-neti pot nasal rinse with packet (NeilMed NasaFlo packet with sinus rinse device) sulfamethoxazole 800 1 tab PO BID 7 days #14 tabs 01/26/25 mg-trimethoprim 160 mg tablet (Bactrim DS) Allergies Allergy/AdvReac Type Severity Reaction Status Date / Time No Known Allergies Allergy Verified 01/21/25 17:01 Review of Systems General: Reports: 10 or more systems reviewed and unremarkable except in HPI and below ENMT: Reports: ear or mastoid pain and change in hearing; Denies: throat pain, enlarged tonsils, odynophagia, hoarseness, mouth pain, swelling of lips/tongue, bleeding gums, dry mouth, ear discharge, tinnitus, disequilibrium, nasal discharge, nasal congestion, nasal obstruction, post nasal drip or sinus pain [facility] ED PFSH: Medical History Morbid obesity with BMI of 45.0-49.9, adult GERD (gastroesophageal reflux disease) History of nephrolithiasis Hypertension Bilateral pulmonary embolism Hx of renal cell cancer Intermittent explosive disorder Type 2 diabetes mellitus Surgical History History of lithotripsy History of left radical nephrectomy (2013) for Renal Cell CA Hx of cholecystectomy (2011) Family History Mother , AT AGE 41 Cancer BREAST Father No problems noted. Social History Smoking and tobacco/nicotine status: never used tobacco/nicotine Quit status (tobacco/nicotine): has quit using Year quit tobacco: 2021 Former quit date comment: smoked x15 years Second hand smoke exposure: Yes (At work.) Alcohol intake: former Substance/Drug Use: former Adopted: No Caregiver/support person: No Lives independently: Yes Household members: family Housing: House Marital status: Number of children: 1 Highest education level completed: GED or Equivalent service: No Current occupational status: employed Physical Exam Const: COMMON NORMALS: no limitations, alert and well nourished EXAM LIMITATIONS: no altered mental status HENMT: COMMON NORMALS: normocephalic, atraumatic, external ears normal, EAC's normal and Normal external nose present HEAD & SCALP: normocephalic and atraumatic FACE & SINUS: normal facial exam, sinuses nontender and face symmetric; no abrasion, no crepitus, no ecchymosis, no erythema, no edema, no Facial tenderness on exam of face and sinuses and no TMJ findings NOSE: Normal external nose present and Normal nares present EXTERNAL EAR: Yes external ears normal EXTERNAL AUDITORY CANAL: EAC's normal TYMPANIC MEMBRANE: TM normal on the left; TM not normal on the right (Effusion, mild erythema. No evidence of rupture.) MOUTH: no muffled voice and no TMJ findings Eye: COMMON NORMALS: EOMs intact bilaterally, conjunctivae normal and no scleral icterus CONJUNCTIVA: Yes conjunctivae normal Neck/C-Spine: GENERAL: Yes normal visual inspection and Yes trachea midline Resp: COMMON NORMALS: normal respiratory effort, No use of accessory muscles and clear to auscultation bilaterally AUSCULTATION: clear to auscultation bilaterally Cardio: COMMON NORMALS: regular rate and regular rhythm RATE: regular rate RHYTHM: regular rhythm Extremity: COMMON NORMALS: normal to inspection Neuro: COMMON NORMALS: moves all extremities, no focal motor deficits and no sensory deficits noted SENSORIUM/ORIENTATION: Yes alert SPEECH: speech normal Psych: COMMON NORMALS: mental status grossly normal, Normal thought process present, cooperative, normal affect and speech normal SPEECH: Yes normal speech THOUGHT PROCESS: Normal thought process present Skin: COMMON NORMALS: no rashes or lesions noted, turgor normal and no jaundice GENERAL SKIN EXAM: no rashes or lesions noted and turgor normal Course Vital Signs: Vital signs: Vital Signs Temperature 97.8 F 01/26/25 04:12 Pulse Rate 79 01/26/25 04:12 Respiratory Rate 16 01/26/25 04:12 Blood Pressure 188/97 01/26/25 04:12 Pulse Oximetry 96 01/26/25 04:12 Oxygen Delivery Me thod Room Air 01/26/25 04:12 MDM - Ear Medical Decision Making Patient has right-sided ear effusion. He had mild tenderness in the right mastoid without any redness or warmth. No red flags on history. He has recently had a URI 2 weeks ago and completed a round of Augmentin which he finished about 4 days ago. It is unclear whether this is infectious, serous, allergic, etc. Patient is well-appearing and nontoxic today. He has asymptomatic hypertension but otherwise reassuring vitals. Explained to him that it is hard to tell based on the appearance whether this is infectious or not. I would tend to say its noninfectious involvement did not seem to help. They would like to try 1 more round of antibiotics to see if it helps before he sees a ear nose and throat doctor. Patient will be placed on Zyrtec, fluticasone, NeilMed sinus rinse her, Bactrim. No radiology studies performed this visit Discharge Plan Discharge Patient Disposition: Home Clinical Impression: Acute effusion of right ear Condition: Stable Prescriptions: New fluticasone propionate [Flonase Allergy Relief] 50 mcg/actuation spray,suspension 1 spray intranasal BID 10 Days Qty: 16 0RF Rx Instructions: administer into each nostril sulfamethoxazole-trimethoprim [Bactrim DS] 800-160 mg tablet 1 tab PO BID 7 Days Qty: 14 0RF Zyrtec 10 mg capsule 10 mg PO DAILY 30 Days Qty: 30 0RF NeilMed NasaFlo Packet With Rinse Device 1 ea .Route BID 14 Days Qty: 50 0RF Rx Instructions: 1 neilmed sinus rinser with 50 packs sodium bicarb/chloride Discontinued prednisone 10 mg tablet 30 mg PO DAILY 5 Days Qty: 15 0RF No Action (DME) CAM boot See Rx Instructions .Route .MEDSUPPLY Qty: 1 0RF Rx Instructions: As directed omeprazole 40 mg capsule,delayed release(DR/EC) 40 mg PO DAILY lisinopril 30 mg tablet 30 mg PO DAILY Xarelto 20 mg tablet 20 mg PO DAILY Discharge Orders: Discharge ED (Routine); Ordered 01/26/25 Ordered By: Javier Iverson Referrals: Shannan Gutierrez PA [Primary Care Provider] - 4-7 days (Right ear effusion) Patient Instructions: Earache (ED), Fluid In The Ear (Serous Otitis Media) (ED) Activity Restrictions/Additional Instructions: We are going to try Bactrim, antihistamine, NeilMed sinus rinse her, and Flonase. If this does not work you will need to see a clear coat sprayer. Please read your handout information. If you develop fever, severe headache, redness around or behind your ear, neck swelling or other emergent symptoms then return to the ER. Print Language: Romansh Coding Level of Care Code ED Litharge Supervisor for Fabian Colón
[2025-01-26 04:51] VITALS: BP 188/97; PULSE 88; RESP 18; O2SAT 96
[2025-01-26] MEDS: acetaminophen 500 mg Tablet 1000 MG PO (04:56)
[2025-01-26] MEDS: sulfamethoxazole-trimeth DS 160-800 mg Tablet 1 TAB PO (04:56)
[2025-01-26] MEDS: diphenhydrAMINE 50 mg Capsule PO (04:56)
== END 2025-01-26 05:01 | disposition home or self-care (01) ==
PROVIDERS: Emergency Provider Emergency Medicine; PCP Physician Assistant
DX: H92.01 Otalgia, right ear (principal); Z87.891 Personal history of nicotine dependence; E11.9 Type 2 diabetes mellitus without complications; I10 Essential (primary) hypertension; Z85.53 Personal history of malignant neoplasm of renal pelvis
CPT/HCPCS: 99283; Q0163

== ENCOUNTER → 2025-01-31 12:59 | Outpatient (BNVA) | payer OTHER, SELFPAY | PROVIDERS: PCP Physician Assistant; Visit Provider Podiatrist Foot & Ankle Surgery | DX: S92.402D Displaced unspecified fracture of left great toe, subsequent encounter for fracture with routine healing (principal); V83.9XXD Unspecified occupant of special industrial vehicle injured in nontraffic accident, subsequent encounter | CPT/HCPCS: 73630 ==

== ENCOUNTER → 2025-02-28 13:13 | Outpatient (BNVA) | payer OTHER, SELFPAY | PROVIDERS: PCP Physician Assistant; Visit Provider Podiatrist Foot & Ankle Surgery | DX: Z98.890 Other specified postprocedural states (principal) | CPT/HCPCS: 73630 ==

== ENCOUNTER 2025-11-10 07:56 | Emergency (ER) | payer OTHER, SELFPAY ==
[2025-11-10 08:04] VITALS: BP 154/98; PULSE 114; RESP 16; TEMP 36.8; O2SAT 94; BMI 36.6
--- OUTSIDE RECORDS SUMMARY | 2025-11-10 08:07 | XMS_ITS | Data Portability ---
Author Organization [facility] Deshawn Ortiz [facility] [place] [facility] Address [address] [address] Care Team Providers Care Sand Drier Name Role Phone SHANNAN GUTIERREZ Primary Care Provider [phone] Assessment No assessment recorded. Plan of Treatment Reminders Order Date Submit Date Provider Last Modified By Organization Details Last Modified Time Details Appointments None recorded. Lab None recorded. Referral otolaryngol ogist referral 2024 025 [email or web address] 2 Yanick Maravilla MD, [address] , [place], [address], 10:07:28 Procedures None recorded. Surgeries None recorded. Imaging None recorded. Medication Orders doxycycline hyclate 100 mg capsule 2024 025 [facility], [address], [place], [address], 5 05:01:46 Mounjaro 5 mg/0.5 mL subcutaneou s pen injector 2024 025 [facility] 15, [address], [place], [address], 5 11:06:54 Mounjaro 7.5 mg/0.5 mL subcutaneou s pen injector 2024 025 [facility] 15, [address], [place], [address], 11:06:53 fluticasone propionate 50 mcg/actuati on nasal spray,suspe nsion 2024 [facility] 15, [address], [place], [address], 5 10:22:09 cetirizine 10 mg tablet 2024 025 [facility] 15, [address], [place], [address], 5 10:21:56 cyclobenzap rine 10 mg tablet [email or web address] [facility], [address], [place], [address], 12:37:52 cefdinir 300 [address] capsule [address] [id number] [address] [facility], [place], [address], 20:17:25 neomycin-po lymyxin-hyd rocort 3.5 mg-10,000 unit/mL-1 % ear drops,susp [address] [id number], [address] [facility], [place], [address], 20:17:31 Patient TargetsNo targets recorded. Patient InstructionsNo instructions recorded. 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 r Acute otitis externa Referring Physician: Shannan Gutierrez, Family Medicine, Encounter Date: 02/22/2025 Results Created Date Observation Date Name Description Value Unit Range Abnormal Flag Note LastModifiedBy Organization Detail LastModifiedTime 06/13/20 25 06/13/2025 CBC WBC 7.4 x10 4.5-10 .5 Not Available [facility] [address] [facility] 1, [place], [address], 06/13/2025 10:50:23 06/13/20 25 06/13/2025 CBC RBC 4.61 x10 4.30-5 .90 Not Available [facility] [address] [facility] 1, [place], [address], 06/13/2025 10:50:23 06/13/20 25 06/13/2025 CBC HGB 13.8 g/dL 13.5-1 8.0 Not Available [facility] [address] [facility] 1, [place], [address], 06/13/2025 10:50:23 06/13/20 25 06/13/2025 CBC HCT 42.5 % 35.0-6 0.0 Not Available [facility] [address] [facility] 1, [place], [address], 06/13/2025 10:50:23 06/13/20 25 06/13/2025 CBC MCV 92.1 fL 80.0-9 9.9 Not Available [facility] [address] [facility] 1, [place], [address], 06/13/2025 10:50:23 06/13/20 25 06/13/2025 CBC MCH 30.0 pg 27.0-3 2.0 Not Available [facility] [address] [facility] 1, [place], [address], 06/13/2025 10:50:23 06/13/20 25 06/13/2025 CBC MCHC 32.6 g/dL 32.0-3 6.0 Not Available [facility] [address] [facility] 1, [place], [address], 06/13/2025 10:50:23 06/13/20 25 06/13/2025 CBC RDW 13.2 % 11.5-1 4.5 Not Available [facility] [address] [facility] 1, [place], [address], 06/13/2025 10:50:23 06/13/20 25 06/13/2025 CBC plt 310.3 x10 150.0- 451.0 Not Available [facility] [address] [facility] 1, [place], [address], 06/13/2025 10:50:23 06/13/20 25 06/13/2025 CBC lymphocytes % 32.2 % 20.0-5 0.0 Not Available [facility] [address] [facility] 1, [place], [address], 06/13/2025 10:50:23 06/13/20 25 06/13/2025 CBC granulcytes % 51.6 % 30.0-7 0.0 Not Available [facility] [address] [facility] 1, [place], [address], 06/13/2025 10:50:23 06/13/20 25 06/13/2025 CBC monocytes % 10.4 % 2.0-16 .0 Not Available [facility] [address] [facility] 1, [place], [address], 06/13/2025 10:50:23 06/13/20 25 06/13/2025 CBC granulcytes# 3.8 x10 Not Hamida ilable [facility] [address] [facility] 1, [place], [address], 06/13/2025 10:50:23 06/13/20 25 06/13/2025 CBC lymphocytes # 2.4 x10 Not Available [facility] [address] [facility] 1, [place], [address], 06/13/2025 10:50:23 06/13/20 25 06/13/2025 CBC monocytes # 0.8 x10 Not Avai lable [facility] [address] [facility], [place], [address], 06/13/2025 10:50:23 06/13/20 25 06/13/2025 HBA1C hemaglobin A1C 6.7 4.2-6. 5 high Not Available [facility] [address] [facility] 1, [place], [address], 06/13/2025 10:52:34 06/13/20 25 06/13/2025 CMP (MALE ) glucose 114.0 mg/dL 60.0-9 9.0 high Not Available [facility] [address] [facility] 1, [place], [address], 06/13/2025 11:11:25 06/13/20 25 06/13/2025 CMP (MALE ) BUN (blood urea nitrogen) 15.0 mg/dL 10.0-2 6.0 Not Available [facility] [address] [facility] 1, [place], [address], 06/13/2025 11:11:25 06/13/20 25 06/13/2025 CMP (MALE ) creatinine (serum) 1.0 mg/dL 0.4-1. 5 Not Available [facility] [address] [address], [place], [address], 06/13/2025 11:11:25 06/13/20 25 06/13/2025 CMP (MALE ) BUN/creatini ne ratio 15.00 ratio Not Available [facility] [address] [facility] 1, [place], [address], 06/13/2025 11:11:25 06/13/20 25 06/13/2025 CMP (MALE ) eGFR calculated 88.0 Not Available [facility] [address] [facility] 1, [place], , 06/13/2025 11:11:25 06/13/20 25 06/13/2025 CMP (MALE ) total protein 7.6 g/dL 6.0-8. 5 Not Available [facility] [address] [facility] 1, [place], [address], 06/13/2025 11:11:25 06/13/20 25 06/13/2025 CMP (MALE ) total bilirubin 0.5 mg/dL 0.2-1. 3 Not Available [facility] [address] [facility], [place], [address], 06/13/2025 11:11:25 06/13/20 25 06/13/2025 CMP (MALE ) albumin 4.3 g/dL 3.5-5. 5 Not Available [facility] [address] [facility] 1, [place], [address], 06/13/2025 11:11:25 06/13/20 25 06/13/2025 CMP (MALE ) globulin 3.3 calc Not Available [facility] [address] [facility] 1, [place], [address], 06/13/2025 11:11:25 06/13/20 25 06/13/2025 CMP (MALE ) AST (SGOT) 29.0 U/L 0.0-46 .0 Not Available [facility] [address] [facility], [place], [address], 06/13/2025 11:11:25 06/13/20 25 06/13/2025 CMP (MALE ) altv (SGPT) 38.0 U/L 13.0-6 9.0 normal Not Available [facility] [address] [facility], [place], [address], 06/13/2025 11:11:25 06/13/20 25 06/13/2025 CMP (MALE ) A/G ratio 1.3 ratio Not Available [facility] [address] [facility] 1, [place], [address], 06/13/2025 11:11:25 06/13/20 25 06/13/2025 CMP (MALE ) ALP phos 126.0 U/L 30.0-1 40.0 normal Not Available [facility] [address] [facility], [place], [address], 06/13/2025 11:11:25 06/13/20 25 06/13/2025 CMP (MALE ) calcium 9.6 mg/dL 8.4-10 .5 Not Available [facility] [address] [facility] 1, [place], [address], 06/13/2025 11:11:25 06/13/20 25 06/13/2025 CMP (MALE ) sodium 136.0 mmol/ L 136.0- 145.0 Not Available [facility] [address] [facility], [place], [address], 06/13/2025 11:11:25 06/13/20 25 06/13/2025 CMP (MALE ) potassium 4.3 mmol/ L 3.5-5. 1 Not Available [facility] [address] [facility] 1, [place], [address], 06/13/2025 11:11:25 06/13/20 25 06/13/2025 CMP (MALE ) chloride 101.0 mmol/ L 98.0-1 10.0 normal Not Available [facility] [address] [facility] 1, [place], [address], 06/13/2025 11:11:25 06/13/20 25 06/13/2025 CMP (MALE ) C02 29.0 mmol/ L 22.0-3 1.0 Not Available [facility] [address] [facility] 1, [place], [address], 06/13/2025 11:11:25 06/13/20 25 06/13/2025 CMP (MALE ) anion gap 6.0 calc Not Available [facility] [address] [facility] 1, [place], [address], 06/13/2025 11:11:25 06/13/20 25 06/13/2025 CMP (MALE ) osmolality 282.7 calc Not Available [facility] [address] [facility] 1, [place], [address], 06/13/2025 11:11:25 Result Notes None recorded. Problems Name Problem SNOMED Code Status Onset Date Resolution Date Notes Provider Name and Address Organization Details Recorded Time Essential hypertension 35580016 Active 2023 CHRISTOPHER godoy [facility] 4 15:40:39 Diabetes mellitus 72411005 Active 2023 CHRISTOPHER godoy [facility] 4 15:40:55 Body mass index 40+ - severely obese 043965962 Active 2024 Marta godoy [facility] 5 14:34:24 Problem Notes None recorded. Procedures Surgical History Date Name Laterality Status Provider Name and Address Organization Details Recorded Time 2 Remove kidney open completed SHANNAN GUTIERREZ PA-C [address] [place], [address], [facility] 05/11/2024 11:40:33 Gallbladder Surgery completed Geovanna Judge [facility] 03/14/2024 14:11:01 operative procedure on foot completed Marta Gibbons [facility] 07/26/2025 10:24:43 Imaging Results None recorded. Procedure Notes None recorded. Medical Equipment None Reported. Allergies No known drug allergies Medications Name Sig Start Date Stop Date Status Note LastModified by Organization Details LastModified Time Prescriptio n - Prior Authorizati on Request active Not Available Not Available N ot Available cyclobenzap rine 10 mg tablet TAKE 1 TABLET BY MOUTH THREE TIMES DAILY NEEDED FOR 15 DAYS 2024 active Not Available Not Available Not Avai lable promethazin e-DM 6.25 mg-15 mg/5 mL oral syrup 03/14 completed Not Available Not Available Not Available prednisone 10 mg tablet TAKE 3 TABLETS BY MOUTH ONCE DAILY FOR 5 DAYS 02/22 completed Not Available Not Available Not Available doxycycline hyclate 100 mg capsule Take 1 capsule twice a day by oral route for 7 days. 08/21 completed Not Available Not Available Not Available clindamycin HCl 300 mg capsule TAKE 1 CAPSULE BY MOUTH THREE TIMES DAILY FOR 10 DAYS 11/26 completed Not Available Not Available Not Available cetirizine 10 mg tablet TAKE 1 TABLET BY MOUTH ONCE DAILY 07/26 completed Not Available Not Available Not Available azithromyci n 250 mg tablet TAKE 2 TABLETS BY MOUTH ON DAY 1, THEN TAKE 1 TABLET DAILY ON DAYS 2 through 5 11/26 completed Not Available Not Available Not Available ofloxacin 0.3 % eye drops PLACE 2 DROPS IN AFFECTED EAR 4 TIMES A DAY FOR 7 DAYS 12/14 completed Not Available Not Available Not Available hydrocodone 5 mg-acetamin ophen 325 mg tablet TAKE 1 TABLET BY MOUTH EVERY 6 HOURS NEEDED FOR PAIN 01/14 completed Not Available Not Available Not Available lisinopril 20 mg tablet TAKE ONE TABLET BY MOUTH ONCE DAILY 01/06 completed Not Available Not Available Not Available glipizide 10 mg tablet TAKE ONE TABLET BY MOUTH DAILY 05/11 completed Not Available Not Available Not Available prednisone 20 mg tablet TAKE 3 TABLETS BY MOUTH EVERY DAY IN THE MORNING FOR 3 DAYS 12/14 completed Not Available Not Available Not Available sulfamethox azole 800 mg-trimetho prim 160 mg tablet 02/22 completed Not Available Not Available Not Available hydrocodone 10 mg-acetamin ophen 325 mg tablet TAKE ONE TABLET BY MOUTH EVERY 6 HOURS NEEDED FOR PAIN for SEVEN DAYS 02/22 completed Not Available Not Available Not Available omeprazole 40 mg capsule,del ayed release TAKE 1 CAPSULE BY MOUTH ONCE DAILY active Not Available Not Available No t Available amoxicillin 500 mg tablet TAKE 1 TABLET BY MOUTH THREE TIMES A DAY TIL GONE 12/14 completed Not Available Not Available Not Available ondansetron 8 mg disintegrat ing tablet 8 MG ORALLY EVERY 8 HOURS NEEDED FOR NAUSEA AND VOMITING 12/14 completed Not Available Not Available Not Available Imodium A-D 2 mg tablet TAKE 1 TABLET AT FIRST EPISODE OF DIARRHEA; TAKE 1/2 TABLET AT SECOND EPISODE OF DIARRHEA; TAKE 1/2 TABLET AT THIRD EPISODE OF DIARRHEA 03/14 completed Not Available Not Available Not Available tamsulosin 0.4 mg capsule TAKE 1 CAPSULE BY MOUTH ONCE DAILY 05/11 completed Not Available Not Available Not Available OneTouch Ultra Test strips 05/11 completed Not Available Not Available Not Available benzonatate 100 mg capsule TAKE 1 CAPSULE BY MOUTH THREE TIMES DAILY NEEDED FOR COUGH 02/22 completed Not Available Not Available Not Available cephalexin 500 mg capsule TAKE 1 CAPSULE BY MOUTH THREE TIMES A DAY FOR 7 DAYS 12/14 completed Not Available Not Available Not Available pantoprazol e 40 mg tablet,pierce yed release Take 1 tablet every day by oral route. 07/25 completed Not Available Not Available Not Available oseltamivir 75 mg capsule TAKE 1 CAPSULE BY MOUTH TWICE DAILY FOR 5 DAYS 02/22 completed Not Available Not Available Not Available prednisone 50 mg tablet TAKE 1 TABLET BY MOUTH EVERY DAY 12/14 completed Not Available Not Available Not Available divalproex ER 500 mg tablet,exte nded release 24 hr TAKE ONE TABLET BY MOUTH At Bedtime 05/11 completed Not Available Not Available Not Available olanzapine 10 mg disintegrat ing tablet DISSOLVE ONE TABLET in MOUTH DAILY NEEDED FOR anger 05/11 completed Not Available Not Available Not Available lisinopril 30 mg tablet TAKE 1 TABLET BY MOUTH ONCE DAILY active Not Available Not Available No t Available docusate sodium 100 mg capsule TAKE ONE CAPSULE BY MOUTH EVERY 6 TO 8 HOURS. USE WHEN TAKING OXYCODONE /NARCOTIC S TO PREVENT CONSTIPAT ION 07/26 completed Not Available Not Available Not Available lidocaine HCl 2 % mucosal solution 12/14 completed Not Available Not Available Not Available Cortisporin -TC 3.3 mg-3 mg-10 mg-0.5 mg/mL ear drops,suspe nsion Instill 5 drops twice a day by otic route for 7 days. 01/14 completed Not Available Not Available Not Available ondansetron 4 mg disintegrat ing tablet DISSOLVE 1 TABLET ON THE TONGUE EVERY 8 HOURS NEEDED FOR NAUSEA. MAX OF 3 DOSES PER DAY 07/26 completed Not Available Not Available Not Available cefdinir 300 mg capsule Take 1 capsule every 12 hours by oral route for 7 days. 03/09 completed Not Available Not Available Not Available fluticasone propionate 50 mcg/actuati on nasal spray,suspe nsion [place] 2 sprays every day by intranasa l route for 30 days. 07/26 completed Not Available Not Available Not Available risperidone 1 mg tablet TAKE 1 TABLET BY MOUTH TWICE DAILY 05/11 completed Not Available Not Available Not Available risperidone 0.5 mg tablet TAKE ONE TABLET BY MOUTH TWICE DAILY 01/06 completed Not Available Not Available Not Available amoxicillin 875 mg-potassiu m clavulanate 125 mg tablet TAKE 1 TABLET BY MOUTH EVERY 12 HOURS FOR 7 DAYS 02/22 completed Not Available Not Available Not Available oxycodone 5 mg tablet TAKE 1 TABLET BY MOUTH EVERY 4 TO 6 HOURS TAKE ONLY IF PAIN IS INTOLERAB LE AFTER TYLENOL AND AGGRESSIV E ELEVATION . 07/26 completed Not Available Not Available Not Available neomycin-po lymyxin-hyd rocort 3.5 mg-10,000 unit/mL-1 % ear drops,susp INSTILL 4 DROPS INTO EAR(S) 3 TIMES A DAY FOR 7 DAYS 03/09 completed Not Available Not Available Not Available divalproex ER 250 mg tablet,exte nded release 24 hr TAKE 1 TABLET BY MOUTH IN THE MORNING 05/11 completed Not Available Not Available Not Available diclofenac 1 % topical gel APPLY 1 GRAMS TO THE AFFECTED AREA(S) BY TOPICAL ROUTE 2 TIMES PER DAY 07/25 completed Not Available Not Available Not Available Xarelto 15 mg tablet TAKE ONE TABLET BY MOUTH TWICE DAILY FOR 21 DAYS must take with a meal 01/06 completed Not Available Not Available Not Available Xarelto 20 mg tablet TAKE 1 TABLET BY MOUTH ONCE DAILY active Not Available Not Available No t Available OneTouch Delica Plus Lancet 33 gauge USE one lancet DAILY 05/11 completed Not Available Not Available Not Available Mucinex Sinus-Max Sev Congest-Tiffani n(GG) 10 mg-650mg-40 0mg/20mL oral liq TAKE 20 ML BY MOUTH EVERY 4 HOURS NEEDED FOR COLD symptoms FOR SEVEN DAYS 01/06 completed Not Available Not Available Not Available Paxlovid 300 mg (150 mg x 2)-100 mg tablets in a dose pack Take 3 tablets twice a day by oral route for 5 days. 05/11 completed Not Available Not Available Not Available Mounjaro 7.5 mg/0.5 mL subcutaneou s pen injector INJECT 7.5MG SUB-Q EVERY WEEK FOR 28 DAYS 2024 active Not Available Not Available Not Avai lable Mounjaro 5 mg/0.5 mL subcutaneou s pen injector INJECT 5 MG SUBCUTANE OUSLY EVERY 7 DAYS active Not Available Not Available No t Available Vitals Date Recorded Body height Body mass index (BMI) Body weight Oxygen saturation Heart rate Respiratory rate Body temperature Systolic And Diastolic Provider Name and Address Organization Details Last Updated DateTime 5 182.88 cm 50.5 kg/m2 992758. 36 g 97 % 90 /min 18 /min 98 [degF] 160/80 mm[Hg] [facility] 5 12:22:40 Date Recorded Body height Body mass index (BMI) Body weight Oxygen saturation Heart rate Respiratory rate Body temperature Systolic And Diastolic Provider Name and Address Organization Details Last Updated DateTime 5 182.88 cm 51.3 kg/m2 280666. 92 g 97 % 86 /min 18 /min 98 [degF] 148/80 mm[Hg] [facility] 5 13:47:33 Date Recorded Body height Body mass index (BMI) Body weight Oxygen saturation Heart rate Respiratory rate Body temperature Systolic And Diastolic Provider Name and Address Organization Details Last Updated DateTime 5 182.88 cm 52.1 kg/m2 363742. 47 g 96 % 80 /min 18 /min 97.9 [degF] 142/80 mm[Hg] MARCELINA JAY [facility] 5 12:34:30 Date Recorded Body height Body mass index (BMI) Body weight Body temperature Heart rate Oxygen saturation Systolic And Diastolic Provider Name and Address Organization Details Last Updated DateTime 5 182.88 cm 53.2 kg/m2 553704. 21 g 97.2 [degF] 83 /min 97 % 138/82 mm[Hg] Marta Gibbons [facility] 5 10:20:42 Date Recorded Body height Body mass index (BMI) Body weight Respiratory rate Oxygen saturation Heart rate Body temperature Systolic And Diastolic Provider Name and Address Organization Details Last Updated DateTime 5 182.88 cm 52.5 kg/m2 298042. 65 g 16 /min 95 % 82 /min 98.1 [degF] 140/80 mm[Hg] REINA NAYLOR [facility] 5 15:29:16 Social History Question Answer Notes LastModified by [employer] Details LastModified Time Tobacco Smoking Status Former Smoker Marta Gibbons [facility] 07/26/2025 10:22:56 What Is Your Level Of Caffeine Consumption? Heavy [email or web address] Information not available 07/26/2025 When Did You Quit Smoking? 1-5yearssinc elastcigaret te [email or web address] Information not available 07/26/2025 Do You Or Have You Ever Used Marijuana? Former User [email or web address] Information not available 07/26/2025 What Was The Date Of Your Most Recent Tobacco Screening? 07/26/2025 Information not available 07/26/2025 At What Age Did You Start Smoking Tobacco? 15 [email or web address] Information not available 07/26/2025 Sex: Unknown Functional Status Question Answer Note LastModified by Organizat ion Details LastModified Time Do you use any illicit or recreational drugs? No [email or web address] Information not available 05/11/2024 Do you or have you ever used any other forms of tobacco or nicotine? No [email or web address] Information not available 05/11/2024 What is your level of alcohol consumption? None [email or web address] Information not available 05/11/2024 Are you able to care for yourself independently? Yes [email or web address] Information not available 05/11/2024 Mental Status None recorded. Family History Relationship Description Onset Age of this Age Resolved Age Notes LastModified by Organization Details LastModified Time Mother Malignant neoplasm of breast [email or web address] Not available 2023 11:19:23 Father Coronary arterioscler osis [email or web address] Not available 2023 11:19:56 Medical History Condition Response Cancer Y Blood Diseases Y Immunizations Vaccine Type Date Status Note Provider Byron dockery and Address Organization Details Recorded Time COVID-19, mRNA, LNP-S, PF, 100 mcg/0.5mL dose or 50 mcg/0.25mL dose 08/28/2021 completed DUONG godoy [facility] 07/25/2024 14:34:32 COVID-19, mRNA, LNP-S, PF, 100 mcg/0.5mL dose or 50 mcg/0.25mL dose 09/25/2021 completed DUONG godoy [facility] 07/25/2024 14:34:32 Past Encounters Encounter ID Performer Location Encounter Start Date Encounter Closed Date Diagnosis/Indication Diagnosis SNOMED-CT Code Diagnosis ICD10 Code Diagnosis IMO Codes Diagnosis Note [id number] JOEL GALLARDO NP [facility] ([facility]) [address] [place] [address] 06/03/2023 14:06:56 06/14/2023 17:45:51 Viral upper respiratory tract infection 668057165 J06.9 Discussed to utilize OTC allergy medicine (Claritin or Zyrtec) for post nasal and nasal drainageUs e cool mist humidifier in bedroom at nightOTC Tylenol and Ibuprofen as label directs for any fevers/dis comfortOTC cough medicine or honey at night to help with coughPush increased fluids - water, pedialyteU tilize saline nasal spraySeek follow up at the ED if- no longer drinking fluids, decreased/ no urine output, increased work of breathing. Follow up with PCP or return to walk-in clinic if worsening symptomsRe turn to clinic if any changes, any worsening, any concerns.P atient verbalized understand ing of plan [id number] SUHA BAKER [facility] ([facility]) [address] [place] [phone] 06/22/2023 11:02:57 07/18/2023 09:34:31 Viral gastroenteritis 215177775 A08.4 Discussed with patient that this is viral and will need to run its course. Can take Imodium PRN for diarrhea. Continue to push fluids and eat foods as tolerated. If fever occurs, tylenol and ibuprofen are okay. Reassured with normal activity and eating habits today. If worsening condition or no improvemen t in 7-10 days, return for further evaluation . Patient verbalizes understand ing. [id number] SHANNAN GUTIERREZ PA-C [facility] ([facility]) [address] [place] [phone] 11/26/2023 14:09:31 11/26/2023 15:33:48 Cough 63040761 R05.9 COVID-19 221166620 U07.1 half his xarelto dose while on the Paxlovid [id number] RADHA RAJPUT [facility] ([facility]) [address] [place] [phone] 03/14/2024 14:03:55 03/14/2024 15:43:07 Acute gastroenteritis 03903896 K52.9 Discussed BRATS diet, small frequent sips of fluid. Rest.VSS. No signs of acute abd on exam today.If you develop fever, no urine output over 24 hours, bloody stools/aniya sis, abd pain, or concerns arise return for re-eval. [id number] SHANNAN GUTIERREZ PA-C [facility] ([facility]) [address] [place] [address] 05/11/2024 10:57:55 05/11/2024 11:48:53 Left Achilles tendinitis [id number] 12561 M76.62 foot and ankle stretching handout givenencou raged good foot wear. History of pulmonary embolus [id number] Z86.711 Essential hypertension 57537219 I10 Gastroesop hageal reflux disease 495538841 K21.9 Hyperglycemia 16172212 R 73.9 [id number] Missy Bustos MD [facility] ([facility]) [address] [place] [address] 5 07/25/2024 14:28:08 07/25/2024 16:06:49 Wasp sting [id number] T63.461A On exam today it appears to be just an allergic reaction. Continue Benadryl and may also add Zyrtec and Claritin. [id number] SHANNAN GUTIERREZ PA-C [facility] ([facility]) [address] [place], [place] [phone] 12/14/2024 11:24:03 12/14/2024 12:44:23 History of pulmonary embolus [id number] Z86.711 Essential hypertension 54509910 I10 Gastroesop hageal reflux disease 108295135 K21.9 Acute left otitis media 839699874 H66.92 Acute otitis externa 302 14739 H60.509 Morbid obesity 195311261 E66.01 Prediabetes 976380745 R7 3.03 last A1C 6.2CCA form filled out during today's office visit Body mass index 40+ - severely obese 017559636 Z68.42 [id number] RADHA RAJPUT [facility] ([facility]) [address] [place] [address] 01/14/2025 15:32:29 01/14/2025 16:39:14 Acute suppurative otitis media without spontaneous rupture of ear drum 29029708 H66.001 Discussed use of antibiotic the full 7 days. May take tylenol/mo magaly for discomfort .Return if you develop worsening pain, drainage from the ear or concerns arise. [id number] SHANNAN GUTIERREZ PA-C [facility] ([facility]) [address] [place] [address] 5 02/22/2025 12:18:55 02/22/2025 13:06:34 Acute otitis externa 47358682 H60.509 Acute left otitis media 669489986 H66.92 [id number] SHANNAN GUTIERREZ PA-C [facility] ([facility]) [address] [place] [address] 03/15/2025 13:18:22 03/15/2025 14:35:04 Body mass index 40+ - severely obese 447352936 E66.01 44893098 Acute back pain with sciatica 003729077 M54.42 M54.41 [id number] home exercise program with stretches given. continue with mas 800 mg of Ibuprofen tid. Ice, heat, rest. If not better in 6 weeks will consider MRI. Allergic rhinitis 826719 04 J30.9 6193383 [id number] SHANNAN GUTIERREZ PA-C [facility] ([facility]) [address] [place] [address] 06/18/2025 12:26:56 06/18/2025 13:49:19 Preoperative state 16826649 Z01.818 347206 Pt labs reviwed and normal. Clear for surgery.Re vised cardiac risk 0. AHA cardiac risk low. Surgical lung injury risk 0 Pain in right foot 91365 94772 24763 M79.671 [id number] scheduled to have hardware removal by Dr. Jeannie [facility]. 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 On lifetime of Xarelto per hematologi st referal.Fo r preop: HOLD 72 hrs before surgery and resume once post op bleeding is stopped. no other ASA or NSAIDS for 5 days prior. Prediabetes 962164383 R7 3.03 989559 last A1C 6.7 Essential hypertension 73225825 I10 controlled on lisinopril Morbid obesity 986898204 E66.01 42502 [id number] SHANNAN GUTIERREZ PA-C [facility] ([facility]) [address] [place] [address] 07/26/2025 10:08:50 07/26/2025 11:19:17 Uncontrolled type 2 diabetes mellitus 499163270 E11.65 95162580 A1C 6.7Pt has tried and failed a 3 month at home weight loss program of counting calories and tracking food.I recommend starting a GLP1 for diabetes controlI explained how GLP1 help to lower sugar and lose weight. We discussed possible SE of nausea, vomiting, bloating and constipati on. Showed how to use self injection pen. All questions were answered to satisfacti on Morbid obesity 892438595 E66.01 46371833 Essential hypertension 30690172 I10 63324 controlled on lisinopril [id number] RADHA RAJPUT [facility] ([facility]) [address] [place] [address] 08/07/2025 14:54:33 08/12/2025 16:38:32 Acute pansinusitis 5892513 J01.40 [id number] Discussed use of antibiotic . Take with food.May use Adam's nasal inserts and also apply on chest. Push oral fluids. Consider nasal saline rinses and otc decongesta nt.Use tylenol/mo magaly for benítez. Health Concerns Section Related Observation LastModified by Organization Detai ls LastModified Time None Recorded Concern Status LastModified by Organization Details LastModified Time None Recorded Advance Directives Directive None Recorded Payers Insurance Date Sequence Insurance Name Policy Number Policy Lawrence Covered Member ID Lawrence Member ID Guarantor Name 09/24/2025 2 [place] Tito Mcgill [id number] Tito Mcgill 09/24/2025 1 [place]MEDICARE REPLACEMENT HMO) [id number] Tito Mcgill [id number] Tito Mcgill 09/24/2025 1 [facility] [id number] Tito Mcgill [id number] Tito Mcgill 09/24/2025 1 [facility] [id number] Tito Mcgill [id number] Tito Mcgill 09/24/2025 1 [facility] (PPO) Tito Mcgill [id number] Tito Mcgill 07/05/2025 MALIKA SAPP [id number] Robel Mcgill Notes Date Note Type Note Provider Name and Address Organization Details Recorded Time 5 text/html Ear Pain Brief HPIReported by PatientHPIFor quality, patient reportsshooting pain,throbbing pain,aching pain, anddischarge bloody. For severity, patient reportsinterferes with daily activitiesandinterferes with ability to sleepbut reportsno feverandmoderate pain. For location, patient reportsbilateral. For onset/timing, patient reportsrecurrent episode,started 6months ago, andconstant pain. For duration, patient reportsoccurs dailyandpain lasts ____ __. For context, patient reportsno recent uri,no recent trauma,no recent swimming,no dental problems,no recent airplane travel,no scuba diving, andnon-smoker. I would like an ENT referral for my ears, I still have a lot of trouble with them when I clean them its black and bloody. I have used lots of ear drops and antibiotics and nothing seems to help.Rx of Augmentin in December. did not slat pickler ear drops. SHANNAN GUTIERREZ PA-C [address] [place] [address], [phone], [facility], [place]. 02/22/2025 12:52:51 5 text/html Back PainReported by PatientHPIFor location, patient reportsradiation to buttocks bilateralandradiation to leg bilateralbut reportslumbar bilateral(left leg with numbness most with standing.). For severity, patient reportspain level 5/10,interferes with sleep, andinterferes with work. For quality, patient reportssharp,tingling,dull, stiffness, andpressure. For duration, patient reports2 months. Upper Respiratory SymptomsReported by PatientUpper Respiratory SymptomsFor quality, patient reportscongestedanddry cough. For location, patient reportschest. For severity, patient reportsmoderate. For onset/timing, patient reportssudden. For context, patient reportsno sick contacts,no foreign travel, andnon-smoker. For alleviating factors, patient reportsantihistamines. For associated symptoms, patient reportsno chest pain,no sputum production,no shortness of breath,no wheezing,no cyanosis,no fatigue,no change in number of pillows needed to sleep at night,no sweats,no fever,no sore throat, andno vomiting. EdemaReported by PatientHPIFor quality, patient reportspainfulbut reportslegs swell equallyandimproves overnight. For context, patient reportsprior history of edemaandprior history of deep vein thrombosis. For location, patient reportsble. For severity, patient reportsmoderate. For duration, patient reportsconstant. For onset/timing, patient reportsstarted 2 months ago. 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 taking up to 20 ibuprofen a dayrecently back to work after being off x 2 months for broken toe. SHANNAN GUTIERREZ PA-C [address] [place], [address], [facility] 03/15/2025 14:27:12 5 text/html Pre-OpReported by PatientHPIFor risk factors, patient reportsobesebut reportsno cognitive impairment,no functional impairment,no malnutrition,no frailty,non-smoker,no alcohol misuse,no illicit drug use, andno chronic cardiopulmonary condition. For functional ability, patient reportsdifficulty walking up hillsandunable to walk 4 mphbut reportsable to walk up stairs. For severity, patient reportsmoderateandpain level 5/10. For anesthesia hx, patient reportsno hx of anesthesia complications,no allergy to anesthetic agents, andno family history of anesthesia complications. For post-op support, patient reportsadequate assistance at home. For surgery to be performed, (take hardware out of left great toe).Pt with hx of blood clotting disorder. hx of 3 clots. last was PE in 2021. Was told by notereader he would need to be on blood thinners for life. DOI work comp Nov 2024. Fx of the L 1st metasarsal. Dr. Weaver placed plate and screws for healing and stability.Pt is still in a lot of pain, on the bottom of foot. It was determined the screw is too long and now that bone is healed, time to remove hardware and see if resolved pain.No skin breakdownHas been back to work since February but due to pain he has not been walking at work. SHANNAN GUTIERREZ PA-C [address] [place], [address], [facility] 06/18/2025 13:24:21 5 text/html DiabetesReported by PatientHPIFor compliance, patient reportsnoncompliant with physical activitybut reportscompliant with follow-up visitsandcompliant with diet. For associated symptoms, patient reportsweight gain (___ lbs). For review finger sticks, patient reportsfastin. For duration, patient reportsnew onset. For onset/timing, patient reportsdiagnosed on:(06/18). For control, patient reportshemoglobin a1c has been less than 7andhemoglobin a1c goal is less than 6.5. patient is interested in starting the weight loss injections that you mentioned to him SHANNAN GUTIERREZ PA-C [address] [place], [address], [facility], [place] 07/26/2025 11:15:54 5 text/html ROS as noted in the HPI walk-in; PCP Shannan Gutierrez Patient c/o upper respiratory symptoms. Congestion, productive cough for last 7-8 days. No fever. Has tried several otc meds with no relief. Worsens when he lies down at night. RADHA RAJPUT [address] [place], [address], [facility], [place] 08/12/2025 07:31:32
--- NOTE | 2025-11-10 08:08 | ECG_ITS ---
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 [email or web address]
--- NOTE | 2025-11-10 08:08 | CTR_ITS ---
PROCEDURE INFORMATION: Exam: CTA Chest With Contrast Exam date and time: 11/10/2025 8:36 AM Age: 40 years old Clinical indication: Abdominal pain; Localized; Right upper quadrant (ruq); Chest pressure; Prior surgery; Surgery date: 6+ months; Surgery type: Gb, left nephrectomy; HX of left renal carcinoma; Additional info: Cp TECHNIQUE: Imaging protocol: Computed tomographic angiography of the chest with contrast. Exam focused on the arteries. 3D rendering (Not supervised by radiologist): MIP and/or 3D reconstructed images were created by the technologist. Total images: 233 Radiation optimization: All CT scans at this facility use at least one of these dose optimization techniques: automated exposure control; mA and/or kV adjustment per patient size (includes targeted exams where dose is matched to clinical indication); or iterative reconstruction. Contrast material: OMNIPAQUE 350; Contrast volume: 100 ml; Contrast route: INTRAVENOUS (IV); COMPARISON: CT angio chest PE protcl [id number] 08/17/2023 6:22 AM RADIATION DOSE METRICS: Total DLP (mGy-cm): 1927.35 FINDINGS: Pulmonary arteries: Pulmonary artery evaluation of good technical quality with no pulmonary artery embolism identified. Aorta: No aortic aneurysm nor dissection. Lungs: Nonspecific opacity in the right lung base, favoring pneumonia. Pleural spaces: Unremarkable. No pneumothorax. No pleural effusion. Heart: Unremarkable. No cardiomegaly. No pericardial effusion. Lymph nodes: Mildly enlarged right hilar lymph nodes felt to be reactive. Bones/joints: Spondylosis is noted with exuberant anterior and lateral osteophyte formation. Soft tissues: Unremarkable. PROCEDURE INFORMATION: Exam: CT Abdomen And Pelvis With Contrast Exam date and time: 11/10/2025 8:36 AM Age: 40 years old Clinical indication: Abdominal pain; Localized; Right upper quadrant (ruq); Chest pressure; Prior surgery; Surgery date: 6+ months; Surgery type: Gb, left nephrectomy; HX of left renal carcinoma; Additional info: Cp TECHNIQUE: Imaging protocol: Computed tomography of the abdomen and pelvis with contrast. Radiation optimization: All CT scans at this facility use at least one of these dose optimization techniques: automated exposure control; mA and/or kV adjustment per patient size (includes targeted exams where dose is matched to clinical indication); or iterative reconstruction. Contrast material: OMNIPAQUE 350; Contrast volume: 100 ml; Contrast route: INTRAVENOUS (IV); COMPARISON: CT abdomen pelvis w con* [id number] 04/08/2023 9:57 AM RADIATION DOSE METRICS: Total DLP (mGy-cm): 1927.35 FINDINGS: Liver: Normal. No mass. Gallbladder and biliary ducts: Prior cholecystectomy noted. Pancreas: Normal. No ductal dilation. Spleen: Normal. No splenomegaly. Adrenal glands: Normal. No mass. Kidneys and ureters: Prior left nephrectomy. 10 mm incidental right renal cyst, requiring no further evaluation. Stomach and bowel: Mildly distended distal ileum with fecalization of contents. No evidence of obstruction. Finding may represent slow transit. Appendix: No evidence of appendicitis. Intraperitoneal space: Unremarkable. No free air. No significant fluid collection. Vasculature: Incidental phleboliths noted. Lymph nodes: Unremarkable. No enlarged lymph nodes. Urinary bladder: Unremarkable as visualized. Reproductive: Unremarkable as visualized. Bones/joints: Disc degeneration is most notable at L5/S1. Soft tissues: Unremarkable. Other findings: No evidence of tumor recurrence nor metastatic disease. CT/CT angio chest w abd pel w con IMPRESSION: 1. No aortic aneurysm nor dissection. 2. No pulmonary artery embolism identified. 3. Mildly enlarged right hilar lymph nodes felt to be reactive. 4. Nonspecific opacity in the right lung base, favoring pneumonia. 5. No evidence of metastatic disease. IMPRESSION: 1. Mildly distended distal ileum with fecalization of contents. No evidence of obstruction. Finding may represent slow transit. 2. No evidence of tumor recurrence nor metastatic disease.
--- NOTE | 2025-11-10 08:09 | W.ED.ABDPA2 ---
HPI - Abdominal Pain General: Chief Complaint: Abdominal Pain Stated Complaint: pain upper R side Time Seen by Provider: 11/10/25 07:59 Source: patient Mode of arrival: ambulatory Limitations: no limitations History of Present Illness: 40-year-old male states he has a history of pulm emboli 2 years ago he is on Eliquis. States over the last few days he has been having some right sided chest pain that is lower radiates into his abdomen. States it is worse when he breathes in deep. He denies any fever denies any cough denies any vomiting. Related Data Home Medications ?Medication ?Instructions ?Recorded ?Confirmed lisinopril 30 mg tablet 30 mg PO DAILY 01/10/25 10/15/25 omeprazole 40 mg capsule,delayed 40 mg PO DAILY 01/10/25 10/15/25 release rivaroxaban 20 mg tablet (Xarelto) 20 mg PO DAILY 01/10/25 10/15/25 cyclobenzaprine 10 mg tablet mg PO 10/15/25 10/15/25 tirzepatide 7.5 mg/0.5 mL mg SUBCUT 10/15/25 10/15/25 subcutaneous pen injector (Miguelunchrisro) Previous Rx's ?Medication ?Instructions ?Recorded dicyclomine 20 mg tablet 20 mg PO TID PRN abdominal pain 10/15/25 #30 tabs doxycycline hyclate 100 mg tablet 100 mg PO BID 7 days #14 tabs 11/10/25 Allergies Allergy/AdvReac Type Severity Reaction Status Date / Time No Known Allergies Allergy Verified 10/15/25 18:18 [facility] PFSH: Medical History (Updated 11/10/25 @ 09:19 by Wilfrido Orozco MD) Morbid obesity with BMI of 45.0-49.9, adult GERD (gastroesophageal reflux disease) History of nephrolithiasis Hypertension Bilateral pulmonary embolism Hx of renal cell cancer Intermittent explosive disorder Type 2 diabetes mellitus Surgical History History of lithotripsy History of left radical nephrectomy (2013) for Renal Cell CA Hx of cholecystectomy (2011) Family History Mother , AT AGE 41 Cancer BREAST Father No problems noted. Social History (Reviewed 08/14/25 @ 17:30 by STEVIE León Smoking and tobacco/nicotine status: former use of tobacco/nicotine Quit status (tobacco/nicotine): has quit using Year quit tobacco: 2021 Former quit date comment: smoked x15 years Second hand smoke exposure: Yes (At work.) Alcohol intake: former Substance/Drug Use: former Adopted: No Caregiver/support person: No Lives independently: Yes Household members: family Housing: House Marital status: Number of children: 1 Highest education level completed: GED or Equivalent service: No Current occupational status: employed Physical Exam Const: COMMON NORMALS: patient oriented x3 HENMT: COMMON NORMALS: normocephalic and atraumatic HEAD & SCALP: normocephalic and atraumatic Neck/C-Spine: COMMON NORMALS: full ROM and supple Chest: COMMONS NORMALS: normal inspection of the chest Resp: COMMON NORMALS: normal respiratory effort, No retractions, No use of accessory muscles and clear to auscultation bilaterally AUSCULTATION: clear to auscultation bilaterally Cardio: COMMON NORMALS: regular rhythm and No murmurs present (Cardio) RATE: tachycardic RHYTHM: regular rhythm GI: COMMON NORMALS: Normal to inspection, nondistended, normoactive bowel sounds present, Soft to palpation, non-tender and no masses PALPATION: Yes Soft to palpation Extremity: COMMON NORMALS: normal to inspection and full ROM Neuro: COMMON NORMALS: patient oriented x3, moves all extremities and no focal motor deficits Psych: COMMON NORMALS: mental status grossly normal, Normal thought process present and cooperative THOUGHT PROCESS: Normal thought process present Skin: COMMON NORMALS: no rashes or lesions noted and no wounds GENERAL SKIN EXAM: no rashes or lesions noted Course Vital Signs: Vital signs: Vital Signs Temperature 98.2 F 11/10/25 08:04 Pulse Rate 114 H 11/10/25 08:04 Respiratory Rate 16 11/10/25 08:31 Blood Pressure 154/98 11/10/25 08:04 Pulse Oximetry 94 11/10/25 08:04 Oxygen Delivery Me thod Room Air 11/10/25 08:04 MDM - Abdominal Pain Medical Decision Making 48-year-old male presenting here with right lower chest and right upper quadrant abdominal pain. Differential include pulm emboli, pneumonia, pneumothorax, pancreatitis. Did CT his chest abdomen pelvis did show likely right lower lobe pneumonia. Does have elevated white count no signs of sepsis here. He had no hypoxia CT of his abdomen showed no acute abnormalities he had no pulmonary emboli. I believe he is stable for discharge we will start him on doxycycline he is follow-up with PCP and return if worsening. ekg interperted by me at 0827 sinus tach hr [address] elevation qrs 88 qtc 364 Second EKG interpretative by me at 0916 sinus tachycardia heart rate [address] elevation QRS 79 QTc 368 Medical Records I reviewed the patient's medical records. Lab Data I reviewed the patient's lab results. 11/10/25 08:08 11/10/25 08:08 Labs/Radiology: Radiology Impressions Chest/Abdomen/Pelvis CT 11/10/25 08:08 IMPRESSION: 1. No aortic aneurysm nor dissection. 2. No pulmonary artery embolism identified. 3. Mildly enlarged right hilar lymph nodes felt to be reactive. 4. Nonspecific opacity in the right lung base, favoring pneumonia. 5. No evidence of metastatic disease. IMPRESSION: 1. Mildly distended distal ileum with fecalization of contents. No evidence of obstruction. Finding may represent slow transit. 2. No evidence of tumor recurrence nor metastatic disease. Laboratory Results WBC 20.15 10^3/uL (3.29-11.43) H 11/10/25 08:08 RBC 5.05 10^6/uL (3.85-5.65) 11/10/25 08:08 Hgb 14.90 g/dL (11.27-16.99) 11/10/25 08:08 Hct 44.3 % (37-53) 11/10/25 08:08 MCV 87.7 fl (82-101) 11/10/25 08:08 MCH 29.5 pg (27-33) 11/10/25 08:08 MCHC 33.6 g/dL (30-55) 11/10/25 08:08 RDW 12.4 % (12.1-15.1) 11/10/25 08:08 Plt Count 327 10^3/cmm (157-399) 11/10/25 08:08 MPV 9.1 fL (7.4-10.4) 11/10/25 08:08 Neut % (Auto) 81.6 % 11/10/25 08:08 Lymph % (Auto) 10.3 % 11/10/25 08:08 Franklin % (Auto) 6.8 % 11/10/25 08:08 Eos % (Auto) 0.3 % 11/10/25 08:08 Baso % (Auto) 0.6 % 11/10/25 08:08 Neut # (Auto) 16.43 10^3/uL (1.8-7.7) H 11/10/25 08:08 Lymph # (Auto) 2.1 10^3/uL (0.8-4.8) 11/10/25 08:08 Franklin # (Auto) 1.4 10^3/uL (0.2-0.9) H 11/10/25 08:08 Eos # (Auto) 0.1 10^3/uL (0.0-0.8) 11/10/25 08:08 Baso # (Auto) 0.1 10^3/uL (0.0-0.1) 11/10/25 08:08 Nucleated RBC % (auto) 0 % 11/10/25 08:08 Nucleated RBCs # 0.0 /100WBC 11/10/25 08:08 PT 12.90 SECONDS (12.1-14.9) 11/10/25 08:08 INR 0.91 (0.8-1.2) 11/10/25 08:08 Sodium 134 mmol/L (136-145) L 11/10/25 08:08 Potassium 4.3 mmol/L (3.5-5.1) 11/10/25 08:08 Chloride 99 mmol/L (98-107) 11/10/25 08:08 Carbon Dioxide 22 mmol/L (22-29) 11/10/25 08:08 Anion Gap 17.3 (5-19) 11/10/25 08:08 BUN 9 mg/dL (6-20) 11/10/25 08:08 Creatinine 0.9 mg/dL (0.7-1.2) 11/10/25 08:08 GFR Calculation 93.5 mL/min (90-130) 11/10/25 08:08 Glucose 129 mg/dL (65-115) H 11/10/25 08:08 Calculated Osmolality 278 mOsm/kg (285-295) L 11/10/25 08:08 Calcium 9.2 mg/dL (8.5-10.5) 11/10/25 08:08 Total Bilirubin 0.5 mg/dL (0.15-1.2) 11/10/25 08:08 AST 16 U/L (0-40) 11/10/25 08:08 ALT 32 U/L (0-41) 11/10/25 08:08 Alkaline Phosphatase 157 U/L (40-130) H 11/10/25 08:08 Troponin T Baseline 7 ng/L (0-15) 11/10/25 08:08 Total Protein 7.5 g/dL (6.6-8.7) 11/10/25 08:08 Albumin 4.6 g/dL (3.5-5.2) 11/10/25 08:08 Globulin 2.9 g/dL (1.3-4.6) 11/10/25 08:08 Lipase 41 U/L (13-60) 11/10/25 08:08 All radiology interpretation(s) finalized by discharge Discharge Plan Discharge Patient Disposition: Home Clinical Impression: Pneumonia Condition: Stable Prescriptions: New doxycycline hyclate 100 mg tablet 100 mg PO BID 7 Days Qty: 14 0RF No Action cyclobenzaprine 10 mg tablet PO Mounjaro 7.5 mg/0.5 mL pen injector SUBCUT dicyclomine 20 mg tablet 20 mg PO TID PRN (Reason: abdominal pain) Qty: 30 0RF omeprazole 40 mg capsule,delayed release(DR/EC) 40 mg PO DAILY lisinopril 30 mg tablet 30 mg PO DAILY Xarelto 20 mg tablet 20 mg PO DAILY Discharge Orders: Discharge ED (Routine); Ordered 11/10/25 Ordered By: Wilfrido Orozco Referrals: Shannan Gutierrez PA [Primary Care Provider, [facility] Flat[facility]] - 4-7 days Discharge Diet: Advance as tolerated Discharge Activity: Resume usual activity Patient Instructions: Pneumonia (ED) Print Language: Polish Coding Level of Care Code ED [employer] Drawer for Fabian Colón
[2025-11-10 08:18] LABS: Hematocrit 44.3 % (37-53); Hemoglobin 14.90 g/dL (11.27-16.99); Mean Corpuscular HGB Conc 33.6 g/dL (30-55); Mean Corpuscular Hemoglobin 29.5 pg (27-33); Mean Corpuscular Volume 87.7 fl (82-101); Nucleated Red Blood Cells % 0 %; Platelet Count 327 10^3/cmm (157-399); Red Blood Count 5.05 10^6/uL (3.85-5.65); White Blood Count 20.15 10^3/uL (3.29-11.43)
[2025-11-10 08:28] LABS: INR 0.91 (0.8-1.2); Prothrombin Time 12.90 SECONDS (12.1-14.9)
[2025-11-10] MEDS: ondansetron 2 mg/ML SDV 2 mL 4 MG IVP (08:30)
[2025-11-10 08:31] VITALS: RESP 16
[2025-11-10] MEDS: morphine 4 mg/mL SDV 1 mL IVP (08:31)
[2025-11-10 08:37] VITALS: BP 148/82; PULSE 104; RESP 18; O2SAT 97
[2025-11-10 08:37] LABS: Troponin(5th) Baseline 7 ng/L (0-15)
[2025-11-10 08:40] LABS: Alanine Aminotransferase 32 U/L (0-41); Albumin Level 4.6 g/dL (3.5-5.2); Alkaline Phosphatase 157 U/L (40-130); Anion Gap 17.3 (5-19); Aspartate Amino Transferase 16 U/L (0-40); Blood Urea Nitrogen 9 mg/dL (6-20); Calcium 9.2 mg/dL (8.5-10.5); Carbon Dioxide 22 mmol/L (22-29); Chloride 99 mmol/L (98-107); Globulin 2.9 g/dL (1.3-4.6); Glucose 129 mg/dL (65-115); Lipase 41 U/L (13-60); Osmolality Calculated 278 mOsm/kg (285-295); Potassium 4.3 mmol/L (3.5-5.1); Sodium 134 mmol/L (136-145); Total Protein 7.5 g/dL (6.6-8.7)
[2025-11-10] MEDS: iohexol 350 mg/mL 500 mL Btl (per mL) IV (08:41)
--- NOTE | 2025-11-10 09:16 | ECG_ITS ---
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 Measurements Intervals [place] Rate: 100 P: 52 FL: 196 QRS: 3 QRSD: 79 T: 48 QT: 311 QTc: 403 Interpretive Statements SINUS TACHYCARDIA POSSIBLE LEFT ATRIAL ENLARGEMENT [-0.1mV P-WAVE IN V1/V2] POSSIBLE LEFT VENTRICULAR HYPERTROPHY [VOLTAGE CRITERIA PLUS LAE OR QRS WIDENING] Compared to ECG 11/10/2025 08:27:08 NO SIGNIFICANT CHANGE Electronically Signed On 11-10-2025 17:01:54 SISAL PICKER by Denys Gonzalez M.D. [email or web address]
[2025-11-10 09:48] VITALS: BP 146/81; PULSE 103; O2SAT 97
== END 2025-11-10 09:50 | disposition home or self-care (01) ==
PROVIDERS: Emergency Provider Emergency Medicine; PCP Physician Assistant
DX: J18.9 Pneumonia, unspecified organism (principal); R00.0 Tachycardia, unspecified; I10 Essential (primary) hypertension; Z86.711 Personal history of pulmonary embolism; Z79.01 Long term (current) use of anticoagulants
CPT/HCPCS: 36415; 71275; 74177; 80053; 83690; 84484; 85025; 85610; 93005; 96361; 96374; 96375; 99285; J2270; J2405; J7030